=== PATIENT | female | born 1975 | race Caucasian/White ===

== ENCOUNTER 2024-01-31 13:29 | Observation (INO) ==
--- NOTE | 2024-01-31 13:46 | Emergency Department Note ---
History of Present Illness General Chief complaint: Dizziness Stated complaint: DIZZINESS WITH NAUSEA Time Seen by Provider: 01/31/24 13:40 History of Present Illness NAME: SAMMY ORANTES AGE: 48 SEX: F : 1975 ARRIVES VIA: Walk-In INFORMANT: Patient ED PROVIDER(S): TOÑO Sotelo, Lora Peralta DO The patient is a well-appearing 48-year-old female who arrives to the emergency department for evaluation of dizziness that began yesterday morning when she awoke. She reports she felt fine while laying in bed, however when she stood up to use the restroom she almost fell over. She reports she had to close her eyes for 30 seconds for the dizziness to go away. She reports she took an herbal supplement for the dizziness, which did not help. She denies a history of vertigo, however she reports she did have recent episode of sinus congestion with popping in her ears. She denies any difficulty with speech, unilateral weakness, headache, at this time. Home Medications Medication Instructions Recorded Confirmed Type atorvastatin 10 mg tablet 10 mg PO HS 01/31/24 01/31/24 History Allergies Allergy/AdvReac Type Severity Reaction Status Date / Time No Known Allergies Allergy Unverified 01/31/24 15:20 Past Med/Surg History Medical History HLD (hyperlipidemia) Iron deficiency anemia Surgical History (Updated 01/31/24 @ 18:47 by Heike Carlson PA-C) Hx of tonsillectomy Hx of esophagogastroduodenoscopy Hx of colonoscopy Family History (Updated 01/31/24 @ 18:48 by Heike Carlson PA-C) Father Coronary heart disease Other Heart disease Social History (Updated 01/31/24 @ 19:00 by Heike Carlson PA-C) Smoking Status: Former smoker Smoking End Date: quit 10 years ago; Hx Alcohol Use: No Hx Substance Use: No Preferred Language: Tamaz[place] marital status: Feels Safe at Home: Yes Physical Exam Vital Signs Vital Signs - 24 hr 01/31/24 13:30 01/31/24 13:32 01/31/24 13:49 Temperature 36.3 C L Temperature Source Temporal Artery Scan Pulse Rate 72 Pulse Rate [Left Finger] 60 Pulse Rate from SpO2 Sensor Pulse Rhythm Regular Pulse Strength Normal Respiratory Rate 18 20 Respiratory Effort / Characteristics Non-Labored Spontaneous Non-Labored Spontaneous Respiratory Depth Normal Normal Respiratory Pattern Regular Regular Blood Pressure 137/89 Blood Pressure [Right Arm] 121/75 Blood Pressure Mean 105 Blood Pressure Mean [Right Arm] 90 Blood Pressure Position Sitting Blood Pressure Position [Right Arm] Semi-fowlers Pulse Oximetry 98 99 Oxygen Delivery Method Room Air Room Air Room Air Sepsis Recent Fever Within 48 Hours No Sepsis New/Unexplained Change in Mental Status No Sepsis Action Taken by Nursing No Action Required 01/31/24 14:19 01/31/24 14:20 01/31/24 14:30 Temperature Temperature Source Pulse Rate 56 L 55 L 58 L Pulse Rate [Left Finger] Pulse Rate from SpO2 Sensor 57 L 57 L Pulse Rhythm Pulse Strength Respiratory Rate 19 17 14 Respiratory Effort / Characteristics Respiratory Depth Respiratory Pattern Blood Pressure 119/69 Blood Pressure [Right Arm] Blood Pressure Mean 85 Blood Pressure Mean [Right Arm] Blood Pressure Position Blood Pressure Position [Right Arm] Pulse Oximetry 98 98 98 Oxygen Delivery Method Room Air Sepsis Recent Fever Within 48 Hours Sepsis New/Unexplained Change in Mental Status Sepsis Action Taken by Nursing 01/31/24 14:31 01/31/24 15:00 01/31/24 15:30 Temperature Temperature Source Pulse Rate 56 L 61 56 L Pulse Rate [Left Finger] Pulse Rate from SpO2 Sensor Pulse Rhythm Pulse Strength Respiratory Rate 15 11 L Respiratory Effort / Characteristics Respiratory Depth Respiratory Pattern Blood Pressure 130/77 119/73 Blood Pressure [Right Arm] Blood Pressure Mean 94 88 Blood Pressure Mean [Right Arm] Blood Pressure Position Blood Pressure Position [Right Arm] Pulse Oximetry 98 100 Oxygen Delivery Method Room Air Sepsis Recent Fever Within 48 Hours Sepsis New/Unexplained Change in Mental Status Sepsis Action Taken by Nursing 01/31/24 16:00 01/31/24 16:00 01/31/24 16:30 Temperature Temperature Source Pulse Rate 67 65 66 Pulse Rate [Left Finger] Pulse Rate from SpO2 Sensor Pulse Rhythm Pulse Strength Respiratory Rate 19 14 22 Respiratory Effort / Characteristics Respiratory Depth Respiratory Pattern Blood Pressure 126/73 126/73 134/76 Blood Pressure [Right Arm] Blood Pressure Mean 90 84 95 Blood Pressure Mean [Right Arm] Blood Pressure Position Blood Pressure Position [Right Arm] Pulse Oximetry 96 100 99 Oxygen Delivery Method Room Air Room Air Room Air Sepsis Recent Fever Within 48 Hours Sepsis New/Unexplained Change in Mental Status Sepsis Action Taken by Nursing 01/31/24 16:40 01/31/24 16:50 01/31/24 17:00 Temperature Temperature Source Pulse Rate 62 61 78 Pulse Rate [Left Finger] Pulse Rate from SpO2 Sensor 62 Pulse Rhythm Pulse Strength Respiratory Rate 17 15 20 Respiratory Effort / Characteristics Respiratory Depth Respiratory Pattern Blood Pressure Blood Pressure [Right Arm] Blood Pressure Mean Blood Pressure Mean [Right Arm] Blood Pressure Position Blood Pressure Position [Right Arm] Pulse Oximetry 100 100 99 Oxygen Delivery Method Room Air Sepsis Recent Fever Within 48 Hours Sepsis New/Unexplained Change in Mental Status Sepsis Action Taken by Nursing 01/31/24 17:00 01/31/24 17:30 01/31/24 18:00 Temperature Temperature Source Pulse Rate 72 Pulse Rate [Left Finger] Pulse Rate from SpO2 Sensor Pulse Rhythm Pulse Strength Respiratory Rate 15 Respiratory Effort / Characteristics Respiratory Depth Respiratory Pattern Blood Pressure 139/73 122/84 124/84 Blood Pressure [Right Arm] Blood Pressure Mean 95 96 90 Blood Pressure Mean [Right Arm] Blood Pressure Position Blood Pressure Position [Right Arm] Pulse Oximetry 100 Oxygen Delivery Method Room Air Sepsis Recent Fever Within 48 Hours Sepsis New/Unexplained Change in Mental Status Sepsis Action Taken by Nursing 01/31/24 18:00 01/31/24 18:00 01/31/24 18:30 Temperature Temperature Source Pulse Rate 76 66 Pulse Rate [Left Finger] Pulse Rate from SpO2 Sensor Pulse Rhythm Pulse Strength Respiratory Rate 16 16 Respiratory Effort / Characteristics Respiratory Depth Respiratory Pattern Blood Pressure 124/84 117/61 Blood Pressure [Right Arm] Blood Pressure Mean 97 92 Blood Pressure Mean [Right Arm] Blood Pressure Position Blood Pressure Position [Right Arm] Pulse Oximetry 100 100 Oxygen Delivery Method Room Air Room Air Sepsis Recent Fever Within 48 Hours Sepsis New/Unexplained Change in Mental Status Sepsis Action Taken by Nursing 01/31/24 18:30 Temperature Temperature Source Pulse Rate 69 Pulse Rate [Left Finger] Pulse Rate from SpO2 Sensor Pulse Rhythm Pulse Strength Respiratory Rate 18 Respiratory Effort / Characteristics Respiratory Depth Respiratory Pattern Blood Pressure Blood Pressure [Right Arm] Blood Pressure Mean Blood Pressure Mean [Right Arm] Blood Pressure Position Blood Pressure Position [Right Arm] Pulse Oximetry 99 Oxygen Delivery Method Room Air Sepsis Recent Fever Within 48 Hours Sepsis New/Unexplained Change in Mental Status Sepsis Action Taken by Nursing VITALS: Vitals are noted on the nurse's note and reviewed by myself. Vital signs stable. GENERAL: 48-year-old female, in no acute distress, nondiaphoretic, well- developed well-nourished. SKIN: The skin was without rashes, erythema, edema, or bruising. HEAD: Normocephalic atraumatic. EARS: External auditory canals clear, tympanic membranes pearly aldridge without erythema, right TM effusion. EYES: Nystagmus present with lateral left movement. NECK: Supple without nuchal rigidity. No lymphadenopathy. No thyromegaly. Cervical spine is nontender. No JVD. HEART: Regular rate and rhythm without murmurs gallops or rubs. LUNGS: Clear to auscultation bilaterally without wheezes, rales or rhonchi. No retractions or accessory muscle use. MUSCULOSKELETAL: No muscle atrophy, erythema, or edema noted. Full range of motion without joint tenderness in all extremities. No tenderness to palpation. Strength 5/5 throughout. NEURO: Patient was alert and oriented to person place and time. No focal neurological deficits. Course Administered Medications Atorvastatin Calcium (Atorvastatin 10 Mg Tab) 10 mg PO HS ALTON Stop: 03/01/24 21:24 Last Admin: 01/31/24 22:16 Dose: 10 mg Documented By: DMM Discontinued Medications Diazepam (Diazepam 5 Mg/Ml 10ml Vial) 2.5 mg IV NOW STA Stop: 01/31/24 15:40 Last Admin: 01/31/24 15:53 Dose: 2.5 mg Documented By: LMAri Sodium Chloride (Nss) 1,000 mls @ 999 mls/hr IV .Q1H1M ONE Stop: 01/31/24 16:39 Last Infusion: 01/31/24 16:55 Dose: Infused Documented By: Admin: 01/31/24 15:51 Dose: 999 mls/hr Documented By: LMM Ioversol (Optiray 320 125ml) 115 ml IV ONCE ONE Stop: 01/31/24 17:16 Last Admin: 01/31/24 17:15 Dose: 115 ml Documented By: ANAT Meclizine HCl (Meclizine Hcl 25 Mg Tab) 25 mg PO NOW STA Stop: 01/31/24 13:47 Last Admin: 01/31/24 13:56 Dose: 25 mg Documented By: LMM Methylprednisolone (Methylprednisolone 125 Mg/2 Ml Vial) 125 mg IV NOW STA Stop: 01/31/24 18:59 Last Admin: 01/31/24 19:50 Dose: Not Given Documented By: AMOL Ondansetron HCl (Ondansetron Inj 2 Mg/Ml 2 Ml Vial) 4 mg IV NOW STA Stop: 01/31/24 16:54 Last Admin: 01/31/24 17:02 Dose: 4 mg Documented By: IVONNE Prednisone (Prednisone 20 Mg Tab) 40 mg PO NOW ONE Stop: 01/31/24 19:04 Last Admin: 01/31/24 19:52 Dose: 40 mg Documented By: AMOL Medical Decision Making Differential Diagnosis Benign positional vertigo, dehydration, hypovolemia, anemia, tumor, infection, hypoglycemia, electrolyte abnormalities, cardiac sources, intracerebral event, toxicologic, neurologic, as well as other pathologies. Medical Records Attestation: I reviewed the patient's medical records. Home Medications Current Medication List: was personally reviewed by me Laboratory Data Attestation: I reviewed the patient's lab results. No leukocytosis, stable hemoglobin and hematocrit, history of iron deficiency anemia, no electrolyte abnormalities. 01/31/24 15:40 01/31/24 15:40 Lab Results 01/31/24 Range/Units 15:40 WBC 5.86 (4.8-10.8) K/ul RBC 4.28 (4.20-5.40) M/uL Hgb 10.2 L (12.0-16.0) g/dl Hct 33.8 L (37.0-47.0) % MCV 79.0 L (80.0-100.0) fL MCH 23.8 L (25.0-34.0) pg MCHC 30.2 L (32.0-36.0) g/dL RDW Std Deviation 53.6 H (36.4-46.3) fL RDW Coeff of Gregorio 19.4 H (11.5-14.5) % Plt Count 287 (130-400) K/uL MPV 10.0 (9.4-12.4) fL Immature Gran % (Auto) 0.2 % Neut % (Auto) 62.2 % Lymph % (Auto) 27.3 % Quay % (Auto) 6.0 % Eos % (Auto) 3.6 % Baso % (Auto) 0.7 % Neut # (Auto) 3.65 (1.40-6.50) K/uL Lymph # (Auto) 1.60 (1.20-3.40) K/uL Quay # (Auto) 0.35 (0.11-0.59) K/uL Eos # (Auto) 0.21 (0.00-0.50) K/uL Baso # (Auto) 0.04 (0.00-0.20) K/uL Immature Gran # (Auto) 0.01 (0.01-0.20) K/uL Sodium 139 (136-145) mmol/L Potassium 3.8 (3.5-5.1) mmol/L Chloride 108 H (98-107) mmol/L Carbon Dioxide 24 (21-32) mmol/L Anion Gap 7 (3-11) BUN 12 (6-23) mg/dl Creatinine 0.66 (0.6-1.2) mg/dl Est Cr Clr Drug Dosing 103.4 ml/min Est GFR ( Amer) 122.8 ml/min Est GFR (Non-Af Amer) 105.9 ml/min BUN/Creatinine Ratio 18.2 (10-20) Glucose 89 (70-99(Fasting)) mg/dl Calcium 9.3 (8.6-10.3) mg/dl Total Bilirubin 0.4 (0.2-1.0) mg/dl AST 19 (13-39) U/L ALT 18 (7-52) U/L Alkaline Phosphatase 69 (34-104) U/L Total Protein 7.7 (6.0-8.3) gm/dl Albumin 4.6 (3.4-5.0) gm/dl Globulin 3.1 (2.5-4.0) gm/dl Albumin/Globulin Ratio 1.5 (0.9-2) Imaging Data Radiologist's Impression: Head CT 01/31/24 13:53 CT head/brain wo con CLINICAL HISTORY: dizziness Technique: Contiguous axial CT images of the head were acquired from the base of the skull to the vertex without intravenous contrast administration. Images were viewed in brain, subdural and bone windows. Automated dose lowering techniques and/or adjustment according to patient size were utilized for this exam. Comparison: None available at the time of this dictation. Findings: The ventricles, basal cisterns, and cerebral sulci are normal. There is no acute intracranial hemorrhage or evidence of acute territorial infarction. Neither mass effect, shift of the midline structures, nor abnormal extra-axial fluid collections are shown. Imaged portions of the paranasal sinuses and mastoid air cells are clear. The orbits appear normal. There are no acute fractures of the calvaria or scalp swelling. Impression: No acute intracranial hemorrhage, no evidence of acute territorial infarction or other acute intracranial disease process. ACT 112: Negative or not required by law. Electronically signed by: Beny Sutton M.D. 01/31/2024 2:11 PM Head CTA 01/31/24 16:53 CT angio head w con, CT angio neck with con CLINICAL HISTORY: dizzy TECHNIQUE: CT angiography of the head and neck was performed following intravenous administration of iodinated contrast. Coronal and sagittal MIPS were obtained from the axial data set and were submitted for review. Automated dose lowering techniques and/or adjustment according to patient size were utilized for this examination. All measurements were calculated based on NASCET criteria. Comparison: Comparison is made to CT head 01/31/2024 FINDINGS: Small thyroid nodules are seen which do not require follow-up by ACR criteria. CTA Neck: A 3 vessel aortic arch is shown. There is no significant atherosclerotic plaque in the aortic arch or the origins of the innominate, left common carotid, and left subclavian arteries. The common carotid, external carotid, cervical segments of the internal carotid arteries, and the cervical segments of the vertebral arteries are patent without hemodynamically significant stenosis. The left vertebral artery is dominant. CTA Head: The anterior and posterior cerebral circulations are patent. No hemodynamically significant stenosis, aneurysm, dissection, or arteriovenous malformation is shown. IMPRESSION: 1. No occlusion, hemodynamically significant stenosis, or dissection in the major cervical arteries. 2. No occlusion, hemodynamically significant stenosis, aneurysm, dissection, or arteriovenous malformation in the major intracranial arteries. Assessment of stenosis of the internal carotid arteries is based on NASCET criteria. ACT 112: Negative or not required by law. Electronically signed by: Beny Sutton M.D. 01/31/2024 5:58 PM Neck CTA 01/31/24 16:53 CT angio head w con, CT angio neck with con CLINICAL HISTORY: dizzy TECHNIQUE: CT angiography of the head and neck was performed following intravenous administration of iodinated contrast. Coronal and sagittal MIPS were obtained from the axial data set and were submitted for review. Automated dose lowering techniques and/or adjustment according to patient size were utilized for this examination. All measurements were calculated based on NASCET criteria. Comparison: Comparison is made to CT head 01/31/2024 FINDINGS: Small thyroid nodules are seen which do not require follow-up by ACR criteria. CTA Neck: A 3 vessel aortic arch is shown. There is no significant atherosclerotic plaque in the aortic arch or the origins of the innominate, left common carotid, and left subclavian arteries. The common carotid, external carotid, cervical segments of the internal carotid arteries, and the cervical segments of the vertebral arteries are patent without hemodynamically significant stenosis. The left vertebral artery is dominant. CTA Head: The anterior and posterior cerebral circulations are patent. No hemodynamically significant stenosis, aneurysm, dissection, or arteriovenous malformation is shown. IMPRESSION: 1. No occlusion, hemodynamically significant stenosis, or dissection in the major cervical arteries. 2. No occlusion, hemodynamically significant stenosis, aneurysm, dissection, or arteriovenous malformation in the major intracranial arteries. Assessment of stenosis of the internal carotid arteries is based on NASCET criteria. ACT 112: Negative or not required by law. Electronically signed by: Beny Sutton M.D. 01/31/2024 5:58 PM ECG Data Attestation: I personally reviewed and interpreted this ECG as follows: Indication: + other (dizziness) Rate (beats per minute): 65 Rhythm: + normal sinus ECG [place]: + Normal ECG ST segments: + Normal ST segments Comparison ECG Date: no prior available MDM Narrative The patient is a well-appearing 48-year-old female who arrives to the emergency department for the above-stated complaint. Upon examination the patient does have positive nystagmus to the left, dizziness and a sensation of the room spinning with position changes. Oral meclizine was provided to the patient, as well as an order for a dry head CT. The CT scan of the head was reassuring. Upon reexamination the patient did not exhibit symptomatic improvement of the dizziness from the meclizine. A saline lock was placed, and the patient was provided an IV dose of Valium. CBC, CMP were obtained at that time as well. CBC showed no leukocytosis, chronic iron deficiency anemia, CMP showed no electrolyte abnormalities. EKG was obtained which showed normal sinus rhythm at a rate of 65. I evaluated the patient approximately 1 hour after administration of the Valium. She reports a slight improvement, however with sitting up the patient did exhibit significant episode of dizziness. CTA imaging of the head and neck were obtained, which were reassuring at that time. I did speak with the admitting team regarding the patient. They agreed to keep her based on the acute onset of dizziness, no history of previous episodes of vertigo. Dr. Julia Garcia will take over care of the patient at this time. Impression & Plan Vertigo Discharge Plan Visit Data Chief Complaint: Dizziness Stated Complaint: DIZZINESS WITH NAUSEA ED Provider: Lora Peralta ED Midlevel Provider: Alycia Obregon Discharge Problem: Vertigo Patient Disposition: Admitted As Inpatient Discharge Instructions Interventions: ED Discharge Assessment Last Done: 01/31/24 20:55
[2024-01-31] MEDS: MECLIZINE HCL 25 MG TAB PO STA (13:56)
--- NOTE | 2024-01-31 14:13 | CT Scan Report ---
CT head/brain wo con CLINICAL HISTORY: dizziness Technique: Contiguous axial CT images of the head were acquired from the base of the skull to the elena dieudonne without intravenous contrast administration. Images were viewed in brain, subdural and bone [facility]. Automated dose lowering techniques and/or adjustment according to patient size were utilized for this exam. Comparison: None available at the time of this dictation. Findings: The ventricles, basal cisterns, and cerebral sulci are normal. There is no acute intracranial hemorrh age or evidence of acute territorial infarction. Neither mass effect, shift of the midline structures , nor abnormal extra-axial fluid collections are shown. Imaged portions of the paranasal sinuses and mastoid air cells are clear. The orbits appear normal. There are no acute fractures of the calvaria or scalp swelling. Impression: No acute intracranial hemorrhage, no evidence of acute territorial infarction or other acute intracra nial disease process. ACT 112: Negative or not required by law. Electronically signed by: Beny Sutton M.D. 01/31/2024 2:11 PM
[2024-01-31] MEDS: SODIUM CHLORIDE 0.9% 1,000 ML IV ONE (15:51)
[2024-01-31] MEDS: diazePAM 5 MG/ML 10ML VIAL IV STA (15:53)
[2024-01-31 16:30] LABS: Basophils # (auto) 0.04 K/uL (0.00-0.20); Basophils % (auto) 0.7 %; Eosinophils # (auto) 0.21 K/uL (0.00-0.50); Eosinophils % (auto) 3.6 %; Hematocrit (blood only) 33.8 % (37.0-47.0); Hemoglobin 10.2 g/dl (12.0-16.0); Immature Granulocytes # (auto) 0.01 K/uL (0.01-0.20); Immature Granulocytes % (auto) 0.2 %; Lymphocytes % (auto) 27.3 %; Mean Corpuscular Hemoglobin 23.8 pg (25.0-34.0); Mean Corpuscular Hgb Conc 30.2 g/dL (32.0-36.0); Monocytes # (auto) 0.35 K/uL (0.11-0.59); Neutrophils # (auto) 3.65 K/uL (1.40-6.50); Neutrophils % (auto) 62.2 %; Platelet Count 287 K/uL (130-400); RDW Coefficient of Variation 19.4 % (11.5-14.5); RDW Standard Deviation 53.6 fL (36.4-46.3); Red Blood Count 4.28 M/uL (4.20-5.40); White Blood Count 5.86 K/ul (4.8-10.8)
[2024-01-31 16:50] LABS: Albumin Globulin Ratio 1.5 (0.9-2); Albumin Level 4.6 gm/dl (3.4-5.0); BUN Creatinine Ratio 18.2 (10-20); Bilirubin,Total 0.4 mg/dl (0.2-1.0); Calcium 9.3 mg/dl (8.6-10.3); Creatinine Clr Calc Pharmacy 103.4 ml/min; Est GFR (African American) 122.8 ml/min; Est GFR (Non-African American) 105.9 ml/min; Globulin 3.1 gm/dl (2.5-4.0); Potassium 3.8 mmol/L (3.5-5.1); Total Protein 7.7 gm/dl (6.0-8.3)
[2024-01-31] MEDS: ONDANSETRON INJ 2 MG/ML 2 ML VIAL IV STA (17:02)
[2024-01-31] MEDS: OPTIRAY 320 125ml IV ONE (17:15)
--- NOTE | 2024-01-31 17:59 | CT Scan Report ---
CT angio head w con, CT angio neck with con CLINICAL HISTORY: dizzy TECHNIQUE: CT angiography of the head and neck was performed following intravenous administration of iodinated contrast. Coronal and sagittal MIPS were obtained from the axial data set and were submitt ed for review. Automated dose lowering techniques and/or adjustment according to patient size were u tilized for this examination. All measurements were calculated based on NASCET criteria. Comparison: Comparison is made to CT head 01/31/2024 FINDINGS: Small thyroid nodules are seen which do not require follow-up by ACR criteria. CTA Neck: A 3 vessel aortic arch is shown. There is no significant atherosclerotic plaque in the aor tic arch or the origins of the innominate, left common carotid, and left subclavian arteries. The co mmon carotid, external carotid, cervical segments of the internal carotid arteries, and the cervical segments of the vertebral arteries are patent without hemodynamically significant stenosis. The left vertebral artery is dominant. CTA Head: The anterior and posterior cerebral circulations are patent. No hemodynamically significan t stenosis, aneurysm, dissection, or arteriovenous malformation is shown. IMPRESSION: 1. No occlusion, hemodynamically significant stenosis, or dissection in the major cervical arteries. 2. No occlusion, hemodynamically significant stenosis, aneurysm, dissection, or arteriovenous malfor mation in the major intracranial arteries. Assessment of stenosis of the internal carotid arteries is based on NASCET criteria. ACT 112: Negative or not required by law. Electronically signed by: Beny Sutton M.D. 01/31/2024 5:58 PM
--- NOTE | 2024-01-31 18:49 | History & Physical Report ---
Date of Service January 31, 2024 Assessment & Plan (1) Vertigo: (2) HLD (hyperlipidemia): (3) Iron deficiency anemia: Plan This is a 48 y old F who has a significant PMH of HLD, iron deficiency anemia, hx of h pylori s/p treatment, hx of bleeding hemorrhoids who presents to ED 2/2 dizziness. Vertigo admit to med tele under observation possible labrythinitis vs neuritis vs BPPV pt with recent viral illness a few weeks ago, likely influenza refractory to meclizine and diazepam will trial prednisone 40mg x 1 now Initiate medrol dose pack starting tomorrow obtain MRI brain w and w/o contrast to r/o CVA given hx of HLD Prn Meclizine consult PT for amanda maneuver cbc, cmp, mag, a1c, lipid panel in a.m. Iron def anemia in setting of bleeding hemorrhoid follows heme has been receiving IV venofer, will receive dose 4/4 this week she is to get surgical revision of hemorrhoid in near future HLD chronic, stable on statin lipid panel in a.m. DVT ppx: SCDS FULL CODE PCP: Lorelei Tam Dispo : admit to med/surg tele for refractory vertigo Pt was seen and examined in collaboration with DR. Garcia, please see addendum A total of 45 minutes was spent coordinating, documenting, and providing care for this patient excluding time spent in the performance of separately billed services. This included personally viewing all current laboratories and imaging studies, medication reconciliation, outpatient chart review, and discussion with specialists. History of Present Illness Chief Complaint: Dizziness Primary Care Provider: Dr. Lorelei Tam This is a 48 y old F who has a significant PMH of HLD, iron deficiency anemia, hx of h pylori s/p treatment, hx of bleeding hemorrhoids who presents to ED 2/2 dizziness. She describes the dizziness as, "spinning." I feel like I'm on a roller coaster." She denies hx of vertigo or dizziness in the past. She had a viral illness, likely influenza, a few weeks ago. She had sinus congestion, nasal drip and ear popping. She denies f/c/s, chest pain, sob, n/v/d, change in bowel or urinary habits, lower extremity swelling, unilateral weakness. She walks slowly and has not fallen. She denies prior hx of migraine. She denies visual changes or double vision. She has an IUD in place and no possibility of . She is on immunotherapy for environmental allergies. Allergies Allergy/AdvReac Type Severity Reaction Status Date / Time No Known Allergies Allergy Unverified 01/31/24 15:20 Home Medications Medication Instructions Recorded Confirmed Type atorvastatin 10 mg tablet 10 mg PO HS 01/31/24 01/31/24 History Past Med/Surg History Medical History HLD (hyperlipidemia) Iron deficiency anemia Surgical History (Updated 01/31/24 @ 18:47 by Heike Carlson PA-C) Hx of tonsillectomy Hx of esophagogastroduodenoscopy Hx of colonoscopy Family History (Updated 01/31/24 @ 18:48 by Heike Carlson PA-C) Father Coronary heart disease Other Heart disease Social History (Updated 01/31/24 @ 19:00 by Heike Carlson PA-C) Smoking Status: Former smoker Smoking End Date: quit 10 years ago; Hx Alcohol Use: No Hx Substance Use: No Preferred Language: Bruneian marital status: Feels Safe at Home: Yes Review of Systems Review of Systems: All systems reviewed & are unremarkable except as noted in HPI & below Physical Exam Physical Exam: please refer to Dr. Garcia addendum for physical exam findings Results & Data Results & Data Vital Signs (Past 12 Hours) Vital Signs Temp Pulse Pulse Resp BP BP Pulse Ox 01/31/24 18:30 69 18 99 01/31/24 18:30 117/61 01/31/24 18:00 66 16 124/84 100 01/31/24 18:00 76 16 100 01/31/24 18:00 124/84 01/31/24 17:30 72 15 122/84 100 01/31/24 17:00 139/73 01/31/24 17:00 78 20 99 01/31/24 16:50 61 15 100 01/31/24 16:40 62 17 100 01/31/24 16:30 66 22 134/76 99 01/31/24 16:00 65 14 126/73 100 01/31/24 16:00 67 19 126/73 96 01/31/24 15:30 56 L 11 L 119/73 100 01/31/24 15:00 61 15 130/77 98 01/31/24 14:31 56 L 01/31/24 14:30 58 L 14 119/69 98 01/31/24 14:20 55 L 17 98 01/31/24 14:19 56 L 19 98 01/31/24 13:49 01/31/24 13:32 36.3 C L 72 20 137/89 99 01/31/24 13:30 60 18 121/75 98 O2 Del Method 01/31/24 18:30 Room Air 01/31/24 18:30 01/31/24 18:00 Room Air 01/31/24 18:00 Room Air 01/31/24 18:00 01/31/24 17:30 Room Air 01/31/24 17:00 01/31/24 17:00 Room Air 01/31/24 16:50 01/31/24 16:40 01/31/24 16:30 Room Air 01/31/24 16:00 Room Air 01/31/24 16:00 Room Air 01/31/24 15:30 Room Air 01/31/24 15:00 01/31/24 14:31 01/31/24 14:30 Room Air 01/31/24 14:20 01/31/24 14:19 01/31/24 13:49 Room Air 01/31/24 13:32 Room Air 01/31/24 13:30 Room Air Laboratory Results I have independently reviewed and interpreted patient's admitting labs including CBC, CMP Diagnostic Findings Head CT 01/31/24 13:53 CT head/brain wo con CLINICAL HISTORY: dizziness Technique: Contiguous axial CT images of the head were acquired from the base of the skull to the vertex without intravenous contrast administration. Images were viewed in brain, subdural and bone windows. Automated dose lowering techniques and/or adjustment according to patient size were utilized for this exam. Comparison: None available at the time of this dictation. Findings: The ventricles, basal cisterns, and cerebral sulci are normal. There is no acute intracranial hemorrhage or evidence of acute territorial infarction. Neither mass effect, shift of the midline structures, nor abnormal extra-axial fluid collections are shown. Imaged portions of the paranasal sinuses and mastoid air cells are clear. The orbits appear normal. There are no acute fractures of the calvaria or scalp swelling. Impression: No acute intracranial hemorrhage, no evidence of acute territorial infarction or other acute intracranial disease process. ACT 112: Negative or not required by law. Electronically signed by: Beny Sutton M.D. 01/31/2024 2:11 PM Head CTA 01/31/24 16:53 CT angio head w con, CT angio neck with con CLINICAL HISTORY: dizzy TECHNIQUE: CT angiography of the head and neck was performed following intravenous administration of iodinated contrast. Coronal and sagittal MIPS were obtained from the axial data set and were submitted for review. Automated dose lowering techniques and/or adjustment according to patient size were utilized for this examination. All measurements were calculated based on NASCET criteria. Comparison: Comparison is made to CT head 01/31/2024 FINDINGS: Small thyroid nodules are seen which do not require follow-up by ACR criteria. CTA Neck: A 3 vessel aortic arch is shown. There is no significant atherosclerotic plaque in the aortic arch or the origins of the innominate, left common carotid, and left subclavian arteries. The common carotid, external carotid, cervical segments of the internal carotid arteries, and the cervical segments of the vertebral arteries are patent without hemodynamically significant stenosis. The left vertebral artery is dominant. CTA Head: The anterior and posterior cerebral circulations are patent. No hemodynamically significant stenosis, aneurysm, dissection, or arteriovenous malformation is shown. IMPRESSION: 1. No occlusion, hemodynamically significant stenosis, or dissection in the major cervical arteries. 2. No occlusion, hemodynamically significant stenosis, aneurysm, dissection, or arteriovenous malformation in the major intracranial arteries. Assessment of stenosis of the internal carotid arteries is based on NASCET criteria. ACT 112: Negative or not required by law. Electronically signed by: Beny Sutton M.D. 01/31/2024 5:58 PM Neck CTA 01/31/24 16:53 CT angio head w con, CT angio neck with con CLINICAL HISTORY: dizzy TECHNIQUE: CT angiography of the head and neck was performed following intravenous administration of iodinated contrast. Coronal and sagittal MIPS were obtained from the axial data set and were submitted for review. Automated dose lowering techniques and/or adjustment according to patient size were utilized for this examination. All measurements were calculated based on NASCET criteria. Comparison: Comparison is made to CT head 01/31/2024 FINDINGS: Small thyroid nodules are seen which do not require follow-up by ACR criteria. CTA Neck: A 3 vessel aortic arch is shown. There is no significant atherosclerotic plaque in the aortic arch or the origins of the innominate, left common carotid, and left subclavian arteries. The common carotid, external carotid, cervical segments of the internal carotid arteries, and the cervical segments of the vertebral arteries are patent without hemodynamically significant stenosis. The left vertebral artery is dominant. CTA Head: The anterior and posterior cerebral circulations are patent. No hemodynamically significant stenosis, aneurysm, dissection, or arteriovenous malformation is shown. IMPRESSION: 1. No occlusion, hemodynamically significant stenosis, or dissection in the major cervical arteries. 2. No occlusion, hemodynamically significant stenosis, aneurysm, dissection, or arteriovenous malformation in the major intracranial arteries. Assessment of stenosis of the internal carotid arteries is based on NASCET criteria. ACT 112: Negative or not required by law. Electronically signed by: Beny Sutton M.D. 01/31/2024 5:58 PM Medications Administered Medication List Discontinued Medications Diazepam (Diazepam 5 Mg/Ml 10ml Vial) 2.5 mg IV NOW STA Stop: 01/31/24 15:40 Last Admin: 01/31/24 15:53 Dose: 2.5 mg Documented By: LMAri Sodium Chloride (Nss) 1,000 mls @ 999 mls/hr IV .Q1H1M ONE Stop: 01/31/24 16:39 Last Infusion: 01/31/24 16:55 Dose: Infused Documented By: LMAri Admin: 01/31/24 15:51 Dose: 999 mls/hr Documented By: LMM Ioversol (Optiray 320 125ml) 115 ml IV ONCE ONE Stop: 01/31/24 17:16 Last Admin: 01/31/24 17:15 Dose: 115 ml Documented By: LANNYK Meclizine HCl (Meclizine Hcl 25 Mg Tab) 25 mg PO NOW STA Stop: 01/31/24 13:47 Last Admin: 01/31/24 13:56 Dose: 25 mg Documented By: LMM Ondansetron HCl (Ondansetron Inj 2 Mg/Ml 2 Ml Vial) 4 mg IV NOW STA Stop: 01/31/24 16:54 Last Admin: 01/31/24 17:02 Dose: 4 mg Documented By: LMM ECG Additional Comments: I have independently reviewed and interpreted patient's admitting EKG which revealed: 65, nsr, no st or t wave change COVID-19 Results Results COVID-19 Adm Lab Results: RBC 4.28 M/uL (4.20-5.40) 01/31/24 WBC 5.86 K/ul (4.8-10.8) 01/31/24 Hgb 10.2 g/dl (12.0-16.0) L 01/31/24 Hct 33.8 % (37.0-47.0) L 01/31/24 Plt Count 287 K/uL (130-400) 01/31/24 Neutrophils (%) (Auto) 62.2 % 01/31/24 Lymphocytes (%) (Auto) 27.3 % 01/31/24 Monocytes # (Auto) 0.35 K/uL (0.11-0.59) 01/31/24 Eosinophils # (Auto) 0.21 K/uL (0.00-0.50) 01/31/24 Immature Granulocyte % (Auto) 0.2 % 01/31/24 Neutrophils # (Auto) 3.65 K/uL (1.40-6.50) 01/31/24 Lymphocytes # (Auto) 1.60 K/uL (1.20-3.40) 01/31/24 Monocytes # (Auto) 0.35 K/uL (0.11-0.59) 01/31/24 Eosinophils # (Auto) 0.21 K/uL (0.00-0.50) 01/31/24 Basophils # (Auto) 0.04 K/uL (0.00-0.20) 01/31/24 Immature Granulocyte # (Auto) 0.01 K/uL (0.01-0.20) 4 Na 139 mmol/L (136-145) 01/31/24 K 3.8 mmol/L (3.5-5.1) 01/31/24 Cl 108 mmol/L (98-107) H 01/31/24 CO2 24 mmol/L (21-32) 01/31/24 Anion Gap 7 (3-11) 01/31/24 BUN 12 mg/dl (6-23) 01/31/24 Creatinine 0.66 mg/dl (0.6-1.2) 01/31/24 BUN/Creatinine Ratio 18.2 (10-20) 01/31/24 Glucose Level 89 mg/dl (70-99(Fasting)) 01/31/24 Ca 9.3 mg/dl (8.6-10.3) 01/31/24 Total Bilirubin 0.4 mg/dl (0.2-1.0) 01/31/24 AST/SGOT 19 U/L (13-39) 01/31/24 ALT/SGPT 18 U/L (7-52) 01/31/24 Alkaline Phosphatase 69 U/L (34-104) 01/31/24 Total Protein 7.7 gm/dl (6.0-8.3) 01/31/24 Albumin 4.6 gm/dl (3.4-5.0) 01/31/24 Globulin 3.1 gm/dl (2.5-4.0) 01/31/24 Albumin/Globulin Ratio 1.5 (0.9-2) 01/31/24 Code Status & VTE Plan Code Status FULL CODE Supervising Physician Co-Signing Physician Notes I have seen and discussed the case with the collaborating advanced practitioner. I agree with the above H&P. I have reviewed and confirmed the patients medical history, the findings on physical examination, and the patients diagnosis and treatment plan with Aldo HONEYCUTT and agree with the information documented. In short, Ms. Dickerson is a 48 year old woman with history of HLD, prior tobacco use, iron deficiency anemia on venofer infusions, hemorrhoids who is admitted for evaluation and management of dizziness. Patient reports sudden onset dizziness last evening, that is mostly positional. She reports rooms as "spinning" and last about 45 seconds until it "settles." She denies double vision or any neurologic symptoms such as headache, vision disturbance, speech/dysphagia. Trial of fluids and meclizine unsuccessful. Imaging unremarkable. Patient with recent URI illness about 2 weeks earlier, marked by ear fullness and congestion. Denies current flu like symptoms or congestion. Prior dizziness history with TAMI, but notes this is different as anemia more orthostatic with standing rather than all position changes. GENERAL APPEARANCE: AxOx4, generally well-appearing F, no acute distress. declined phil hallpike given symptoms + laying flat and did not wish to reproduce HEENT: NC, AT. MMM. EOMI, clear conjunctiva, oropharynx clear. No nystagmus noted. no skew deviation NECK: Supple without lymphadenopathy. No stiffness or restricted ROM. HEART: Normal rate and regular rhythm, normal S1/S1, no m/r/g LUNGS: CTAB, moving air well. No crackles or wheezes are heard. ABDOMEN: Soft, nontender, nondistended with good bowel sounds heard. BACK: No CVAT, no obvious deformity. EXTREMITIES: Without cyanosis, clubbing or edema. NEUROLOGICAL: Grossly nonfocal. Alert and oriented, moving all 4 extremities. CN II-XII intact. Strength intact Skin: Warm and dry without any rash. #Persistent dizziness, predominately positional -like BPPV, however with recent illness viral neuritis possible, stroke less likely but given ongoing symptoms will r/o posterior stroke as > 40 years of age hx HLD and tobacco use TSH WNL -MRI ordered -Medrol dose pack -Amanda maneuver per PT ordered -Lipid panel & A1C ordered Rest of plan as above I spent a total of 15 minutes coordinating, documenting, and providing care for this patient excluding time spent in the performance of separately billed services. All of the aforementioned completed outside of collaborating with the assigned advanced practitioner for a full treatment plan. I have reviewed the advanced practitioner's documentation, and I agree with, and take responsibility for the plan of care
[2024-01-31] MEDS: methylPREDNISolone 125 MG/2 ML VIAL IV STA (19:50)
[2024-01-31] MEDS: predniSONE 20 MG TAB PO ONE (19:52)
[2024-01-31] MEDS ORDERED: methylPREDNISolone 4 MG TAB, 6 DAY TAPER PO SCH (21:25)
[2024-01-31] MEDS ORDERED: ALUMINUM/MAGNESIUM SUSP 30 ML UDC PO PRN (21:25)
[2024-01-31] MEDS ORDERED: ACETAMINOPHEN 325 MG TAB PO PRN (21:25)
[2024-01-31] MEDS: ATORVASTATIN 10 MG TAB PO SCH (22:16)
[2024-01-31] MEDS: GADOBUTROL 7.5ML VIAL IV ONE (23:22)
--- NOTE | 2024-02-01 00:57 | Magnetic Resonance Report ---
Exam(s): MRI HEAD W/WO Contrast IV Amt: 7.5cc gadavist EXAM: MR Head Without and With Intravenous Contrast CLINICAL HISTORY: Reason for exam: dizziness, vertigo, r/o cva. TECHNIQUE: Magnetic resonance images of the head/brain without and with intravenous contrast in multiple planes. CONTRAST: Patient received 7.5cc gadavist of IV contrast COMPARISON: Comparison made to prior head CT from January 31, 2024. FINDINGS: Brain: Minimal nonspecific white matter changes. No mass. No hemorrhage. No acute infarct. Small left choroidal fissure cyst. The flow voids at the base of the brain are intact. Normal parenchymal enhancement. The dural venous sinuses are patent. Ventricles: Unremarkable. No ventriculomegaly. Bones/joints: Unremarkable. No acute fracture. Sinuses: Unremarkable as visualized. No acute sinusitis. Mastoid air cells: Unremarkable as visualized. No mastoid effusion. Orbits: Unremarkable as visualized. IMPRESSION: No evidence of acute intracranial pathology. Minimal nonspecific white matter changes. Electronically signed by: Lisa Crespo MD 02/01/24 00:56 AM
[2024-02-01] MEDS: methylPREDNISolone 4 MG TAB PO SCH ×3 (08:10→12:57)
[2024-02-01] MEDS: MECLIZINE HCL 25 MG TAB PO PRN (08:11)
[2024-02-01 08:58] LABS: Albumin Globulin Ratio 1.6 (0.9-2); Albumin Level 4.4 gm/dl (3.4-5.0); Basophils # (auto) 0.03 K/uL (0.00-0.20); Basophils % (auto) 0.3 %; Bilirubin,Total 0.3 mg/dl (0.2-1.0); Calcium 8.9 mg/dl (8.6-10.3); Chol HDL Ratio 2.8 (0-5); Creatinine Clr Calc Pharmacy 114.7 ml/min; Est GFR (African American) 126.7 ml/min; Est GFR (Non-African American) 109.3 ml/min; Globulin 2.8 gm/dl (2.5-4.0); Hematocrit (blood only) 35.3 % (37.0-47.0); Hemoglobin 10.6 g/dl (12.0-16.0); Immature Granulocytes # (auto) 0.03 K/uL (0.01-0.20); Immature Granulocytes % (auto) 0.3 %; Lymphocytes # (auto) 0.94 K/uL (1.20-3.40); Lymphocytes % (auto) 8.9 %; Magnesium 1.8 mg/dl (1.7-2.4); Mean Corpuscular Hemoglobin 23.9 pg (25.0-34.0); Mean Corpuscular Volume 79.7 fL (80.0-100.0); Mean Platelet Volume 9.9 fL (9.4-12.4); Monocytes # (auto) 0.26 K/uL (0.11-0.59); Monocytes % (auto) 2.5 %; Neutrophils # (auto) 9.32 K/uL (1.40-6.50); Platelet Count 301 K/uL (130-400); RDW Coefficient of Variation 19.9 % (11.5-14.5); RDW Standard Deviation 55.5 fL (36.4-46.3); Red Blood Count 4.43 M/uL (4.20-5.40); Total Protein 7.2 gm/dl (6.0-8.3); White Blood Count 10.58 K/ul (4.8-10.8)
[2024-02-01 10:41] LABS: Estimated Average Glucose 94 mg/dl; Hemoglobin A1C 4.9 % (4.5-5.6)
[2024-02-01] MEDS: ONDANSETRON INJ 2 MG/ML 2 ML VIAL IV PRN (14:59)
--- NOTE | 2024-02-01 16:43 | Discharge Summary ---
Date of Service February 01, 2024 Admission HPI Per Admitting Provider This is a 48 y old F who has a significant PMH of HLD, iron deficiency anemia, hx of h pylori s/p treatment, hx of bleeding hemorrhoids who presents to ED 2/2 dizziness. She describes the dizziness as, "spinning." I feel like I'm on a roller coaster." She denies hx of vertigo or dizziness in the past. She had a viral illness, likely influenza, a few weeks ago. She had sinus congestion, nasal drip and ear popping. She denies f/c/s, chest pain, sob, n/v/d, change in bowel or urinary habits, lower extremity swelling, unilateral weakness. She walks slowly and has not fallen. She denies prior hx of migraine. She denies visual changes or double vision. She has an IUD in place and no possibility of . She is on immunotherapy for environmental allergies. Admission Exam Per Admitting Provider GENERAL APPEARANCE: AxOx4, generally well-appearing F, no acute distress. declined phil hallpike given symptoms + laying flat and did not wish to reproduce HEENT: NC, AT. MMM. EOMI, clear conjunctiva, oropharynx clear. No nystagmus noted. no skew deviation NECK: Supple without lymphadenopathy. No stiffness or restricted ROM. HEART: Normal rate and regular rhythm, normal S1/S1, no m/r/g LUNGS: CTAB, moving air well. No crackles or wheezes are heard. ABDOMEN: Soft, nontender, nondistended with good bowel sounds heard. BACK: No CVAT, no obvious deformity. EXTREMITIES: Without cyanosis, clubbing or edema. NEUROLOGICAL: Grossly nonfocal. Alert and oriented, moving all 4 extremities. CN II-XII intact. Strength intact Skin: Warm and dry without any rash. Principal Diagnosis BPPV Discharge Exam GENERAL: Alert and oriented x3. NAD, on RA. HEENT: No pallor, no icterus. Pupils equal, round and reactive to light. Oral mucosa moist. NECK: No JVD, no neck masses. HEART: S1 and S2 heard. Regular rate and rhythm. No murmur, no gallop. RESPIRATORY SYSTEM: Normal AP diameter. No accessory muscle use. No wheezing, no crackles. ABDOMEN: Soft, bowel sounds present, nontender, no distention. CENTRAL NERVOUS SYSTEM: No facial droop. Speech is clear. Obeys simple commands. Moves extremities. EXTREMITIES: No edema, no erythema seen. Discharge Data Allergies Allergy/AdvReac Type Severity Reaction Status Date / Time No Known Allergies Allergy Unverified 01/31/24 15:20 Consultations 01/31/24 18:45 ED Decision to Admit Stat Ordered Studies 01/31/24 13:53 CT head/brain wo con Stat 01/31/24 16:53 CT angio head w con Stat CT angio neck with con Stat 01/31/24 18:59 MR brain wo/w con Routine Hospital Course (1) Vertigo: (2) HLD (hyperlipidemia): (3) Iron deficiency anemia: Plan 48 y old F who has a significant PMH of HLD, iron deficiency anemia, hx of h pylori s/p treatment, hx of bleeding hemorrhoids who presents to ED 2/2 dizziness. Given recent viral infection, there was concern of labyrinthitis versus neuritis besides another dd of bppv. But given clinical picture where she had vertigo every time she rotates her head/changed position, strong likelihood of BPPV. No dizziness between changing positions from lying to sitting and sitting to standing if head were kept straight per patient. PT tri ed Amalia maneuver, aborted due to vomiting. PT retried it again later in the evening per RN, successful this time, patient moving around in the hallway with no symptoms. Patient is otherwise hemodynamically stable and had wished to go home today at bedside exam. Will discontinue dexamethasone. Patient is being discharged home with following instruction at the point of discharge: Follow-up with your primary care physician within a week time and likely you will need labs CBC/CMP/magnesium/phosphorus. Follow-up with ENT physician if recurrence of symptoms, coordinate with your PCP office to set up the referral. Take your medications as prescribed. Please make sure that you are able to get your medications today by calling your pharmacy before you leave the hospital so that your treatment continuity is not broken. Home Health Attestation I certify that this patient is under my care and that I, or a physicians circulation assistant working with me, had a face to-face encounter that meets the home health [id number] encounter requirements with this patient. The encounter with the patient was in whole, or in part, for the following medical condition, which is the primary reason for home health care (list medical condition): I certify that, based on my findings, the following services are medically necessary home health services: My clinical findings support the need for the above services because: Further, I certify that my clinical findings support that this patient is homebound (i.e. absences from home require considerable and taxing effort and are for medical reasons or [facility] or infrequently or of short duration when for other reasons) because: Certification for Home Health Services: Based on the above findings, I certify that this patient is confined to the home and needs intermittent fci care, physical therapy and/or speech therapy or continues to need occupational therapy. The patient is under my care, and I have initiated the establishment of the plan of care. This patient will be followed by a physician who will periodically review the plan of care. Total Time Total Time Spent Total Time Spent (In Minutes): 45 Discharge Plan Discharge Items Patient Disposition: Home - Self-Care Reason For Visit: VERTIGO Discharge Diagnosis: BPPV Activity: Resume your previous activity Non-emergency contact: Primary Care Provider Call non-emergency contact if: you have any medication questions Follow-up/Referrals: Lorelei Tam MD [Primary Care Provider] - Diet: Heart Healthy Addtl Attending Provider Instructions: Follow-up with your primary care physician within a week time and likely you will need labs CBC/CMP/magnesium/phosphorus. Follow-up with ENT physician if recurrence of symptoms, coordinate with your PCP office to set up the referral. Take your medications as prescribed. Please make sure that you are able to get your medications today by calling your pharmacy before you leave the hospital so that your treatment continuity is not broken. Pending Studies at Discharge: No Stand-Alone Forms: My [facility], Smoking Cessation Medications and DC Order Prescriptions: New meclizine 25 mg Tablet 25 mg PO TID PRN (Reason: dizziness) Qty: 30 0RF Continued atorvastatin 10 mg tablet 10 mg PO HS Discharge Orders: Discharge Order (Routine); Ordered 02/01/24 Ordered By: Felisha Whelan Admission Data Admit Date/Time: 01/31/24 18:57 Attending Provider: Felisha Whelan Admit Provider: Julia Garcia Primary Care Provider: Lorelei Tam Other Providers: Julia Garcia
[2024-02-01] MEDS ORDERED: methylPREDNISolone 4 MG TAB PO SCH (21:00)
--- NOTE | 2024-02-02 05:33 | Electrocardiogram Report ---
Test Reason : Blood Pressure : / mmHG Vent. Rate : 065 BPM Atrial Rate : 065 BPM P-R Int : 172 ms QRS Dur : 078 ms QT Int : 438 ms P-R-T Axes : 038 049 041 degrees QTc Int : 455 ms Normal sinus rhythm Normal ECG No previous ECGs available Confirmed by Kevin Torres ([id number]) on 02/02/2024 5:33:09 AM Referred By: REFERRED SELF Confirmed By:Kevin Torres
--- OUTSIDE RECORDS SUMMARY | 2024-02-02 06:23 | External Medical Summary | Summary of Care ---
Author Name Unknown Organization [facility] Address [address] [place] [address] Phone [phone] Care Team Providers Care Cistern Room Operator Name Role Phone Lorelei Tam MD Primary Care Provider [phone] Reason for Visit * Reason Comments IV Therapy Venofer Encounter Details Date Type Department Care Team (Latest Contact Info) Description 01/20/2024 8:30 AM EST Hem/Onc Treatment Hematology/Oncology Treatment, [address] [phone] Corin, Chair 11 Hem Onc [address] [address] Iron deficiency anemia due to chronic blood loss*; Iron deficiency anemia, unspecified iron deficiency anemia type Allergies Active Allergy Reactions Criticality Noted Date Comments Pollen 04/28/2022 documented as of this encounter (statuses as of 01/20/2024) Medications Medication Sig Dispensed Refills Start Date End Date Status valACYclovir HCl 500 MG Oral Tablet (Valtrex)Indication s:Herpes simplex virus infection Take 1 Tablet by mouth 2 times a day as needed. 0 02/19/2022 Active Levonorgestrel 20 MCG/24HR Intrauterine Intrauterine Device (Mirena)Indications :Contraception, device intrauterine Insert 1 Each into uterus once. 0 Active Mometasone Furoate 0.1 % External CreamIndications:Ec zema, unspecified type APPLY TO THE AFFECTED AREA ON LEGS AND BACK EVERY DAY NEEDED FOR 2 WEEKS 45 g 1 04/28/2022 Active Clobetasol Propionate 0.05 % External Cream (Temovate) Apply to rash once a day for 1-2 weeks as needed. 45 g 1 08/29/2022 Active Tretinoin 0.025 % External Cream Apply to face nightly. 45 g 1 08/29/2022 Active Clindamycin Phosphate 1 % External Gel Apply to acne prone areas in the morning 60 g 2 11/28/2022 Active Benefiber Oral PowderIndications:O ther constipation Take 1 Tbsf in a glass of water daily 0 12/29/2022 Active Atorvastatin Calcium 10 MG Oral Tablet (Lipitor)Indication s:Hyperlipidemia with target LDL less than 100 TAKE ONE TABLET BY MOUTH EVERY MORNING 90 Tablet 3 05/18/2023 05/17/2024 Active Additional Information Patient taking differently: Daily(Non-Specified), TAKE 1 TABLET BY MOUTH EVERY DAY IN THE MORNING, Reported on 05/22/2023 Hospital, Clinic, or Other Facility Administered Medication Ordered Dose Route Frequency Start Date End Date Status Iron Sucrose (Venofer) 200 mg in NSS 100 mL ivpbIndications:Iron deficiency anemia, unspecified iron deficiency anemia type 200 mg IVPB QWEEK 01/02/2024 01/30/2024 Active Iron Sucrose (Venofer) 200 mg in NSS 100 mL ivpbIndications:Iron deficiency anemia, unspecified iron deficiency anemia type 200 mg IVPB QMONTH 01/31/2024 05/29/2024 Active documented as of this encounter (statuses as of 01/20/2024) Active Problems Problem Noted Date Diagnosed Date Anemia 01/04/2024 Iron deficiency anemia 07/02/2023 Hyperlipidemia with target LDL less than 100 04/2022 Herpes simplex virus infection 04/28/2022 BMI 31.0-31.9,adult 04/28/2022 PTSD (post-traumatic stress disorder) 04/28/2022 Eczema 04/28/2022 Adenomatous polyp of colon 04/28/2022 documented as of this encounter (statuses as of 01/20/2024) Immunizations Name Administration Dates Next Due COVID-19 mRNA, LNP-s, No Pre serve, 2-Dose Series (Moderna) 10/20/2021,03/07/2021,02/07/2021 COVID-19, MRNA-LNP, 23-24, P F, 30 MCG/0.3 mL, 12 YRS AND ABOVE, IM (PFIZER-Comirnaty) 08/21/2023 Covid-19, Mrna, Lnp-s, Pf, B ivalent, 30 Mcg, IM, 12 yrs and above (Pfizer) 11/19/2022 Hepatitis B, 20+ yrs 07/06/2023,02/04/2023,01/05 Seasonal Influenza, PF, 6 M & above, IM , (FluLaval or Fluzone) 08/21/2023,08/09/2022 documented as of this encounter Social History Tobacco Use Types Packs/Day Years Used Date Smoking Tobacco: Never Smokeless Tobacco: Never Alcohol Use Standard Drinks/Week Comments Never 0 (1 standard drink = 0.6 oz pur e alcohol) PHQ-2 Answer Date Recorded PHQ Adult Total Score 0 01/01/2024 Hunger Vital Sign Answer Date Recorded Within the past 12 months, y ou worried that your food would run out before you got the money to buy more. Never true 12/26/19 Within the past 12 months, t he food you bought just didn't last and you didn't have money to get more. Never true 12/26/2022 Sex and Gender Information Value Date Recorded Sex Assigned at Female 08/21/2022 1:37 PM EDT Gender Identity Female 08/21/2022 1:37 PM EDT Sexual Orientation Straight 08/21/2022 1: 37 PM EDT Job Start Date Occupation Industry Not on file Not on file Not on file documented as of this encounter Last Filed Vital Signs Vital Sign Reading Time Taken Comments Blood Pressure 128/80 01/20/2024 8:40 AM EST Pulse 72 01/20/2024 8:40 AM EST Temperature 36.6 C (97.9 F) 01/20/2024 8:40 AM ES T Respiratory Rate 16 01/20/2024 8:40 AM EST Oxygen Saturation 98% 01/20/2024 8:40 AM EST Inhaled Oxygen Concentration - - Weight - - Height - - Body Mass Index - - documented in this encounter Nursing Notes * Korina Larsen, RN - 01/20/2024 10:11 AM EST Goals: Patient will remain free from injury. Possible barriers to meeting goals: ambulating with IV pole Stability of the patient: Moderately stable - low risk of patient condition declining or worsening Summary regarding today's goals: Met: pt remained free of harm today Patient tolerated treatment well without any acute issues or problems. Patient left facility in stable condition and denied any further needs. * Korina Larsen RN - 01/20/2024 9:05 AM EST Chair 7. IV inserted. Patient here for 200mg Venofer infusion, tolerating well so faer, no issues or complaints. Safety and Risk for Injury Patient will remain free from injury. Ensure appropriate safety devices are available. Provide and maintain safe environment. documented in this encounter Plan of Treatment Upcoming Encounters Date Type Department Care Team (Latest Contact Info) Description 01/27/2024 8:30 AM EST Hem/Onc Treatment Hematology/Oncology Treatment, [address] [place] [phone] Corin, Chair 9 Hem Onc [facility] [address] [place] [address] [place] [address] 02/03/2024 8:30 AM EDT Hem/Onc Treatment [address]ematology/[address] [phone] Corin, Chair 11 Hem Onc [facility] [address] [place] [address] [place] [address] 03/02/2024 8:30 AM EDT Hem/Onc Treatment Hematology/Oncology Treatment, [address], [place] [address] Corin, Chair 11 Hem Onc [facility] [address] [place] [address] [place] [address] 03/25/2024 9:45 AM EDT Office Visit Dermatology [address] [place] [address] Tito Escobedo MD [address] [place] [address] 05/19/2024 7:30 AM EDT Hospital Encounter OR [facility], Operating Room, [facility] 1st Floor [address] [place] [address] Ashlyn Santo MD [address] [place] [address] 05/19/2024 7:30 AM EDT - 05/19/2024 8:45 AM EDT Surgery OR [facility], Operating Room, [facility] 1st Floor [address] [place] [address] Ashlyn Santo MD [address], [place] [phone] ANORECTAL EXAM UNDER ANESTHESIA 05/24/2024 9:00 AM EDT [facility] [address], [place] [phone] Dolly Marcos PA-C [address], [place] [phone] 07/04/2024 10:40 AM EDT Office Visit Family Practice [facility] 200 [facility] [place] [address] Karla Mckeon MD [address] [place] [address] Scheduled Procedures Name Priority Associated Diagnoses Date/Ti me ANORECTAL EXAM UNDER ANESTHESIA Hemorrhoids 05/19/2024 7:30 AM EDT HEMORRHOIDECTOMY EXTERNAL AN D INTERNAL COMPLEX Hemorrhoids 05/19/2024 7:30 AM EDT COLONOSCOPY FLEXIBLE PROXIMA L DIAGNOSTIC Recall History of colon polyps Health Maintenance Due Date Last Done Comments DTaP,Tdap,and Td Vaccines (1 - Tdap) 1996 Pap Smear 1998 Cervical Cancer Screening 2007 HPV/Co-Test 2007 Depression Screening 01/01/2025 01/01/2024 Mammogram 01/12/2025 01/12/2024, 12/24, 01/07/2023, Additional history exists Diabetes Screening 01/01/2027 01/01/2024, 0 06/29/2023, 12/27/2022 COLONOSCOPY-EVERY 5 YRS AGES 18-100 05/28/2028 05/28/2023, 05/28/2023 Lipid Panel 01/01/2029 01/01/2024, 08/0 05/2023, 12/27/2022 Colonoscopy Discontinued 05/28/2023, 05/28/2023 Colorectal Cancer Screening Discontinued Hepatitis B Completed 07/06/2023, 01/21, 01/05/2023 COVID-19 Vaccine Completed 08/21/2023, , 10/20/2021, Additional history exists Influenza Vaccine (FLU shot) Completed 08/21/2023, 08/09/2022 Cologuard Discontinued Fecal Occult Blood Test Discontinued GARDASIL-HPV IMMUNIZATION SERIES Aged Out No longer eligible based on patient's age to complete this topic MENINGOCOCCAL (MENACTRA/MENVEO) Aged Out No longer eligible based on patient's age to complete this topic Pneumococcal Vaccine: Pediatrics (0 to 5 Years) and At-Risk Patients (6 to 64 Years) Aged Out No longer eligible based on patient's age to complete this topic Sigmoidoscopy Discontinued documented as of this encounter Medical Devices Not on filedocumented as of this encounter Visit Diagnoses Diagnosis Iron deficiency anemia due to chronic blood loss- Primary Iron deficiency anemia secondary to blood loss (chronic) Iron deficiency anemia, unspecified iron deficiency anemia type Hemorrhoids Unspecified hemorrhoids without mention of complication documented in this encounter Administered Medications Active Administered Medications - up to 3 most recent administrations Medication Order MAR Action Action Date Dose Rate Site diphenhydrAMINE (Benadryl) inj 50 mg 50 mg, IV Push, ONCE PRN Other, Hypersensitivity Reaction, Starting on Thu01/20/24 at 0851, Until Teresa 01/21/24 at 0850, For 24 hours EPINEPHrine 1 MG/ML inj 0.3 mg 0.3 mg, Intramuscular, ONCE PRN Other, Hypersensitivity Reaction or Anaphylaxis, Starting on Thu01/20/24 at 0851, Until Teresa 01/21/24 at 0850, For 24 hours hEParin 100 UNIT/ML Lock Flush inj 500 Units 500 Units (5 mL), IV Lock, PRN Other, IV Flush, Starting on Thu01/20/24 at 0851, Until Teresa 01/21/24 at 0850, For 24 hours, Do not flush if lock, PICC, or central line not in place; IV infusing or unable to flush. Hydrocortisone Sod Suc (PF) (Solu-Cortef) inj 100 mg 100 mg, IV Push, ONCE PRN Other, Hypersensitivity Reaction, Starting on Thu01/20/24 at 0851, Until Teresa 01/21/24 at 0850, For 24 hours NSS infusion 500 mL, Intravenous, at 50 mL/hr, CONTINUOUS, Starting on Thu01/20/24 at 1000, Until Thu01/20/24 at 1959 Start Infusion 01/20/2024 8:51 AM EST 500 mL 50 mL/hr oxygen GAS Inhalation, OXYGEN, First dose on Thu01/20/24 at 0930, Until Discontinued, Device/Managed by: Low Flow Device, Goal SPO2 (%): 91-95, Starting Device: Nasal Cannula, Initial Flow Rate (LPM): 2, Lowest Support: Nasal Cannula: Flow 0-6 LPM. Titrate up/down by 1 LPM., Higher Support: Non-Rebreather (NRB) Mask: Minimum of 10 LPM. Titrate to maintain bag inflation., Titration Interval: Q2 minutes and as needed., Notify Provider: For sudden DECREASE in resting SPO2 to less than 85% and when escalating delivery device., Wean patient off Oxygen when the oxygen saturation is greater than or equal to 93% sodium chloride 0.9 % flush central line 10 mL 10 mL, IV Push, PRN Other, IV Flush, Starting on Thu01/20/24 at 0851, Until Teresa 01/21/24 at 0850, For 24 hours, Do not flush if lock, PICC, or central line not in place; IV infusing or unable to flush. Inactive Administered Medications - up to 3 most recent administrations Medication Order MAR Action Action Date Dose Rate Site Iron Sucrose (Venofer) 200 mg in NSS 100 mL ivpb 200 mg, IV Piggyback, ONCE, 1 dose, On Thu01/20/24 at 1030, Administer over 60 Minutes Start Infusion 01/20/2024 8:51 AM EST 200 mg 100 mL/hr documented in this encounter Care Teams Cistern Room Operator Relationship Specialty Start Date End Date Lorelei Tam MD [address] [place] [address] PCP - General Internal Medicine 12/27/22 documented as of this encounter
--- OUTSIDE RECORDS SUMMARY | 2024-02-02 06:23 | External Medical Summary | Summary of Care ---
Author Name Unknown Organization [facility] Address [address] [place] [address] Phone [phone] Care Team Providers Care Narcotics And/Or Vice Detective Name Role Phone Lorelei Tam MD Primary Care Provider [phone] Reason for Visit * Reason Comments Infusion Venofer Encounter Details Date Type Department Care Team (Latest Contact Info) Description 01/13/2024 9:15 AM EST Hem/Onc Treatment Hematology/Oncology Treatment, [address] [phone] Corin, Chair 8 Hem Onc [address] [address] Iron deficiency anemia due to chronic blood loss*; Iron deficiency anemia, unspecified iron deficiency anemia type Allergies Active Allergy Reactions Criticality Noted Date Comments Pollen 04/28/2022 documented as of this encounter (statuses as of 01/13/2024) Medications Medication Sig Dispensed Refills Start Date [...] as of this encounter (statuses as of 01/13/2024) Active Problems Problem Noted Date Diagnosed Date Anemia 01/04/2024 Iron deficiency anemia 07/02/2023 Hyperlipidemia with target LDL less than 100 04/2022 Herpes simplex virus infection 04/28/2022 BMI 31.0-31.9,adult 04/28/2022 PTSD (post-traumatic stress disorder) 04/28/2022 Eczema 04/28/2022 Adenomatous polyp of colon 04/28/2022 documented as of this encounter (statuses as of 01/13/2024) Immunizations Name Administration Dates Next Due COVID-19 mRNA, LNP-s, No Pre serve, 2-Dose Series (Moderna) 10/20/2021,03/07/2021,02/07/2021 COVID-19, MRNA-LNP, 23-24, P F, 30 MCG/0.3 mL, 12 YRS AND ABOVE, IM ([employer]-Comirnaty) 08/21/2023 Covid-19, Mrna, Lnp-s, Pf, B ivalent, [...] money to buy more. Never true 12/26/19 23 Within the past 12 months, t he [...] Sign Reading Time Taken Comments Blood Pressure 130/78 01/13/2024 9:36 AM EST Pulse 83 01/13/2024 9:36 AM EST Temperature 36.5 C (97.7 F) 01/13/2024 9:36 AM ES T Respiratory Rate 18 01/13/2024 9:36 AM EST Oxygen Saturation 100% 01/13/2024 9:36 AM EST Inhaled Oxygen Concentration - - Weight - - Height - - Body Mass Index - - documented in this encounter Nursing Notes * Rehana Wilson LPN - 01/13/2024 9:37 AM EST 0930: Chair 6. Pt arrived for Venofer infusion. PIV in LFA. Pt tolerated well. VSS. No complaints at this time. 1040: Pt tolerated Venofer infusion well. PIV removed intact. Pt to return in one week. Discharged in stable condition. documented in this encounter Plan of Treatment Upcoming Encounters Date Type Department Care Team (Latest Contact Info) Description 01/20/2024 8:30 AM EST Hem/Onc Treatment [address]ematology[address] [phone] Corin, Chair 11 Hem Onc [facility] [address] [facility] [place] [address] 01/27/2024 8:30 AM EST Hem/Onc Treatment Hematology/[address]cology [address], [address] [phone] Corin, Chair 9 [facility] [address] [place] [address] [place] [address] 02/03/2024 8:30 AM EDT Hem/Onc Treatment Hematology/Oncology Treatment, [address], [place] [phone] Corin, Chair 11 Hem [facility] [address] [place] [address] [place] [address] 03/02/2024 8:30 AM EDT Hem/Onc Treatment Hematology/Oncology [address], [address] [phone] Corin, Chair 11 Hem [facility] [address] [place] [address] [place] [address] 03/25/2024 9:45 AM EDT Office Visit Dermatology [facility] [address] [place] [address] Tito Escobedo MD [address] [place] [address] 05/19/2024 7:30 AM EDT Hospital Encounter OR [facility], Operating Room, [facility] 1st Floor [address] [place] [address] Ashlyn Santo MD [address] [place] [address] 05/19/2024 7:30 AM EDT - 05/19/2024 8:45 AM EDT Surgery OR [facility], Operating Room, [facility] 1st Floor [address] [place] [address] Ashlyn Santo MD [address] [place] [address] ANORECTAL EXAM UNDER ANESTHESIA 05/24/2024 9:00 AM EDT Office Visit General Surgery, [facility] [address] [place], [place] [phone] Dolly Marcos PA-C [address], [place] [phone] 07/04/2024 10:40 AM EDT Office Visit Family Practice [facility] 200 [facility] [place] [address] Karla Mckeon MD [address] [place] [address] Scheduled Procedures Name Priority Associated Diagnoses Date/Ti [...] ONCE PRN Other, Hypersensitivity Reaction, Starting on Thu01/13/24 at 0918, Until Teresa 01/14/24 at 0917, For 24 hours EPINEPHrine 1 MG/ML inj 0.3 mg 0.3 mg, Intramuscular, ONCE PRN Other, Hypersensitivity Reaction or Anaphylaxis, Starting on Thu01/13/24 at 0918, Until Teresa 01/14/24 at 0917, For 24 hours hEParin 100 UNIT/ML Lock Flush inj 500 Units 500 Units (5 mL), IV Lock, PRN Other, IV Flush, Starting on Thu01/13/24 at 0918, Until Teresa 01/14/24 at 0917, For 24 hours, Do not flush if lock, PICC, or central line not in place; IV infusing or unable to flush. Hydrocortisone Sod Suc (PF) (Solu-Cortef) inj 100 mg 100 mg, IV Push, ONCE PRN Other, Hypersensitivity Reaction, Starting on Thu01/13/24 at 0918, Until Thu01/14/24 at 0917, For 24 hours NSS infusion 500 mL, Intravenous, at 50 mL/hr, CONTINUOUS, Starting on Thu01/13/24 at 1030, Until Thu01/13/24 at 2028 Start Infusion 01/13/2024 9:30 AM EST 500 mL 50 mL/hr oxygen GAS Inhalation, OXYGEN, First dose on Thu01/13/24 at 1000, Until Discontinued, Device/Managed by: Low Flow Device, [...] Push, PRN Other, IV Flush, Starting on Thu01/13/24 at 0918, Until Teresa 01/14/24 at 0917, For 24 hours, Do not flush if lock, PICC, or central line not in place; IV infusing or unable to flush. Inactive Administered Medications - up to 3 most recent administrations Medication Order MAR Action Action Date Dose Rate Site Iron Sucrose (Venofer) 200 mg in NSS 100 mL ivpb 200 mg, IV Piggyback, ONCE, 1 dose, On Thu01/13/24 at 1100, Administer over 60 Minutes Start Infusion 01/13/2024 9:30 AM EST 200 mg 100 mL/hr documented in this encounter Care Teams Narcotics And/Or Vice Detective Relationship Specialty Start Date End Date Lorelei Tam MD 200 [facility] [place] [address] PCP - General Internal Medicine 12/27/22 documented as of this encounter
--- OUTSIDE RECORDS SUMMARY | 2024-02-02 06:23 | External Medical Summary | Summary of Care ---
Author Name Unknown Organization [facility] Address [address] [place] [address] Phone [phone] Care Team Providers Care Field Support Rep Name Role Phone Lorelei Tam MD Primary Care Provider [phone] Reason for Visit * Reason Onset Date Comments Appointment 01/04/2024 Venofer Encounter Details Date Type Department Care Team (Late st Contact Info) Description 01/04/2024 Telephone Hematology/Oncology [facility] [address] [facility] [place] [address] Lorelei Tam MD [address] [place] [address] Appointment (Nikia) Allergies Active Allergy Reactions Criticality Noted Date Comments Pollen 04/28/2022 documented as of this encounter (statuses as of 01/11/2024) Medications Medication Sig Dispensed Refills Start Date [...] as of this encounter (statuses as of 01/11/2024) Active Problems Problem Noted Date Diagnosed Date Anemia 01/04/2024 Iron deficiency anemia 07/02/2023 Hyperlipidemia with target LDL less than 100 04/2022 Herpes simplex virus infection 04/28/2022 BMI 31.0-31.9,adult 04/28/2022 PTSD (post-traumatic stress disorder) 04/28/2022 Eczema 04/28/2022 Adenomatous polyp of colon 04/28/2022 documented as of this encounter (statuses as of 01/11/2024) Immunizations Name Administration Dates Next Due COVID-19 mRNA, LNP-s, No Pre serve, 2-Dose Series (Moderna) 10/20/2021,03/07/2021,02/07/2021 COVID-19, MRNA-LNP, 23-24, P F, 30 MCG/0.3 mL, 12 YRS AND ABOVE, IM (PFIZER-[facility]) 08/21/2023 Covid-19, Mrna, Lnp-s, Pf, B ivalent, [...] on file documented as of this encounter Miscellaneous Notes * Telephone Encounter - Siomara Ferreira OSA - 01/11/2024 9:37 AM EST Called [employer] Lmom for patient. * Telephone Encounter - Sissy Diaz OSA - 01/08/2024 2:53 PM EST Left message for pt to call and schedule * Telephone Encounter - Harmeet Larsen RN - 01/08/2024 2:47 PM EST Scheduling- Please call patient to schedule 2 hour apt "Nikia" (Lorelei Tam MD). * Telephone Encounter - Lorelei Tam MD - 01/08/2024 1:34 PM EST Done this morning , let me know if not done correctly * Telephone Encounter - Harmeet Larsen RN - 01/08/2024 8:25 AM EST Internal Med- Please have Dr. Tam sign Miller orders for patients Venofer treatments. We are unable to schedule the patient until these are signed. Thanks. * Telephone Encounter - Stephanie Coon RN - 01/08/2024 8:09 AM EST Miller plan still not signed, TT sent to provider. * Telephone Encounter - Stephanie Coon RN - 01/06/2024 8:12 AM EST Esecure email sent to provider with beacon directions. * Telephone Encounter - Harmeet Larsen RN - 01/04/2024 3:34 PM EST Received Venofer order. Miller plan built and routed for signature. No auth required, awaiting review. Once signed and reviewed can schedule. documented in this encounter Plan of Treatment Upcoming Encounters Date Type Department Care Team (Latest Contact Info) Description 01/12/2024 10:15 AM EST Imaging Radiology [address], [address] [place] [address] 03/25/2024 9:45 AM EDT Office Visit Dermatology [facility] [address] [facility] [place] [address] Tito Escobedo MD [address] [place] [address] 05/19/2024 7:30 AM EDT Hospital Encounter OR [facility], Operating Room, [facility] 1st Floor [address] [place] [address] Ashlyn Santo MD [address] [place] [address] 05/19/2024 7:30 AM EDT - 05/19/2024 8:45 AM EDT Surgery OR [facility], Operating Room, [facility] 1st Floor [address] [place] [address] Ashlyn Santo MD [address] [place] [address] ANORECTAL EXAM UNDER ANESTHESIA 05/24/2024 9:00 AM EDT [facility] [address] [place], [place] [phone] Dolly Marcos PA-C [address] [place], [place] [phone] 07/04/2024 10:40 AM EDT Office Visit Family Practice [facility] [address] [facility] [place] [address] Karla Mckeon MD [address] [facility] [place] [address] Scheduled Procedures Name Priority Associated Diagnoses Date/Ti me ANORECTAL EXAM UNDER ANESTHESIA Hemorrhoids 05/19/2024 7:30 AM EDT HEMORRHOIDECTOMY EXTERNAL AN D INTERNAL COMPLEX Hemorrhoids 05/19/2024 7:30 AM EDT COLONOSCOPY FLEXIBLE PROXIMA L DIAGNOSTIC Recall History of colon polyps Health Maintenance Due Date Last Done Comments DTaP,Tdap,and Td Vaccines (1 - Tdap) 1996 Pap Smear 1998 Cervical Cancer Screening 2007 HPV/Co-Test 2007 Mammogram 01/07/2024 01/07/2023, 12/24, 01/02/2023 Depression Screening 01/01/2025 01/01/2024 Diabetes Screening 01/01/2027 01/01/2024, 0 06/29/2023, 12/27/2022 COLONOSCOPY-EVERY 5 YRS AGES 18-100 05/28/2028 05/28/2023, 05/28/2023 Lipid Panel 01/01/2029 01/01/2024, 08/05/2023, 12/27/2022 Colonoscopy Discontinued 05/28/2023, 05/28/2023 Colorectal Cancer [...] Not on filedocumented as of this encounter Care Teams Field Support Rep Relationship Specialty Start Date End Date Lorelei Tam MD 200 [facility] [place] [address] PCP - General Internal Medicine 12/27/22 documented as of this encounter
--- OUTSIDE RECORDS SUMMARY | 2024-02-02 06:23 | External Medical Summary | Summary of Care ---
Author Name Unknown Organization [facility] Address [address] [place] [address] Phone [phone] Care Team Providers Care Newspaper Columnist Name Role Phone Lorelei Tam MD Primary Care Provider [phone] Reason for Visit * Reason Comments Infusion Venofer 3/ Encounter Details Date Type Department Care Team (Latest Contact Info) Description 01/27/2024 8:30 AM EST Hem/Onc Treatment Hematology/Oncology Treatment, [address] [phone] Corin, Chair 9 Hem On[address] [address] Iron deficiency anemia due to chronic blood loss*; Iron deficiency anemia, unspecified iron deficiency anemia type Allergies Active Allergy Reactions Criticality Noted Date Comments Pollen 04/28/2022 documented as of this encounter (statuses as of 01/27/2024) Medications Medication Sig Dispensed Refills Start Date [...] as of this encounter (statuses as of 01/27/2024) Active Problems Problem Noted Date Diagnosed Date Anemia 01/04/2024 Iron deficiency anemia 07/02/2023 Hyperlipidemia with target LDL less than 100 04/2022 Herpes simplex virus infection 04/28/2022 BMI 31.0-31.9,adult 04/28/2022 PTSD (post-traumatic stress disorder) 04/28/2022 Eczema 04/28/2022 Adenomatous polyp of colon 04/28/2022 documented as of this encounter (statuses as of 01/27/2024) Immunizations Name Administration Dates Next Due COVID-19 mRNA, LNP-s, No Pre serve, 2-Dose Series (Moderna) 10/20/2021,03/07/2021,02/07/2021 COVID-19, MRNA-LNP, 23-24, P F, 30 MCG/0.3 mL, 12 YRS AND ABOVE, IM ([facility] 08/21/2023 Covid-19, Mrna, Lnp-s, Pf, B ivalent, [...] Sign Reading Time Taken Comments Blood Pressure 127/86 01/27/2024 11:09 AM EST Pulse 77 01/27/2024 11:09 AM EST Temperature 36.5 C (97.7 F) 01/27/2024 11:[address] Respiratory Rate 18 01/27/2024 11:09 AM EST Oxygen Saturation 97% 01/27/2024 11:09 AM EST Inhaled Oxygen Concentration - - Weight - - Height - - Body Mass Index - - documented in this encounter Nursing Notes * Rehana Wilson LPN - 01/27/2024 11:09 AM EST 0850: Pt arrived for Venofer 3/4 infusion. PIV in L metacarpal. Pt tolerated well. VSS. No complaints at this time. 1000: Pt tolerated Venofer infusion well. PIV removed intact. Pt to return in one week. Discharged in stable condition. documented in this encounter Plan of Treatment Upcoming Encounters Date Type Department Care Team (Latest Contact Info) Description 02/03/2024 8:30 AM EDT Hem/Onc Treatment Hematology/Oncology Treatment[address] [phone] Corin, Chair 11 Hem Onc [address] [place] [address] 03/02/2024 8:30 AM EDT Hem/Onc Treatment Hematology/Oncology Treatment[address] [phone] Corin, Chair 11 Hem Onc [address] [place] [address] 03/25/2024 9:45 AM EDT Office Visit Dermatology [address] [address] Tito Escobedo MD [address] [place] [id number] 05/19/2024 7:30 AM EDT Hospital Encounter OR [facility], Operating Room, [facility] 1st [address] [place] [address] Ashlyn Santo MD [address] [place] [address] 05/19/2024 7:30 AM EDT - 05/19/2024 8:45 AM EDT Surgery OR [facility], Operating Room, [facility] 1st [address] [place] [address] Ashlyn Santo MD [address] [place] [address] ANORECTAL EXAM UNDER ANESTHESIA 05/24/2024 9:00 AM EDT Office Visit General Surgery, [place] [address] [place] [address] Dolly Marcos PA-C [address] [place] [address] 07/04/2024 10:40 AM EDT Office Visit Family Practice [facility] 200 [facility] [place] [address] Karla Mckeon MD 200 [facility] [place] [address] Scheduled Procedures Name Priority Associated Diagnoses Date/Ti [...] ONCE PRN Other, Hypersensitivity Reaction, Starting on Thu01/27/24 at 0835, Until Teresa 01/28/24 at 0834, For 24 hours EPINEPHrine 1 MG/ML inj 0.3 mg 0.3 mg, Intramuscular, ONCE PRN Other, Hypersensitivity Reaction or Anaphylaxis, Starting on Thu01/27/24 at 0835, Until Teresa 01/28/24 at 0834, For 24 hours hEParin 100 UNIT/ML Lock Flush inj 500 Units 500 Units (5 mL), IV Lock, PRN Other, IV Flush, Starting on Thu01/27/24 at 0835, Until Teresa 01/28/24 at 0834, For 24 hours, Do not flush if lock, PICC, or central line not in place; IV infusing or unable to flush. Hydrocortisone Sod Suc (PF) (Solu-Cortef) inj 100 mg 100 mg, IV Push, ONCE PRN Other, Hypersensitivity Reaction, Starting on Thu01/27/24 at 0835, Until Teresa 01/28/24 at 0834, For 24 hours NSS infusion 500 mL, Intravenous, at 50 mL/hr, CONTINUOUS, Starting on Thu01/27/24 at 0945, Until Thu01/27/24 at 1944 Start Infusion 01/27/2024 8:54 AM EST 500 mL 50 mL/hr oxygen GAS Inhalation, OXYGEN, First dose on Thu01/27/24 at 0915, Until Discontinued, Device/Managed by: Low Flow Device, [...] Push, PRN Other, IV Flush, Starting on Thu01/27/24 at 0835, Until Teresa 01/28/24 at 0834, For 24 hours, Do not flush if lock, PICC, or central line not in place; IV infusing or unable to flush. Inactive Administered Medications - up to 3 most recent administrations Medication Order MAR Action Action Date Dose Rate Site Iron Sucrose (Venofer) 200 mg in NSS 100 mL ivpb 200 mg, IV Piggyback, ONCE, 1 dose, On Thu01/27/24 at 1015, Administer over 60 Minutes Start Infusion 01/27/2024 8:54 AM EST 200 mg 100 mL/hr documented in this encounter Care Teams Newspaper Columnist Relationship Specialty Start Date End Date Lorelei Tam MD 200 [facility] [place] [address] PCP - General Internal Medicine 12/27/22 documented as of this encounter
--- OUTSIDE RECORDS SUMMARY | 2024-02-02 06:23 | External Medical Summary | Summary of Care ---
Author Name Unknown Organization [facility] Address [address] [place] [address] Phone [phone] Care Team Providers Care Event Specialist Name Role Phone Lorelei Tam MD Primary Care Provider [phone] Reason for Visit * Reason Onset Date Comments Allergy Injection 01/15/2024 Encounter Details Date Type Department Care Team (Late st Contact Info) Description 01/15/2024 11:45 AM EST Immunization/I njection Allergy/Immunology [facility] [address] [place] [address] Corin, Nurse Allergy [facility] 200 [place] [address] Allergic rhinitis, unspecified seasonality, unspecified trigger* Allergies Active Allergy Reactions Criticality Noted Date Comments Pollen 04/28/2022 documented as of this encounter (statuses as of 01/15/2024) Medications Medication Sig Dispensed Refills Start Date [...] as of this encounter (statuses as of 01/15/2024) Active Problems Problem Noted Date Diagnosed Date Anemia 01/04/2024 Iron deficiency anemia 07/02/2023 Hyperlipidemia with target LDL less than 100 04/2022 Herpes simplex virus infection 04/28/2022 BMI 31.0-31.9,adult 04/28/2022 PTSD (post-traumatic stress disorder) 04/28/2022 Eczema 04/28/2022 Adenomatous polyp of colon 04/28/2022 documented as of this encounter (statuses as of 01/15/2024) Immunizations Name Administration Dates Next Due COVID-19 mRNA, LNP-s, No Pre serve, 2-Dose Series (Moderna) 10/20/2021,03/07/2021,02/07/2021 COVID-19, MRNA-LNP, 23-24, P F, 30 MCG/0.3 mL, 12 YRS AND ABOVE, IM [facility] 08/21/2023 Covid-19, Mrna, Lnp-s, Pf, B ivalent, [...] on file documented as of this encounter Progress Notes * Heiek Serrano, SPECIAL AGENT [employer] - 01/15/2024 11:46 AM EST Pre-injection Questionnaire Patient identified by stating name and birthdate: Yes 1. Antihistamines taken prior to injection? yes (If no, may offer the patient Benadryl at 0.5mg/kg rounded to nearest 12.5mg) 2. Have you had increased asthma symptoms (chest tightness, wheezing, coughing, shortness of breath) in the past week? No 3. Have you had allergy symptoms,a cold, respiratory tract infection,fever or flu-like symptoms in the past week? No 4. Did you have any increased allergy or asthma symptoms, hives, generalized itching within 12 hours of receiving your last injection or swelling that persisted in the next day? No 5. Are you on any new medications or eye drops? No 6. Are you or have been diagnosed with a new medical condition? No Today's peak flow - There were no vitals taken for this visit. *Allergy Injection documentation located in Allergy Injections CPSL Flowsheet* documented in this encounter Plan of Treatment Upcoming Encounters Date Type Department Care Team (Latest Contact Info) Description 01/20/2024 8:30 AM EST Hem/Onc Treatment Hematology/Oncology Treatment, [address], [place] [phone] Corin, Chair 11 Hem Onc [facility] [address] [place] [address] [place] [address] 01/27/2024 8:30 AM EST Hem/Onc Treatment Hematology/Oncology Treatment, [address], [place] [address] Corin, Chair 9 Hem Onc [facility] [address] [place] [address] [place] [address] 02/03/2024 8:30 AM EDT Hem/Onc Treatment Hematology/Oncology Treatment, [address], [place] [address] Corin, Chair 11 Hem Onc [facility] [address] [place] [address] [place], [place] [address] 03/02/2024 8:30 AM EDT Hem/Onc Treatment Hematology/Oncology Treatment, [address], [place] [address] Corin, Chair 11 Hem Onc [facility] 200 [facility] [place], [place] [address] 03/25/2024 9:45 AM EDT Office Visit Dermatology [facility] [address] [place] [address] Tito Escobedo MD [address] [place] [address] 05/19/2024 7:30 AM EDT Hospital Encounter OR [facility], Operating Room, [facility] 1st Floor [address] [place] [address] Ashlyn Santo MD [address] [place] [address] 05/19/2024 7:30 AM EDT - 05/19/2024 8:45 AM EDT Surgery OR [facility], Operating Room, [facility] 1st Floor [address] [place] [address] Ashlyn Santo MD [address] [place], [place] [phone] ANORECTAL EXAM UNDER ANESTHESIA 05/24/2024 9:00 AM EDT [facility] [address] [place] [address] Dolly Marcos, TANGELA [address] [place], [place] [phone] 07/04/2024 10:40 AM EDT Office Visit [facility] 200 [facility] [place] [address] Karla Mckeon MD 200 [place] [address] Scheduled Procedures Name Priority Associated Diagnoses Date/Ti [...] as of this encounter Visit Diagnoses Diagnosis Allergic rhinitis, unspecified seasonality, unspecified trigger- Primary Hemorrhoids Unspecified hemorrhoids without mention of complication documented in this encounter Care Teams Event Specialist Relationship Specialty Start Date End Date Lorelei Tam MD 200 [place] [address] PCP - General Internal Medicine 12/27/22 documented as of this encounter
--- OUTSIDE RECORDS SUMMARY | 2024-02-02 06:23 | External Medical Summary | Summary of Care ---
Author Name Unknown Organization [facility] Address [address] [place] [address] Phone [phone] Care Team Providers Care Grinder And Honer Operator Automatic Name Role Phone Lorelei Tam MD Primary Care Provider [phone] Reason for Visit * Reason Onset Date Comments Appointment 01/04/2024 Venofer Encounter Details Date Type Department Care Team (Late st Contact Info) Description 01/04/2024 Telephone Hematology/Oncology [facility] [address] [place] [address] Lorelei Tam MD [address] [place] [address] Appointment (Nikia) Allergies Active Allergy Reactions Criticality [...] MCG/0.3 mL, 12 YRS AND ABOVE, IM ([facility]) 08/21/2023 Covid-19, Mrna, Lnp-s, Pf, B ivalent, [...] Encounter - Siomara Ferreira OSA - 01/11/2024 1:53 PM EST Patient called into the office and scheduled venofer for 01/13/24. * Telephone Encounter - Siomara Ferreira OSA - 01/11/2024 9:37 AM EST Called X2. Lmom for patient. * Telephone Encounter - Sissy Diaz OSA - 01/08/2024 2:53 PM EST Left message for pt to call and schedule * Telephone Encounter - Harmeet Larsen RN - 01/08/2024 2:47 PM EST Scheduling- Please call patient to schedule 2 hour apt "Venofer" (Lorelei Tam MD). * Telephone Encounter - Lorelei Tam MD - 01/08/2024 1:34 PM EST Done this morning , let me know if not done correctly * Telephone Encounter - Harmeet Larsen RN - 01/08/2024 8:25 AM EST Internal Med- Please have Dr. Tam sign [place] orders for patients Venofer treatments. We are unable to schedule the patient until these are signed. Thanks. * Telephone Encounter - Stephanie Coon RN - 01/08/2024 8:09 AM EST [place] plan still not signed, TT sent to provider. * Telephone Encounter - Stephanie Coon RN - 01/06/2024 8:12 AM EST Esecure email sent to provider with beacon directions. * Telephone Encounter - Harmeet Larsen RN - 01/04/2024 3:34 PM EST Received Venofer order. [place] plan built and routed for signature. No auth required, awaiting review. Once signed and reviewed can schedule. documented in this encounter Plan of Treatment Upcoming Encounters Date Type Department Care Team (Latest Contact Info) Description 01/12/2024 10:15 AM EST Imaging Radiology [facility]st [facility] [address] [place] [address] 01/13/2024 9:15 AM EST Hem/Onc Treatment Hematology/Oncology Treatment, [place] [address] [place] [phone] Corin, Chair 8 Hem Onc [facility] 200 [facility] [place] [address] 03/25/2024 9:45 AM EDT Office Visit Dermatology [address] [place] [address] Tito Escobedo MD [address] [place] [phone] 05/19/2024 7:30 AM EDT Hospital Encounter OR [facility], Operating Room, [address] [place] [address] Ashlyn Santo MD [address], [place] [phone] 05/19/2024 7:30 AM EDT - 05/19/2024 8:45 AM EDT Surgery OR [facility], Operating Room, [address] [place] [address] Ashlyn Santo MD [address], [place] [phone] ANORECTAL EXAM UNDER ANESTHESIA 05/24/2024 9:00 AM EDT [facility] [address] [facility] [place] [phone] Dolly Marcos PA-C [address] [place], [place] [phone] 07/04/2024 10:40 AM EDT Office Visit Family Practice [facility] [address] [place] [address] Karla Mckeon MD [address] [place] [address] Scheduled Procedures Name Priority Associated Diagnoses Date/Ti [...] filedocumented as of this encounter Care Teams Grinder And Honer Operator Automatic Relationship Specialty Start Date End Date Lorelei Tam MD [address] [place] [address] PCP - General Internal Medicine 12/27/22 documented as of this encounter
--- OUTSIDE RECORDS SUMMARY | 2024-02-02 06:24 | External Medical Summary | Summary of Care ---
Author Name Unknown Organization [facility] Address [address] [place] [address] Phone [phone] Care Team Providers Care Labview Programmer Name Role Phone Lorelei Tam MD Primary Care Provider [phone] Reason for Visit * Reason Onset Date Comments Appointment 01/04/2024 Venofer Encounter Details Date Type Department Care Team (Late st Contact Info) Description 01/04/2024 Telephone Hematology/Oncology [facility] 200 [facility] [place] [address] Lorelei Tam MD [address] [place] [address] Appointment (Nikia) Allergies Active Allergy Reactions Criticality Noted Date Comments Pollen 04/28/2022 documented as of this encounter (statuses as of 01/08/2024) Medications Medication Sig Dispensed Refills Start Date [...] as of this encounter (statuses as of 01/08/2024) Active Problems Problem Noted Date Diagnosed Date Anemia 01/04/2024 Iron deficiency anemia 07/02/2023 Hyperlipidemia with target LDL less than 100 04/2022 Herpes simplex virus infection 04/28/2022 BMI 31.0-31.9,adult 04/28/2022 PTSD (post-traumatic stress disorder) 04/28/2022 Eczema 04/28/2022 Adenomatous polyp of colon 04/28/2022 documented as of this encounter (statuses as of 01/08/2024) Immunizations Name Administration Dates Next Due COVID-19 mRNA, LNP-s, No Pre serve, 2-Dose Series (Moderna) 10/20/2021,03/07/2021,02/07/2021 COVID-19, MRNA-LNP, 23-24, P F, 30 MCG/0.3 mL, 12 YRS AND ABOVE, IM ([facility]) 08/21/2023 Covid-19, Mrna, Lnp-s, Pf, B ivalent, [...] encounter Miscellaneous Notes * Telephone Encounter - Harmeet Larsen RN - 01/08/2024 8:25 AM EST Internal Med- Please have Dr. Tam sign [place] orders for patients Venofer treatments. We are unable to schedule the patient until these are signed. Thanks. * Telephone Encounter - Stephanie Coon RN - 01/08/2024 8:09 AM EST [place] plan still not signed, TT sent to provider. * Telephone Encounter - Stephanie Coon RN - 01/06/2024 8:12 AM EST Esecure email sent to provider with beacon directions. * Telephone Encounter - Harmeet Larsen RN - 01/04/2024 3:34 PM EST Received Venofer order. [place] plan built and routed for signature. No auth required, awaiting review. Once signed and reviewed can schedule. documented in this encounter Plan of Treatment Upcoming Encounters Date Type Department Care Team (Latest Contact Info) Description 01/12/2024 10:15 AM EST Imaging Radiology [address] [place] [address] 03/25/2024 9:45 AM EDT Office Visit Dermatology [facility] 200 [place] [address] Tito Escobedo MD [address] [place] [phone] 05/19/2024 7:30 AM EDT Hospital Encounter OR [facility], Operating Room, [address] [place] [address] Ashlyn Santo MD [address] [place], [place] [phone] 05/19/2024 7:30 AM EDT - 05/19/2024 8:45 AM EDT Surgery OR [facility], Operating Room, [address] [place] [address] Ashlyn Santo MD [address] [place], [place] [phone] ANORECTAL EXAM UNDER ANESTHESIA 05/24/2024 9:00 AM EDT [facility] [address] [place], [place] [phone] SauerDolly dejesus PA-C [address] [place] [address] 07/04/2024 10:40 AM EDT Office Visit Family Practice [facility] Corin [place] 200 [facility] [place] [address] Karla Mckeon MD 200 [facility] [place] [address] Scheduled Procedures Name Priority Associated Diagnoses Date/Ti [...] filedocumented as of this encounter Care Teams Labview Programmer Relationship Specialty Start Date End Date Lorelei Tam MD 200 [facility] [place] [address] PCP - General Internal Medicine 12/27/22 documented as of this encounter
--- OUTSIDE RECORDS SUMMARY | 2024-02-02 06:24 | External Medical Summary | Summary of Care ---
Author Name Unknown Organization [facility] Address [address] [place] [address] Phone [phone] Care Team Providers Care Mathematics Technician Name Role Phone Lorelei Tam MD Primary Care Provider [phone] Reason for Visit * Reason Onset Date Comments Appointment 01/04/2024 Venofer Encounter Details Date Type Department Care Team (Late st Contact Info) Description 01/04/2024 Telephone Hematology/Oncology [facility] 200 [facility] [place] [address] Lorelei Tam MD [address] [place] [address] Appointment (Nikia) Allergies Active Allergy Reactions Criticality [...] MCG/0.3 mL, 12 YRS AND ABOVE, IM ([facility]) 08/21/2023 Covid-19, Mrna, Lnp-s, Pf, B ivalent, [...] Internal Med- Please have Dr. Tam sign [place] orders for patients Venofer treatments. We are unable to schedule the patient until these are signed. Thanks. * Telephone Encounter - Stephanie Coon RN - 01/08/2024 8:09 AM EST [place] plan still not signed, TT sent to provider. * Telephone Encounter - Stephanie Coon RN - 01/06/2024 8:12 AM EST Esecure email sent to provider with beacon directions. * Telephone Encounter - Harmeet Larsen RN - 01/04/2024 3:34 PM EST Received Venofer order. [place] plan built and routed for signature. No auth required, awaiting review. Once signed and reviewed can schedule. documented in this encounter Plan of Treatment Upcoming Encounters Date Type Department Care Team (Latest Contact Info) Description 01/12/2024 10:15 AM EST Imaging Radiology [address] [place] [address] 03/25/2024 9:45 AM EDT Office Visit Dermatology [facility] 200 [place] [address] Tito Escobedo MD [address] [place] [phone] 05/19/2024 7:30 AM EDT Hospital Encounter OR [facility], Operating Room, [address] [place] [address] Ashlyn Santo MD [address] [place], [place] [phone] 05/19/2024 7:30 AM EDT - 05/19/2024 8:45 AM EDT Surgery OR [facility], Operating Room, [address] [place] [address] Ashlyn Santo MD [address] [place], [place] [phone] ANORECTAL EXAM UNDER ANESTHESIA 05/24/2024 9:00 AM EDT [facility] [address] [place], [place] [phone] SauerDolly dejesus PA-C [address] [place] [address] 07/04/2024 10:40 AM EDT Office Visit Family Practice [facility] Corin [place] 200 [facility] [place] [address] Karla Mckeon MD 200 [facility] [place] [address] Scheduled Procedures Name Priority Associated Diagnoses Date/Ti [...] filedocumented as of this encounter Care Teams Mathematics Technician Relationship Specialty Start Date End Date Lorelei Tam MD 200 [facility] [place] [address] PCP - General Internal Medicine 12/27/22 documented as of this encounter
--- OUTSIDE RECORDS SUMMARY | 2024-02-02 06:24 | External Medical Summary | Summary of Care ---
Author Name Unknown Organization [facility] Address [address] [place] [address] Phone [phone] Care Team Providers Care Construction Skills Teacher Name Role Phone Lorelei Tam MD Primary Care Provider [phone] Reason for Visit * Reason Onset Date Comments Appointment 01/04/2024 Venofer Encounter Details Date Type Department Care Team (Late st Contact Info) Description 01/04/2024 Telephone Hematology/Oncology [facility] 200 [place] [address] Lorelei Tam MD [address] [place] [address] Appointment (Nikia) Allergies Active Allergy Reactions Criticality [...] MCG/0.3 mL, 12 YRS AND ABOVE, IM (PFIZER-[facility]) 08/21/2023 Covid-19, Mrna, Lnp-s, Pf, B [...] encounter Miscellaneous Notes * Telephone Encounter - Stephanie Coon RN - 01/08/2024 8:09 AM EST [place] plan still not signed, TT sent to provider. * Telephone Encounter - Stephanie Coon RN - 01/06/2024 8:12 AM EST Esecure email sent to provider with beacon directions. * Telephone Encounter - Harmeet Larsen RN - 01/04/2024 3:34 PM EST Received Venofer order. [place] plan built and routed for signature. No auth required, awaiting review. Once signed and reviewed can schedule. documented in this encounter Plan of Treatment Upcoming Encounters Date Type Department Care Team (Latest Contact Info) Description 01/12/2024 10:15 AM EST Imaging Radiology [address] 132 [facility] [place] [address] 03/25/2024 9:45 AM EDT Office Visit Dermatology [facility] 200 [facility] [place] [address] Tito Escobedo MD [address] [place] [address] [id number] 05/19/2024 7:30 AM EDT Hospital Encounter OR [facility], Operating Room, [address] [address] Ashlyn Santo MD [address] [place], [place] [phone] 05/19/2024 7:30 AM EDT - 05/19/2024 8:45 AM EDT Surgery OR [facility], Operating Room, [address] [place] [address] Ashlyn Santo MD [address] [place], [place] [phone] ANORECTAL EXAM UNDER ANESTHESIA 05/24/2024 9:00 AM EDT [facility] [address] [place], [place] [phone] Dolly Marcos PA-C [address] [place], [place] [address] 07/04/2024 10:40 AM EDT Office Visit Family Practice [facility] [address] [facility] [place] [address] Karla Mckeon MD [address] [facility] [place] [address] Scheduled Procedures Name Priority Associated Diagnoses Date/Ti [...] filedocumented as of this encounter Care Teams Construction Skills Teacher Relationship Specialty Start Date End Date Lorelei Tam MD 200 [place] [address] PCP - General Internal Medicine 12/27/22 documented as of this encounter
--- OUTSIDE RECORDS SUMMARY | 2024-02-02 06:24 | External Medical Summary | Summary of Care ---
Author Name Unknown Organization [facility] Address [address] [place] [address] Phone [phone] Care Team Providers Care Calibration Tester Name Role Phone Lorelei Tam MD Primary Care Provider [phone] Reason for Visit * Reason Onset Date Comments Appointment 01/04/2024 Venofer Encounter Details Date Type Department Care Team (Late st Contact Info) Description 01/04/2024 Telephone Hematology/Oncology [facility] 200 [facility] [place] [address] Lorelei Tam MD [address] [place] [address] Appointment (Nikia) Allergies Active Allergy Reactions Criticality Noted Date Comments Pollen 04/28/2022 documented as of this encounter (statuses as of 01/07/2024) Medications Medication Sig Dispensed Refills Start Date [...] as of this encounter (statuses as of 01/07/2024) Active Problems Problem Noted Date Diagnosed Date Anemia 01/04/2024 Iron deficiency anemia 07/02/2023 Hyperlipidemia with target LDL less than 100 04/2022 Herpes simplex virus infection 04/28/2022 BMI 31.0-31.9,adult 04/28/2022 PTSD (post-traumatic stress disorder) 04/28/2022 Eczema 04/28/2022 Adenomatous polyp of colon 04/28/2022 documented as of this encounter (statuses as of 01/07/2024) Immunizations Name Administration Dates Next Due COVID-19 mRNA, LNP-s, No Pre serve, 2-Dose Series (Moderna) 10/20/2021,03/07/2021,02/07/2021 COVID-19, MRNA-LNP, 23-24, P F, 30 MCG/0.3 mL, 12 YRS AND ABOVE, IM ([facility]ER-[facility]) 08/21/2023 Covid-19, Mrna, Lnp-s, Pf, B [...] 01/04/2024 3:34 PM EST Received Venofer order. [place] plan built and routed for signature. No auth required, awaiting review. Once signed and reviewed can schedule. documented in this encounter Plan of Treatment Upcoming Encounters Date Type Department Care Team (Latest Contact Info) Description 01/12/2024 10:15 AM EST Imaging Radiology [address] [facility] [place] [address] 01/21/2024 1:00 PM EST Office Visit General Internal Medicine [facility] [address] [place] [address] Lorelei Tam MD [address] [place] [address] 03/25/2024 9:45 AM EDT Office Visit Dermatology [facility] [address] [place] [address] Tito Escobedo MD [address] [place] [address] [id number] 05/19/2024 7:30 AM EDT Hospital Encounter OR [facility], Operating Room, [address] 1020 [place] [address] Ashlyn Santo MD [address] [place], [place] [phone] 05/19/2024 7:30 AM EDT - 05/19/2024 8:45 AM EDT Surgery OR [facility], Operating Room, [address] 10[address] [place] [address] Ashlyn Santo MD [address] [place], [place] [phone] ANORECTAL EXAM UNDER ANESTHESIA 05/24/2024 9:00 AM EDT Office Visit General [facility] [address] [place], [place] [phone] Dolly Marcos PA-C [address] [place] [address] 07/04/2024 10:40 AM EDT Office Visit Family Practice [facility] [address] [place] [address] Karla Mckeon MD [address] [place] [address] Scheduled Procedures Name Priority Associated Diagnoses Date/Ti [...] filedocumented as of this encounter Care Teams Calibration Tester Relationship Specialty Start Date End Date Lorelei Tam MD 200 [facility] [place] [address] PCP - General Internal Medicine 12/27/22 documented as of this encounter
--- OUTSIDE RECORDS SUMMARY | 2024-02-02 06:24 | External Medical Summary | Summary of Care ---
Author Name Unknown Organization [facility] Address [address] [place] [address] Phone [phone] Care Team Providers Care Regional Tanker Truck Driver Name Role Phone Lorelei Tam MD Primary Care Provider [phone] Reason for Visit * Reason Onset Date Comments Appointment 01/04/2024 Venofer Encounter Details Date Type Department Care Team (Late st Contact Info) Description 01/04/2024 Telephone Hematology/Oncology [facility] 200 [facility] [place] [address] Lorelei Tam MD [address] [place] [address] Appointment (Nikia) Allergies Active Allergy Reactions Criticality [...] MCG/0.3 mL, 12 YRS AND ABOVE, IM ([facility]ZER-[facility]) 08/21/2023 Covid-19, Mrna, Lnp-s, Pf, B [...] Internal Med- Please have Dr. Tam sign [place] orders for patients Venofer treatments. We are unable to schedule the patient until these are signed. Thanks. * Telephone Encounter - Stephanie Coon RN - 01/08/2024 8:09 AM EST [place] plan still not signed, TT sent to provider. * Telephone Encounter - Stephanie Coon RN - 01/06/2024 8:12 AM EST Esecure email sent to provider with beacon directions. * Telephone Encounter - Harmeet Larsen RN - 01/04/2024 3:34 PM EST Received Venofer order. [place] plan built and routed for signature. No auth required, awaiting review. Once signed and reviewed can schedule. documented in this encounter Plan of Treatment Upcoming Encounters Date Type Department Care Team (Latest Contact Info) Description 01/12/2024 10:15 AM EST Imaging Radiology [address] 132 [place] [address] 03/25/2024 9:45 AM EDT Office Visit Dermatology [facility] 200 [place] [address] Tito Escobedo MD [address] [place] [address] [id number] 05/19/2024 7:30 AM EDT Hospital Encounter OR [facility], Operating Room, [address] 1020 [place] [address] Ashlyn Santo MD [address] [place], [place] [phone] 05/19/2024 7:30 AM EDT - 05/19/2024 8:45 AM EDT Surgery OR [facility], Operating Room, [address] 1020 [place] [address] Ashlyn Santo MD [address] [place], [place] [phone] ANORECTAL EXAM UNDER ANESTHESIA 05/24/2024 9:00 AM EDT [facility] [address] [place], [place] [phone] SauerDolly dejesus PA-C [address] [place] [address] 07/04/2024 10:40 AM EDT Office Visit Family Practice [facility] [place] 200 [facility] [place] [address] Karla Mckeon MD 200 [facility] [place] [address] Scheduled Procedures Name Priority Associated Diagnoses Date/Ti [...] filedocumented as of this encounter Care Teams Regional Tanker Truck Driver Relationship Specialty Start Date End Date Lorelei Tam MD 200 [facility] [place] [address] PCP - General Internal Medicine 12/27/22 documented as of this encounter
--- OUTSIDE RECORDS SUMMARY | 2024-02-02 06:24 | External Medical Summary | Summary of Care ---
Author Name Unknown Organization [facility] Address [address] [place] [address] Phone [phone] Care Team Providers Care Primer Charger Name Role Phone Lorelei Tam MD Primary Care Provider [phone] Encounter Details Date Type Department Care Team (Late st Contact Info) Description 01/05/2024 Orders Only Hematology/Oncology [facility] 200 [facility] [address] Lorelei Tam MD 200 [place] [address] Allergies Active Allergy Reactions Criticality Noted Date Comments Pollen 04/28/2022 documented as of this encounter (statuses as of 01/05/2024) Medications Medication Sig Dispensed Refills Start Date [...] as of this encounter (statuses as of 01/05/2024) Active Problems Problem Noted Date Diagnosed Date Anemia 01/04/2024 Iron deficiency anemia 07/02/2023 Hyperlipidemia with target LDL less than 100 04/2022 Herpes simplex virus infection 04/28/2022 BMI 31.0-31.9,adult 04/28/2022 PTSD (post-traumatic stress disorder) 04/28/2022 Eczema 04/28/2022 Adenomatous polyp of colon 04/28/2022 documented as of this encounter (statuses as of 01/05/2024) Immunizations Name Administration Dates Next Due COVID-19 mRNA, LNP-s, No Pre serve, 2-Dose Series (Moderna) 10/20/2021,03/07/2021,02/07/2021 COVID-19, MRNA-LNP, 23-24, P F, 30 MCG/0.3 mL, 12 YRS AND ABOVE, IM ([facility]) 08/21/2023 Covid-19, Mrna, Lnp-s, Pf, B [...] on file documented as of this encounter Plan of Treatment Upcoming Encounters Date Type Department Care Team (Latest Contact Info) Description 01/12/2024 10:15 AM EST Imaging Radiology [address] [address] 01/21/2024 1:00 PM EST Office Visit General Internal Medicine [facility] [address] [place] [address] Lorelei Tam MD [address] [place] [address] 03/25/2024 9:45 AM EDT Office Visit Dermatology [facility] [address] [place] [address] Tito Escobedo MD [address] [place] [address] 05/19/2024 7:30 AM EDT Hospital Encounter [facility], Operating Room, [facility] 1st Floor 1020 [place] [address] Ashlyn Santo MD [address] [place], [place] [phone] 05/19/2024 7:30 AM EDT - 05/19/2024 8:45 AM EDT Surgery [facility], Operating Room, [facility] 1st Floor 1020 [place] [address] Ashlyn Santo MD [address] [place], [place] [phone] ANORECTAL EXAM UNDER ANESTHESIA 05/24/2024 9:00 AM EDT Office Visit General Surgery, [place] [address] [place] [address] Dolly Marcos PA-C [address] [place], [place] [phone] 07/04/2024 10:40 AM EDT Office Visit Family Practice [facility] 200 [facility] [address] Karla Mckeon MD 200 [place] [address] Scheduled Procedures Name Priority Associated Diagnoses Date/Ti [...] filedocumented as of this encounter Care Teams Primer Charger Relationship Specialty Start Date End Date Lorelei Tam MD 200 [place] [address] PCP - General Internal Medicine 12/27/22 documented as of this encounter
--- OUTSIDE RECORDS SUMMARY | 2024-02-02 06:24 | External Medical Summary | Summary of Care ---
Author Name Unknown Organization [facility] Address [address] [place] [address] Phone [phone] Care Team Providers Care Hand Sprayer Name Role Phone Lorelei Tam MD Primary Care Provider [phone] Encounter Details Date Type Department Care Team (Late st Contact Info) Description 01/08/2024 Orders Only General Internal Medicine [facility] 200 [place] [address] Lorelei Tam MD 200 [place] [address] Allergies Active Allergy Reactions Criticality Noted Date [...] MCG/0.3 mL, 12 YRS AND ABOVE, IM ([facility]) 08/21/2023 Covid-19, Mrna, Lnp-s, Pf, B [...] Description 01/12/2024 10:15 AM EST Imaging Radiology [address] 132 [place] [address] 03/25/2024 9:45 AM EDT Office Visit Dermatology [facility] 200 [place] [address] Tito Escobedo MD [address] [place] [address] 05/19/2024 7:30 AM EDT Hospital Encounter OR [facility], Operating Room, [facility] 1st [facility] 1020 [place] [address] Ashlyn Santo MD [address] [place] [address] 05/19/2024 7:30 AM EDT - 05/19/2024 8:45 AM EDT Surgery OR [facility], Operating Room, [facility] 1st Floor 1020 [place] [address] Ashlyn Santo MD [address] [place] [address] ANORECTAL EXAM UNDER ANESTHESIA 05/24/2024 9:00 AM EDT Office Visit General Surgery, [place] [address] [place] [address] Dolly Marcos PA-C [address] [place] [address] 07/04/2024 10:40 AM EDT Office Visit Family Practice [facility] 200 [facility] [place] [address] Karla Mckeon MD 200 [facility] [place] [address] Scheduled Procedures Name Priority Associated Diagnoses Date/Ti [...] filedocumented as of this encounter Care Teams Hand Sprayer Relationship Specialty Start Date End Date Lorelei Tam MD [address] [place] [address], [place] [address] PCP - General Internal Medicine 12/27/22 documented as of this encounter
--- OUTSIDE RECORDS SUMMARY | 2024-02-02 06:24 | External Medical Summary | Summary of Care ---
Author Name Unknown Organization [facility] Address [address] [place] [address] Phone [phone] Care Team Providers Care Psychology Associate Name Role Phone Lorelei Tam MD Primary Care Provider [phone] Reason for Visit * Reason Onset Date Comments Appointment 01/04/2024 Venofer Encounter Details Date Type Department Care Team (Late st Contact Info) Description 01/04/2024 Telephone Hematology/Oncology [facility] 200 [facility] [place] [address] Lorelei Tam MD [address] [place] [address] Appointment (Nikia) Allergies Active Allergy Reactions Criticality [...] MCG/0.3 mL, 12 YRS AND ABOVE, IM (PFIZER-[facility]) 08/21/2023 Covid-19, Mrna, Lnp-s, Pf, B [...] 01/04/2024 3:34 PM EST Received Venofer order. [place] plan built and routed for signature. No auth required, awaiting review. Once signed and reviewed can schedule. documented in this encounter Plan of Treatment Upcoming Encounters Date Type Department Care Team (Latest Contact Info) Description 01/12/2024 10:15 AM EST Imaging Radiology [facility] 1st [facility] 132 [facility] [place] [address] 01/21/2024 1:00 PM EST Office Visit General Internal Medicine [facility] [address] [place] [address] Lorelei Tam MD 200 [facility] [place] [address] 03/25/2024 9:45 AM EDT Office Visit Dermatology [facility] [place] 200 [facility] [place] [address] Tito Escobedo MD [address] [place] [address] 7826722 05/19/2024 7:30 AM EDT Hospital Encounter OR [facility], Operating Room, [facility] 1st Floor 1020 [place] [address] Ashlyn Santo MD [address] [place], [place] [phone] 05/19/2024 7:30 AM EDT - 05/19/2024 8:45 AM EDT Surgery OR [facility], Operating Room, [facility] 1st Floor 1020 [place] [address] Ashlyn Santo MD [address] [place], [place] [phone] ANORECTAL EXAM UNDER ANESTHESIA 05/24/2024 9:00 AM EDT [facility] [address] [place], [place] [phone] Dolly Marcos PA-C [address] [place], [place] [phone] 07/04/2024 10:40 AM EDT Office Visit Family Practice [facility] 200 [facility] [place], [place] [address] Karla Mckeon MD 200 [facility] [place] [address] Scheduled Procedures Name Priority Associated Diagnoses Date/Ti [...] 05/28/2028 05/28/2023, 05/28/2023 Lipid Panel 01/01/2029 01/01/2024, 0805/2023, 12/27/2022 Colonoscopy Discontinued 05/28/2023, 05/28/2023 Colorectal Cancer [...] filedocumented as of this encounter Care Teams Psychology Associate Relationship Specialty Start Date End Date Lorelei Tam MD 200 [place] [address] PCP - General Internal Medicine 12/27/22 documented as of this encounter
--- OUTSIDE RECORDS SUMMARY | 2024-02-02 06:24 | External Medical Summary | Summary of Care ---
Author Name Unknown Organization [facility] Address [address] [place] [address] Phone [phone] Care Team Providers Care Match Maker Name Role Phone Lorelei Tam MD Primary Care Provider [phone] Reason for Visit * Reason Onset Date Comments Appointment 01/04/2024 Venofer Encounter Details Date Type Department Care Team (Late st Contact Info) Description 01/04/2024 Telephone Hematology/Oncology [facility] 200 [place] [address] Lorelei Tam MD [address] [place] [address] Appointment (Nikia) Allergies Active Allergy Reactions Criticality [...] MCG/0.3 mL, 12 YRS AND ABOVE, IM ([facility]ZER-[facility]) 08/21/2023 Covid-19, Mrna, Lnp-s, Pf, B [...] Internal Med- Please have Dr. Tam sign [place] orders for patients Venofer treatments. We are unable to schedule the patient until these are signed. Thanks. * Telephone Encounter - Stephanie Coon RN - 01/08/2024 8:09 AM EST Normal plan still not signed, TT sent to provider. * Telephone Encounter - Stephanie Coon RN - 01/06/2024 8:12 AM EST Esecure email sent to provider with beacon directions. * Telephone Encounter - Harmeet Larsen RN - 01/04/2024 3:34 PM EST Received Venofer order. [place] plan built and routed for signature. No auth required, awaiting review. Once signed and reviewed can schedule. documented in this encounter Plan of Treatment Upcoming Encounters Date Type Department Care Team (Latest Contact Info) Description 01/12/2024 10:15 AM EST Imaging Radiology [address] 132 [place] [address] 03/25/2024 9:45 AM EDT Office Visit Dermatology [facility] 200 [place] [address] Tito Escobedo MD [address] [place] [address] 05/19/2024 7:30 AM EDT Hospital Encounter OR [facility], Operating Room, [address] 1020 [place] [address] Ashlyn Santo MD [address] [place], [place] [phone] 05/19/2024 7:30 AM EDT - 05/19/2024 8:45 AM EDT Surgery OR [facility], Operating Room, [facility] 1st Floor 1020 [place] [address] Ashlyn Santo MD [address] [place] [address] ANORECTAL EXAM UNDER ANESTHESIA 05/24/2024 9:00 AM EDT Office Visit General Surgery, [place] [address] [place] [address] Dolly Marcos PA-C [address] [place], [place] [address] 07/04/2024 10:40 AM EDT Office Visit Family Practice [facility] 200 [place] [address] Karla Mckeon MD 200 [place] [address] Scheduled Procedures Name Priority Associated Diagnoses Date/Ti [...] filedocumented as of this encounter Care Teams Match Maker Relationship Specialty Start Date End Date Lorelei Tam MD 200 [place] [address] PCP - General Internal Medicine 12/27/22 documented as of this encounter
--- OUTSIDE RECORDS SUMMARY | 2024-02-02 06:24 | External Medical Summary | Summary of Care ---
Author Name Unknown Organization [facility] Address [address] [place] [address] Phone [phone] Care Team Providers Care Press Operator Name Role Phone Lorelei Tam MD Primary Care Provider [phone] Reason for Visit * Reason Onset Date Comments Appointment 01/04/2024 Venofer Encounter Details Date Type Department Care Team (Late st Contact Info) Description 01/04/2024 Telephone Hematology/Oncology [facility] 200 [place] [address] Lorelei Tam MD [address] [place] [address] Appointment (Nikia) Allergies Active Allergy Reactions Criticality [...] MCG/0.3 mL, 12 YRS AND ABOVE, IM (PFIZER-[facility]) 08/21/2023 Covid-19, Mrna, Lnp-s, Pf, B ivalent, [...] encounter Miscellaneous Notes * Telephone Encounter - Lorelei Tam MD - 01/08/2024 1:34 PM EST Done this morning , let me know if not done correctly * Telephone Encounter - Harmeet Larsen RN - 01/08/2024 8:25 AM EST Internal Med- Please have Dr. Tam sign [place] orders for patients Venofer treatments. We are unable to schedule the patient until these are signed. Thanks. * Telephone Encounter - Stephanie Coon RN - 01/08/2024 8:09 AM EST [place] plan still not signed, TT sent to provider. * Telephone Encounter - Stephanie Coon RN - 01/06/2024 8:12 AM EST Esecure email sent to provider with beacon directions. * Telephone Encounter - Harmeet Larsen RN - 01/04/2024 3:34 PM EST Received Venofer order. [place] plan built and routed for signature. No auth required, awaiting review. Once signed and reviewed can schedule. documented in this encounter Plan of Treatment Upcoming Encounters Date Type Department Care Team (Latest Contact Info) Description 01/12/2024 10:15 AM EST Imaging Radiology [address] 132 [place] [address] 03/25/2024 9:45 AM EDT Office Visit Dermatology [facility] 200 [place] [address] Tito Escobedo MD [address] [place] [address] [id number] 05/19/2024 7:30 AM EDT Hospital Encounter OR [facility], Operating Room, [facility] 1st [facility] 1020 [place] [address] Ashlyn Santo MD [address] [place] [address] 05/19/2024 7:30 AM EDT - 05/19/2024 8:45 AM EDT Surgery OR [facility], Operating Room, [address] [place] [address] Ashlyn Santo MD [address] [place] [address] ANORECTAL EXAM UNDER ANESTHESIA 05/24/2024 9:00 AM EDT Office Visit General Surgery, [place] [address] [place] [address] Dolly Marcos PA-C [address] [place] [address] 07/04/2024 10:40 AM EDT Office Visit Family Practice [facility] [place] 200 [place] [address] Karla Mckeon MD 200 [facility] [place] [address] Scheduled Procedures Name Priority Associated Diagnoses Date/Ti [...] filedocumented as of this encounter Care Teams Press Operator Relationship Specialty Start Date End Date Lorelei Tam MD 200 [place] [address] PCP - General Internal Medicine 12/27/22 documented as of this encounter
--- OUTSIDE RECORDS SUMMARY | 2024-02-02 06:24 | External Medical Summary | Summary of Care ---
Author Name Unknown Organization [facility] Address [address] [place] [address] Phone [phone] Care Team Providers Care Fabric Machine Operator Name Role Phone Lorelei Tam MD Primary Care Provider [phone] Reason for Visit * Reason Onset Date Comments Appointment 01/04/2024 Venofer Encounter Details Date Type Department Care Team (Late st Contact Info) Description 01/04/2024 Telephone Hematology/Oncology [facility] 200 [facility] [place] [address] Lorelei Tam MD [address] [place] [address] Appointment ([place]) Allergies Active Allergy Reactions Criticality [...] MCG/0.3 mL, 12 YRS AND ABOVE, IM ([facility]) 08/21/2023 Covid-19, Mrna, Lnp-s, Pf, B [...] Internal Med- Please have Dr. Tam sign [place] orders for patients Venofer treatments. We are unable to schedule the patient until these are signed. Thanks. * Telephone Encounter - Stephanie Coon RN - 01/08/2024 8:09 AM EST [place] plan still not signed, TT sent to provider. * Telephone Encounter - Stephanie Coon RN - 01/06/2024 8:12 AM EST Esecure email sent to provider with beacon directions. * Telephone Encounter - Harmeet Larsen RN - 01/04/2024 3:34 PM EST Received Venofer order. [place] plan built and routed for signature. No auth required, awaiting review. Once signed and reviewed can schedule. documented in this encounter Plan of Treatment Upcoming Encounters Date Type Department Care Team (Latest Contact Info) Description 01/12/2024 10:15 AM EST Imaging Radiology [address], [address] [place] [address] 03/25/2024 9:45 AM EDT Office Visit Dermatology [facility] 200 [facility] [place] [address] Tito Escobedo MD [address] [place] [address] 05/19/2024 7:30 AM EDT Hospital Encounter OR [facility], Operating Room, [facility] 1st Floor [address] [place] [address] Ashlyn Santo MD [address] [place] [address] 05/19/2024 7:30 AM EDT - 05/19/2024 8:45 AM EDT Surgery OR [facility], Operating Room, [facility] 1st Floor [address] [place] [address] Ashlyn Santo MD [address] [place] [address] ANORECTAL EXAM UNDER ANESTHESIA 05/24/2024 9:00 AM EDT [facility] [address], [place] [id number] Dolly Marcos PA-C [address] [place], [place] [address] 07/04/2024 10:40 AM EDT Office Visit Family Practice [facility] 200 [facility] [place] [address] Karla Mckeon MD 200 [facility] [place] [address] Scheduled Procedures Name Priority Associated Diagnoses Date/Ti [...] filedocumented as of this encounter Care Teams Fabric Machine Operator Relationship Specialty Start Date End Date Lorelei Tam MD 200 [place] [address] PCP - General Internal Medicine 12/27/22 documented as of this encounter
--- OUTSIDE RECORDS SUMMARY | 2024-02-02 06:24 | External Medical Summary | Summary of Care ---
Author Name Unknown Organization [facility] Address [address] [place] [address] Phone [phone] Care Team Providers Care Injection Specialist Name Role Phone Lorelei Tam MD Primary Care Provider Reason for Visit * Reason Onset Date Comments Appointment 01/04/2024 Venofer Encounter Details Date Type Department Care Team (Late st Contact Info) Description 01/04/2024 Telephone Hematology/Oncology [facility] 200 [facility] [place] [address] Lorelei Tam MD [address] [place] [address] Appointment ([place]ia) Allergies Active Allergy Reactions Criticality Noted Date Comments Pollen 04/28/2022 documented as of this encounter (statuses as of 01/06/2024) Medications Medication Sig Dispensed Refills Start Date [...] as of this encounter (statuses as of 01/06/2024) Active Problems Problem Noted Date Diagnosed Date Anemia 01/04/2024 Iron deficiency anemia 07/02/2023 Hyperlipidemia with target LDL less than 100 04/2022 Herpes simplex virus infection 04/28/2022 BMI 31.0-31.9,adult 04/28/2022 PTSD (post-traumatic stress disorder) 04/28/2022 Eczema 04/28/2022 Adenomatous polyp of colon 04/28/2022 documented as of this encounter (statuses as of 01/06/2024) Immunizations Name Administration Dates Next Due COVID-19 mRNA, LNP-s, No Pre serve, 2-Dose Series (Moderna) 10/20/2021,03/07/2021,02/07/2021 COVID-19, MRNA-LNP, 23-24, P F, 30 MCG/0.3 mL, 12 YRS AND ABOVE, IM (PFIZER-[facility]) 08/21/2023 Covid-19, Mrna, Lnp-s, Pf, B ivalent, [...] 01/04/2024 3:34 PM EST Received Venofer order. [place] plan built and routed for signature. No auth required, awaiting review. Once signed and reviewed can schedule. documented in this encounter Plan of Treatment Upcoming Encounters Date Type Department Care Team (Latest Contact Info) Description 01/12/2024 10:15 AM EST Imaging Radiology [address] [facility] [place] [address] 01/21/2024 1:00 PM EST Office Visit General Internal Medicine [facility] [address] [place] [address] Lorelei Tam MD [address] [place] [address] 03/25/2024 9:45 AM EDT Office Visit Dermatology [facility] [address] [place] [address] Tito Escobedo MD [address] [place] [address] 05/19/2024 7:30 AM EDT Hospital Encounter OR [facility], Operating Room, [address] [place] [address] Ashlyn Santo MD [address] [place], [place] [id number] 05/19/2024 7:30 AM EDT - 05/19/2024 8:45 AM EDT Surgery OR [facility], Operating Room, [address] [place] [address] Ashlyn Santo MD [address] [place], [place] [phone] ANORECTAL EXAM UNDER ANESTHESIA 05/24/2024 9:00 AM EDT Office Visit General [facility] [address] [place], [place] [phone] Dolly Marcos PA-C [address] [place] [address] 07/04/2024 10:40 AM EDT Office Visit Family Practice [facility] [address] [place] [address] Karla Mckeon MD [address] [place] [address] Scheduled Procedures Name Priority Associated Diagnoses Date/Ti [...] filedocumented as of this encounter Care Teams Injection Specialist Relationship Specialty Start Date End Date Lorelei Tam MD 200 [facility] [place] [address] PCP - General Internal Medicine 12/27/22 documented as of this encounter
--- OUTSIDE RECORDS SUMMARY | 2024-02-02 06:24 | External Medical Summary | Summary of Care ---
Author Name Unknown Organization [facility] Address [address] [place] [address] Phone [phone] Care Team Providers Care Risk Intern Name Role Phone Lorelei Tam MD Primary Care Provider [phone] Reason for Visit * Reason Onset Date Comments Appointment 01/04/2024 Venofer Encounter Details Date Type Department Care Team (Late st Contact Info) Description 01/04/2024 Telephone Hematology/Oncology [facility] 200 [place] [address] Lorelei Tam MD [address] [place] [address] Appointment (Nikia) Allergies Active Allergy Reactions Criticality [...] MCG/0.3 mL, 12 YRS AND ABOVE, IM ([facility]ZER-[facility]) 08/21/2023 Covid-19, Mrna, Lnp-s, Pf, B [...] encounter Miscellaneous Notes * Telephone Encounter - Sissy Diaz OSA [...] Internal Med- Please have Dr. Tam sign [place] orders for patients Venofer treatments. We are unable to schedule the patient until these are signed. Thanks. * Telephone Encounter - Stephanie Coon RN - 01/08/2024 8:09 AM EST [place] plan still not signed, TT sent to provider. * Telephone Encounter - Stephanie Coon RN - 01/06/2024 8:12 AM EST Esecure email sent to provider with beacon directions. * Telephone Encounter - Harmeet Larsen RN - 01/04/2024 3:34 PM EST Received Venofer order. [place] plan built and routed for signature. No auth required, awaiting review. Once signed and reviewed can schedule. documented in this encounter Plan of Treatment Upcoming Encounters Date Type Department Care Team (Latest Contact Info) Description 01/12/2024 10:15 AM EST Imaging Radiology [facility] 1st [facility] 132 [facility] [place] [address] 03/25/2024 9:45 AM EDT Office Visit Dermatology [facility] 200 [facility] [place] [address] Tito Escobedo MD [address] [place], [place] [address] [address] 05/19/2024 7:30 AM EDT Hospital Encounter OR [facility], Operating Room, [facility] 1st Floor [address] [place] [address] Ashlyn Santo MD [address] [place] [address] 05/19/2024 7:30 AM EDT - 05/19/2024 8:45 AM EDT Surgery OR [facility], Operating Room, [facility] 1st Floor [address] [place] [address] Ashlyn Santo MD [address] [place], [place] [phone] ANORECTAL EXAM UNDER ANESTHESIA 05/24/2024 9:00 AM EDT [facility] [address] [place] [address] Dolly Marcos PA-C [address] [place], [place] [address] 07/04/2024 10:40 AM EDT Office Visit [facility] Practice [facility] 200 [place] [address] Karla Mckeon MD 200 [place] [address] Scheduled Procedures Name Priority Associated Diagnoses Date/Ti [...] filedocumented as of this encounter Care Teams Risk Intern Relationship Specialty Start Date End Date Lorelei Tam MD 200 [facility] [place] [address] PCP - General Internal Medicine 12/27/22 documented as of this encounter
--- OUTSIDE RECORDS SUMMARY | 2024-02-02 06:25 | External Medical Summary ---
Author Name Unknown Address Unknown Organization K01:[facility] - [address] [place] [address] Laboratory Report Ordering Provider Test Date Status PREETHI PAUL 01/01/2024 10:52:21 Final Observation Date Value Abnormality Reference (Units ) Status Iron 01/01/2024 10:52:21 21 Below low normal 33-151 (ug/dL) Final Iron-binding capacity 01/01/2024 10:52:21 433 Above high normal 250-425 (ug/dL) Final Transferrin Sat % 01/01/2024 10:52:21 5 Below low normal 15-55 (%) Final Performing Location [facility] - [address] [place] [address]
--- OUTSIDE RECORDS SUMMARY | 2024-02-02 06:25 | External Medical Summary | Summary of Care ---
Author Name Unknown Organization [facility] Address [address] [place] [address] Phone [phone] Care Team Providers Care Rn Private Duty Name Role Phone Lorelei Tam MD Primary Care Provider [phone] Reason for Visit * Reason Onset Date Comments Test Results 01/02/202401/02 Encounter Details Date Type Department Care Team (Late st Contact Info) Description 01/02/2024 Telephone General Internal Medicine [facility] 200 [place] [address] Lorelei Tam MD 200 [place] [address] Test Results (01/02) Allergies Active Allergy Reactions Criticality Noted Date Comments Pollen 04/28/2022 documented as of this encounter (statuses as of 01/02/2024) Medications Medication Sig Dispensed Refills Start Date [...] as of this encounter (statuses as of 01/02/2024) Active Problems Problem Noted Date Diagnosed Date Iron deficiency anemia 07/02/2023 Hyperlipidemia with target LDL less than 100 04/2022 Herpes simplex virus infection 04/28/2022 BMI 31.0-31.9,adult 04/28/2022 PTSD (post-traumatic stress disorder) 04/28/2022 Eczema 04/28/2022 Adenomatous polyp of colon 04/28/2022 documented as of this encounter (statuses as of 01/02/2024) Immunizations Name Administration Dates Next Due COVID-19 mRNA, LNP-s, No Pre serve, 2-Dose Series (Moderna) 10/20/2021,03/07/2021,02/07/2021 COVID-19, MRNA-LNP, 23-24, P F, 30 MCG/0.3 mL, 12 YRS AND ABOVE, [facility] 08/21/2023 Covid-19, Mrna, Lnp-s, Pf, B [...] encounter Miscellaneous Notes * Telephone Encounter - Ciera Lawrence LPN - 01/02/2024 3:14 PM EST [facility] will reach out to schedule patient. Thank you * Telephone Encounter - Lorelei Tam MD - 01/02/2024 2:53 PM EST Signed and sent to scheduling Orion Vang * Telephone Encounter - Ciera Lawrence LPN - 01/02/2024 12:25 PM EST Patient is aware and will comply. DR Tam, please sign order that is pended. [facility] will then reach out to patient for scheduling. Thank you * Telephone Encounter - Ciera Lawrence LPN - 01/02/2024 12:20 PM EST ----- Message from Lorelei Tam MD sent at 01/02/2024 10:59 AM EST ----- Significant drop in Hb due to hemorrhoidal bleeding . Intolerant of oral iron supplement . Needs Venofer 200 mg weekly # 4 then every month until hemorrhoidal surgery - order placed. Labs in 3 monthsfor follow up placed Please notify her and help with infusion place at heme/onc . Nurse coordinator from [facility] might be able to do but not sure Rest albs stable documented in this encounter Plan of Treatment Upcoming Encounters Date Type Department Care Team (Latest Contact Info) Description 01/12/2024 10:15 AM EST Imaging Radiology [facility] 1st [facility] [address] [place] [address] 01/21/2024 1:00 PM EST Office Visit General Internal Medicine [facility] [address] [facility] [place] [address] Lorelei Tam MD [address] [facility] [place] [address] 03/25/2024 9:45 AM EDT Office Visit Dermatology [facility] [address] [facility] [place] [address] Tito Escobedo MD [address] [place] [address] 05/19/2024 7:30 AM EDT Hospital Encounter OR [facility], Operating Room, [facility] 1st Floor [address] [place] [address] Ashlyn Santo MD 100 [place] [address] 05/19/2024 7:30 AM EDT - 05/19/2024 8:45 AM EDT Surgery OR [facility], Operating Room, [facility] 1st Floor [address] [place] [address] Ashlyn Santo MD [address] [place] [address] ANORECTAL EXAM UNDER ANESTHESIA 05/24/2024 9:00 AM EDT Office Visit General Surgery, [place] [address] [place] [address] Dolly Marcos PA-C [address] [place], [place] [address] 07/04/2024 10:40 AM EDT Office Visit Family Practice [facility] [address] [facility] [place] [address] Karla Mckeon MD [address] [facility] [place] [address] Scheduled Procedures Name Priority Associated Diagnoses Date/Ti [...] as of this encounter Visit Diagnoses Diagnosis Anemia- Primary Anemia, unspecified Iron deficiency anemia, unspecified iron deficiency anemia type Hemorrhoids Unspecified hemorrhoids without mention of complication documented in this encounter Care Teams Rn Private Duty Relationship Specialty Start Date End Date Lorelei Tam MD [address] [facility] [place] [address] PCP - General Internal Medicine 12/27/22 documented as of this encounter
--- OUTSIDE RECORDS SUMMARY | 2024-02-02 06:25 | External Medical Summary | Summary of Care ---
Author Name Unknown Organization [facility] Address [address] [place] [address] Phone [phone] Care Team Providers Care Farm Machine Operator Name Role Phone Lorelei Tam MD Primary Care Provider [phone] Reason for Visit * Reason Onset Date Comments Allergy Injection 12/10/2023 Encounter Details Date Type Department Care Team (Late st Contact Info) Description 12/10/2023 9:30 AM EST Immunization/I njection Allergy/Immunology [facility] [address] [place] [address] [place], Nurse Allergy [facility] 200 [place] [address] Allergic rhinitis, unspecified seasonality, unspecified trigger* Allergies Active Allergy Reactions Criticality Noted Date Comments Pollen 04/28/2022 documented as of this encounter (statuses as of 12/10/2023) Medications Medication Sig Dispensed Refills Start Date [...] DAY IN THE MORNING, Reported on 05/22/2023 documented as of this encounter (statuses as of 12/10/2023) Active Problems Problem Noted Date Diagnosed Date Iron deficiency anemia 07/02/2023 Hyperlipidemia with target LDL less than 100 04/2022 Herpes simplex virus infection 04/28/2022 BMI 31.0-31.9,adult 04/28/2022 PTSD (post-traumatic stress disorder) 04/28/2022 Eczema 04/28/2022 Adenomatous polyp of colon 04/28/2022 documented as of this encounter (statuses as of 12/10/2023) Immunizations Name Administration Dates Next Due COVID-19 mRNA, LNP-s, No Pre serve, 2-Dose Series (Moderna) 10/20/2021,03/07/2021,02/07/2021 Covid-19, Mrna, Lnp-s, Pf, B ivalent, 30 Mcg, IM, 12 yrs and above (Pfizer) 11/19/2022 Hepatitis B, 20+ yrs 07/06/2023,02/04/2023,01/05 Seasonal Influenza, PF, 6 M & above, IM , (FluLaval or Fluzone) 08/09/2022 documented as of this encounter Social History Tobacco Use Types Packs/Day Years Used Date Smoking Tobacco: Never Smokeless Tobacco: Never Alcohol Use Standard Drinks/Week Comments Never 0 (1 standard drink = 0.6 oz pur e alcohol) PHQ-2 Answer Date Recorded PHQ Adult Total Score 0 12/29/2022 Hunger Vital Sign Answer Date Recorded Within [...] 1:37 PM EDT Sexual Orientation Straight 08/21/2022 1 :37 PM EDT Job Start Date Occupation Industry Not on file Not on file Not on file documented as of this encounter Progress Notes * Heike Serrano LPN - 12/10/2023 9:32 AM EST Pre-injection Questionnaire Patient identified by [...] Department Care Team (Latest Contact Info) Description 12/17/2023 9:30 AM EST Immunization/Injec tion Allergy/Immunology [place] [facility] [place] [address] [place] [address] [place] Nurse Allergy [facility] [address] [place] [address] 01/01/2024 10:20 AM EST Office Visit General Internal Medicine [facility] [address] [place] [address] Lorelei Tam MD [address] [place] [address] 01/12/2024 10:15 AM EST Imaging Radiology [address] [facility] [address] 01/21/2024 1:00 PM EST Office Visit General Internal Medicine [facility] [address] [place] [address] Lorelei Tam MD [address] [place] [address] 03/25/2024 9:45 AM EDT Office Visit Dermatology [facility] [address] [place] [address] Tito Escobedo MD [address] [place] [address] 05/19/2024 7:30 AM EDT Hospital Encounter [facility], Operating Room, [place] [address] [place] [address] sAhlyn Santo MD [address] [place], [place] [phone] 05/19/2024 7:30 AM EDT - 05/19/2024 8:45 AM EDT Surgery OR [facility], Operating Room, [address] [place] [address] Ashlyn Santo MD [address] [place], [place] [phone] ANORECTAL EXAM UNDER ANESTHESIA 05/24/2024 9:00 AM EDT Office Visit General [facility] [address] [place], [place] [phone] Dolly Marcos PA-C [address] [place] [address] Scheduled Procedures Name Priority Associated Diagnoses Date/Ti me ANORECTAL EXAM UNDER ANESTHESIA Hemorrhoids 05/19/2024 7:30 AM EDT HEMORRHOIDECTOMY EXTERNAL AN D INTERNAL COMPLEX Hemorrhoids 05/19/2024 7:30 AM EDT COLONOSCOPY FLEXIBLE PROXIMA L DIAGNOSTIC Recall History of colon polyps Health Maintenance Due Date Last Done Comments DTaP,Tdap,and Td Vaccines (1 - Tdap) 1996 Pap Smear 1998 Cervical Cancer Screening 2007 HPV/Co-Test 2007 COVID-19 Vaccine (2022-24 season) 2023 11/19/2022, 10/20/2021, 03/07/2021, Additional history exists Influenza Vaccine (FLU shot) (#1) 2023 08/09/2022 Depression Screening 12/29/2023 12/29/2022 Mammogram 01/07/2024 01/07/2023, 01/02/2023 Diabetes Screening 06/29/2026 06/29/2023, 12/27/2022 COLONOSCOPY-EVERY 5 YRS AGES 18-100 05/28/2028 05/28/2023, 05/28/2023 Lipid Panel 06/29/2028 06/29/2023, 12/27/2022 Colonoscopy Discontinued 05/28/2023, 05/28/2023 Colorectal Cancer Screening Discontinued Hepatitis B Completed 07/06/2023, 01/21, 01/05/2023 Cologuard Discontinued Fecal Occult Blood Test Discontinued [...] complication documented in this encounter Care Teams Farm Machine Operator Relationship Specialty Start Date End Date Lorelei Tam MD [address] [place] [address] PCP - General Internal Medicine 12/27/22 documented as of this encounter
--- OUTSIDE RECORDS SUMMARY | 2024-02-02 06:25 | External Medical Summary ---
Author Name Unknown Address Unknown Organization K09:[facility] - [address] [place] [address] Laboratory Report Ordering Provider Test Date Status PREETHI PAUL 01/01/2024 10:52:21 Final Observation Date Value Abnormality Reference (Units ) Status BUN 01/01/2024 10:52:21 16 6-20 (mg/dL) Final Creatinine 01/01/2024 10:52:21 0.8 0.5-1.0 (mg/dL) Final Glomerular filtration rate/1.73 sq M.predicted [Volume Rate/Area] in Serum, Plasma or Blood by Creatinine-based formula (CKD-EPI) 01/01/2024 10:52:21 >90 >=60 (mL/min) Final eGFR is calculated based on the CKD-EPI 2020 equation SODIUM 01/01/2024 10:52:21 139 135-146 (m mol/L) Final Potassium 01/01/2024 10:52:21 4.2 3.5-5.1 (m mol/L) Final Cl 01/01/2024 10:52:21 104 98-107 (mm ol/L) Final CO2 01/01/2024 10:52:21 24 22-32 (mmo l/L) Final Anion gap 01/01/2024 10:52:21 11 7-15 (mmol /L) Final Glucose 01/01/2024 10:52:21 91 70-120 (mg /dL) Final Albumin 01/01/2024 10:52:21 4.5 3.8-5.0 (g /dL) Final AST (Aspartate aminotransferase) 01/01/2024 10:52:21 20 10-35 (U/L) Final Alk Phos 01/01/2024 10:52:21 69 35-130 (U/ L) Final Bilirubin, Total 01/01/2024 10:52:21 0.2 <=1 .2 (mg/dL) Final Calcium 01/01/2024 10:52:21 9.3 8.4-10.2 ( mg/dL) Final Protein 01/01/2024 10:52:21 7.2 6.0-8.3 (g /dL) Final ALT (Alanine aminotransferase) 01/01/2024 10:52:21 24 10-35 (U/L) Final Performing Location [facility] - [address] [place] [address]
--- OUTSIDE RECORDS SUMMARY | 2024-02-02 06:25 | External Medical Summary | Summary of Care ---
Author Name Unknown Organization [facility] Address [address] [place] [address] Phone [phone] Care Team Providers Care Machine Chain Maker Name Role Phone Lorelei Tam MD Primary Care Provider [phone] Reason for Visit * Reason Comments Physical-Exam Encounter Details Date Type Department Care Team (Late st Contact Info) Description 01/01/2024 10:20 AM EST Office Visit General Internal Medicine [facility] [address] [place] [address] Lorelei Tam MD [address] [place] [address] Routine medical exam*; Hemorrhoids with complication; Adenomatous polyp of colon, unspecified part of colon; Eczema, unspecified type; BMI 31.0-31.9,adult; Herpes simplex virus infection; Hyperlipidemia with target LDL less than 100; Iron deficiency anemia, unspecified iron deficiency anemia type; PTSD (post-traumatic stress disorder) Allergies Active Allergy Reactions Criticality Noted Date [...] Sign Reading Time Taken Comments Blood Pressure 110/72 01/01/2024 10:14 AM EST Pulse 83 01/01/2024 10:14 AM EST Temperature 36.6 C (97.8 F) 01/01/2024 10:[address] Respiratory Rate - - Oxygen Saturation 98% 01/01/2024 10:14 AM EST Inhaled Oxygen Concentration - - Weight 82.7 kg (182 lb 6.4 oz) 01/01/2024 10:14 AM EST Height 154.9 cm (5' 1") 01/01/2024 10:14 AM EST Body Mass Index 34.46 01/01/2024 10:14 AM EST documented in this encounter Progress Notes * Lorelei Tam MD - 01/01/2024 10:20 AM EST SUBJECTIVE: Lima Dickerson is a 48 year old female. Chief Complaint Patient presents with Physical-Exam HPI: 48 year old female with PMH significant for Hyperlipidemia, ZACH/PTSD,hemorrhoids and recurrent HSV presents here for complete physical. Since last seen she has been feeling overall okay Acute issue or concern: -continues to have hemorrhoidal bleed whenever she jumps or sit for a long time or any lifting . Was seen by colo surgery and has surgery scheduled in April other medical issue : seen by GI , had IV iron and was treated for H.Pylorie Fam h/o CAD, DM,PVD,stroke: High cholesterol in the family and dad had heart attack the age of 40 Significant fam h/o cancer: Lung cancer in mother and maternal grandfather Watching diet : Yes doing better but hard due to cooking differently for kids Doing regular exercise: Consistent with walking 5 days a week- not so much due to bleeding Routine labs: Labs reviewed with patient. Overall stable Routine HM: Reviewed, discussed and recommended, patient agreeable to catch up. Had new COVID booster and will send card picture in my G Being followed by Derm: Yes Being followed by any other specialist: Ditching Machine Engineer, GI and surgery Other chronic medical problem: Reviewed and stable Patient Active Problem List Diagnosis Code Hyperlipidemia with target LDL less than 100 E78.5 Herpes simplex virus infection B00.9 BMI 31.0-31.9,adult Z68.31 PTSD (post-traumatic stress disorder) F43.10 Eczema L30.9 Adenomatous polyp of colon D12.6 Iron deficiency anemia D50.9 Current Outpatient Medications Medication Sig Dispense Refill valACYclovir HCl 500 MG Oral Tablet (Valtrex) Take 1 Tablet by mouth 2 times a day as needed. Mometasone Furoate 0.1 % External Cream APPLY TO THE AFFECTED AREA ON LEGS AND BACK EVERY DAY NEEDED FOR 2 WEEKS 45 g 1 Clobetasol Propionate 0.05 % External Cream (Temovate) Apply to rash once a day for 1-2 weeks as needed. 45 g 1 Tretinoin 0.025 % External Cream Apply to face nightly. 45 g 1 Clindamycin Phosphate 1 % External Gel Apply to acne prone areas in the morning 60 g 2 Benefiber Oral Powder Take 1 Tbsf in a glass of water daily Atorvastatin Calcium 10 MG Oral Tablet (Lipitor) TAKE ONE TABLET BY MOUTH EVERY MORNING (Patient taking differently: daily. TAKE 1 TABLET BY MOUTH EVERY DAY IN THE MORNING) 90 Tablet 3 Levonorgestrel 20 MCG/24HR Intrauterine Intrauterine Device (Mirena) Insert 1 Each into uterus once. No current facility-administered medications for this visit. The patient's medication list was reviewed and updated as needed. Past Medical History: Diagnosis Date Adenomatous polyp of colon 04/28/2022 Anemia Eczema 04/28/2022 Hemorrhoids Herpes simplex virus infection 04/28/2022 Hyperlipidemia with target LDL less than 100 04/28/2022 PTSD (post-traumatic stress disorder) 04/28/2022 Social History Socioeconomic History Marital status: Tobacco Use Smoking status: Never Smokeless tobacco: Never Vaping Use Vaping Use: Never used Substance and Sexual Activity Alcohol use: Never Drug use: Never Comment: Uses CBD/THC gummies at times Sexual activity: Yes Partners: Male control/protection: I.U.D. Comment: Mirena IUD 2017 Social History Narrative . Originally from [place] Social Determinants of Health Food Insecurity: No Food Insecurity (12/26/2022) Hunger Vital Sign Worried About Running Out of Food in the Last Year: Never true Ran Out of Food in the Last Year: Never true Review of patient's allergies indicates: Allergen Reactions Environmental [Pollen] Family History Problem Relation Age of Onset Lung cancer Mother 74 2nd hand smoking Hyperlipidemia Mother Skin cancer Mother Heart disease Father 44 s/p CABG Hyperlipidemia Father Alcohol and Other Disorders Associated Father Alcoholic Lung cancer Grandfather (Maternal) Heart attack Grandmother (Paternal) Heart attack Grandfather (Paternal) Family Status Relation Status Mo Alive Fa MGFA (Not Specified) PGMA (Not Specified) PGFA (Not Specified) REVIEW OF SYSTEMS: All 10 systems reviewed and negative except mentioned in HPI OBJECTIVE: BP 110/72 | Pulse 83 | Temp 36.6 C (97.8 F) (Tympanic) | Ht 1.549 m (5' 1") | Wt 82.7 kg (182 lb 6.4 oz) | SpO2 98% | BMI 34.46 kg/m | BSA 1.89 m PHYSICAL EXAM: General: alert, healthy and no distress Head: Normocephalic, No masses, lesions, tenderness or abnormalities Eye Exam: PERRLA, extraocular movements intact, conjunctiva are pink and non- injected, sclera clear Ears: External ears normal, Canals clear, TM's Normal Nose: no mucosal erythema, no mucosal edema, no purulent discharge Oropharynx: no exudate, no erythema, lips, buccal mucosa, and tongue normal and mucous membranes are moist Neck: supple, no adenopathy, no bruits, thyroid normal size, non-tender, without nodularity Lymph: no palpable lymphadenopathy Heart: regular rate & rhythm, no murmur and no gallops Lungs: chest symmetric with normal AP diameter, no chest deformities noted, no chest wall tenderness, lungs clear to auscultation Pulses: carotid=2/4 w/o bruits Abdomen: abdomen soft, non-tender, normal bowel sounds and no masses or organomegaly Back: back symmetric, no curvature, no costovertebral angle tenderness, range of motion is normal Extremities: less than 2 second capillary refill, no joint deformities, effusion, or inflammation Neuro Exam: alert & oriented x 3 with fluent speech, no focal motor/sensory deficits, gait normal ASSESSMENT AND PLAN Routine medical exam (Primary) Routine preventive care discussed like - 1.Taking 2-3 serving of dairy product/day, if can't tolerate should take OTC calcium/vit D ( 600 mg/400 IU) twice a day 2.Healthy diet with low carb,low fat and high in fruits and vegetables discussed 3.Regular exercise at least 3/week of 30 min each 4.Wearing suncreen regularly to prevent skin cancer 5.Self breast exam monthly 6.Routine screening tests and vaccines discussed and recommended Hemorrhoids with complication - CBC; Future; Expected date: 04/01/2024 - FERRITIN; Future; Expected date: 04/01/2024 Adenomatous polyp of colon, unspecified part of colon Eczema, unspecified type Stable BMI 31.0-31.9,adult Herpes simplex virus infection Hyperlipidemia with target LDL less than 100 - COMPREHENSIVE METABOLIC PANEL; Future; Expected date: 01/01/2024 - LIPID PANEL WITH DIRECT LDL IF TG IS HIGH; Future; Expected date: 01/01/2024 Iron deficiency anemia, unspecified iron deficiency anemia type - CBC; Future; Expected date: 01/01/2024 - IRON SCREEN, INCLUDING TIBC; Future; Expected date: 01/01/2024 - FERRITIN; Future; Expected date: 01/01/2024 - Iron Sucrose (Venofer) 200 mg in NSS 100 mL ivpb - Iron Sucrose (Venofer) 200 mg in NSS 100 mL ivpb - CBC; Future; Expected date: 04/01/2024 - FERRITIN; Future; Expected date: 04/01/2024 PTSD (post-traumatic stress disorder) Stable Follow Up: Return in about 6 months (around 07/01/2024) for recheck. | For: recheck | Check-out note:CATHY for pap smear and vaccination Treatment and plan discussed with patient and was given opportunity to ask questions which were answered . Patient verbalized understanding. This note was prepared with the help of fluency and if there is any mis-spelled words , sentences or something which doesn't represent the content of the subject that could be technical error and please refer to the author for clarification. Lorelei Tam MD 01/01/2024 10:20 AM documented in this encounter Nursing Notes * Bibiana Santo LPN - 01/01/2024 10:11 AM EST Chief Complaint Patient presents with Physical-Exam documented in this encounter Plan of Treatment Upcoming Encounters Date Type Department Care Team (Latest Contact Info) Description 01/12/2024 10:15 AM EST Imaging Radiology [facility] 1st [facility], [address] [place] [address] 01/21/2024 1:00 PM EST Office Visit General Internal Medicine [facility] [address] [facility] [place] [address] Lorelei Tam MD [address] [facility] [place] [address] 03/25/2024 9:45 AM EDT Office Visit Dermatology [facility] [address] [facility] [place] [address] Tito Escobedo MD [address] [place] [address] [place] [address] 05/19/2024 7:30 AM EDT Hospital Encounter OR [facility], Operating Room, [facility] 1st Floor [address] [place] [address] Ashlyn Santo MD [address] [place] [address] 05/19/2024 7:30 AM EDT - 05/19/2024 8:45 AM EDT Surgery OR [facility], Operating Room, [facility] 1st Floor [address] [place] [address] Ashlyn Santo MD [address] [place] [address] ANORECTAL EXAM UNDER ANESTHESIA 05/24/2024 9:00 AM EDT [facility] [address] [place] [address] Dolly Marcos PA-C [address] [place] [address] 07/04/2024 10:40 AM EDT Office Visit Family Practice [facility] [address] [place] [address] Karla Mckeon MD [address] [place] [address] Scheduled Orders Name Type Priority Associated Diagnoses Orde r Schedule CBC Lab Routine Iron deficiency anemia, unspecified iron deficiency anemia type Hemorrhoids with complication Expected: 04/01/2024, Expires: 01/01/2025 FERRITIN Lab Routine Iron deficiency anemia, unspecified iron deficiency anemia type Hemorrhoids with complication Expected: 04/01/2024, Expires: 01/01/2025 Scheduled Procedures Name Priority Associated Diagnoses Date/Ti [...] Not on filedocumented as of this encounter Results * LIPID PANEL WITH DIRECT LDL IF TG IS HIGH (01/01/2024 10:52 AM EST) Triglycerides 78 <=174 mg/dL 01/01/2024 11:18 PM EST [facility] Comment: Triglyceride Reference Ranges (mg/dL): <150 Acceptable 150-174 Borderline high 175-499 High >=500 Very high Cholesterol 168 <200 mg/dL 01/01/2024 11:18 PM EST [facility] Comment: Total Cholesterol Reference Ranges (mg/dL): <200 Desirable 200-239 Borderline high >=240 High HDL Cholesterol 62 >49 mg/dL 11:18 PM EST [facility] Comment: HDL Cholesterol Reference Ranges (mg/dL): >=60 High (Desirable) <50 Low (Undesirable) For Females <40 Low (Undesirable) For Males Non-HDL Cholesterol 106 <=159 mg/dL 01/01/2024 11:18 PM EST [facility] Comment: Non-HDL Cholesterol Reference Range (mg/dL): <100 Target level for high risk ASCVD patient <130 Optimal for general population 130-159 Near optimal for general population 160-189 Borderline High 190-219 High >=220 Very High LDL Cholesterol 90 <=129 mg/dL 01/01/2024 11:18 PM EST [facility] Comment: LDL Cholesterol Reference Ranges (mg/dL): <70 Target level for high risk ASCVD patient <100 Optimal for general population 100-129 Near optimal for general population 130-159 Borderline high 160-189 High >=190 Very high Blood Venous blood specimen / Unknown Venipuncture / Unknown 01/01/2024 10:52 AM EST 01/01/2024 10:52 AM EST Lorelei Tam MD LAB BLOOD ORDERABLES Performing Organization Address City/State/[facility] Co de Phone Number [facility]ORY [facility] [address] [place] [address] * COMPREHENSIVE METABOLIC PANEL (01/01/2024 10:52 AM EST) BUN 16 6 - 20 mg/dL 01/01/2024 1:02 PM [facility] 56- Creatinine 0.8 0.5 - 1.0 mg/dL 01/01/2024 1:02 PM [facility] 56- Estimated Glomerular Filtration Rate >90 >=60 mL/min 01/01/2024 1:02 PM [facility] 56- Comment:eGFR is calculated b ased on the CKD-EPI 2020 equation Sodium 139 135 - 146 mmol/L 01/01/2024 1:02 PM [facility] 56- Potassium 4.2 3.5 - 5.1 mmol/L 01/01/2024 1:02 PM [facility] 56- Chloride 104 98 - 107 mmol/L 01/01/2024 1:02 PM [facility] 56- CO2 24 22 - 32 mmol/L 01/01/2024 1:02 PM [facility] 56 Anion Gap 11 7 - 15 mmol/L 01/01/2024 1:02 PM [facility] 56- Glucose 91 70 - 120 mg/dL 01/01/2024 1:02 PM [facility] 56- Albumin 4.5 3.8 - 5.0 g/dL 01/01/2024 1:02 PM [facility] 56 AST 20 10 - 35 U/L 01/01/2024 1:02 PM [facility] 56 Alkaline Phosphatase 69 35 - 130 U/L 01/01/2024 1:02 PM [facility] 56 Bilirubin, Total 0.2 <=1.2 mg/dL 01/01/2024 1:02 PM [facility] 56 Calcium 9.3 8.4 - 10.2 mg/dL 01/01/2024 1:02 PM [facility] 56 Protein 7.2 6.0 - 8.3 g/dL 01/01/2024 1:02 PM [facility] 56- ALT 24 10 - 35 U/L 01/01/2024 1:02 PM [facility] 56-02 Blood Venous blood specimen / Unknown Venipuncture / Unknown 01/01/2024 10:52 AM EST 01/01/2024 10:52 AM EST Lorelei Tam MD LAB BLOOD ORDERABLES [facility] [address] [place], [place] [id number] * (ABNORMAL) FERRITIN (01/01/2024 10:52 AM EST) Ferritin 5(L) 13 - 150 ng/mL 01/02/2024 12:10 AM EST [facility] Comment:Postmenopausal women have higher ferritin levels than pre-menopausal women. The above reference interval is based on pre-menopausal women. Blood Venous blood specimen / Unknown Venipuncture / Unknown 01/01/2024 10:52 AM EST 01/01/2024 10:52 AM EST Lorelei Tam MD LAB BLOOD ORDERABLES Performing Organization Address [facility]/ZIP Co de Phone Number [facility]ORY [facility] [address] [place] [address] * (ABNORMAL) IRON SCREEN, INCLUDING TIBC (01/01/2024 10:52 AM EST) Pathologist [facility] Iron 21(L) 33 - 151 ug/dL 01/01/2024 11:18 PM EST [facility] Iron Binding Capacity 433(H) 250 - 425 ug/dL 01/01/2024 11:18 PM EST [facility] Transferrin Saturation Percent 5(L) 15 - 55 % 01/01/2024 11:18 PM EST [facility] Blood Venous blood specimen / Unknown Venipuncture / Unknown 01/01/2024 10:52 AM EST 01/01/2024 10:52 AM EST Lorelei Tam MD LAB BLOOD ORDERABLES Performing Organization Address [facility] Co de Phone Number [facility]ATORY [facility] [address] [place] [address] * (ABNORMAL) CBC (01/01/2024 10:52 AM EST) WBC 4.31 4.00 - 10.80 K/uL 01/01/2024 11:07 AM EST [facility] [place] 56-02 RBC 3.78 3.85 - 5.15 M/uL 01/01/2024 11:07 AM EST [facility] [place] 56-02 HGB 8.8(L) 12.0 - 15.3 g/dL 01/01/2024 11:07 AM EST [facility] [place] 56-02 HCT 29.6(L) 36.0 - 45.2 % 01/01/2024 11:07 AM EST [facility] [place] 56-02 MCV 78.3 81.5 - 97.5 fL 01/01/2024 11:07 AM EST [facility] [place] 56-02 MCH 23.3 27.0 - 34.0 pg 01/01/2024 11:07 AM [facility] 56-02 MCHC 29.7 32.0 - 36.0 g/dL 01/01/2024 11:07 AM [facility] 56 RDW 14.9 11.5 - 15.5 % 01/01/2024 11:07 AM [facility] 56 PLT 246 140 - 400 K/uL 01/01/2024 11:07 AM [facility] 56 MPV 9.1 6.6 - 11.1 fL 01/01/2024 11:07 AM [facility] 56 Blood Venous blood specimen / Unknown Venipuncture / Unknown 01/01/2024 10:52 AM EST 01/01/2024 10:52 AM EST Lorelei Tam MD LAB BLOOD ORDERABLES Performing Organization Address City/State/[facility] Co de Phone Number [facility] 56 [address] [place] [address] documented in this encounter Visit Diagnoses Diagnosis Routine medical exam- Primary Routine general medical examination at a health care facility Hemorrhoids with complication Unspecified hemorrhoids with other complication Adenomatous polyp of colon, unspecified part of colon Eczema, unspecified type BMI 31.0-31.9,adult Body Mass Index 31.0-31.9, adult Herpes simplex virus infection Herpes simplex without mention of complication Hyperlipidemia with target LDL less than 100 Other and unspecified hyperlipidemia Iron deficiency anemia, unspecified iron deficiency anemia type PTSD (post-traumatic stress disorder) Posttraumatic stress disorder Hemorrhoids Unspecified hemorrhoids without mention of complication documented in this encounter Care Teams Machine Chain Maker Relationship Specialty Start Date End Date Lorelei Tam MD [address] [facility] [address] PCP - General Internal Medicine 12/27/22 documented as of this encounter
--- OUTSIDE RECORDS SUMMARY | 2024-02-02 06:25 | External Medical Summary | Summary of Care ---
Author Name Unknown Organization [facility] Address [address] [place] [address] Phone [phone] Care Team Providers Care Converting Technician Name Role Phone Lorelei Tam MD Primary Care Provider [phone] Reason for Visit * Reason Onset Date Comments Appointment 01/04/2024 Venofer Encounter Details Date Type Department Care Team (Late st Contact Info) Description 01/04/2024 Telephone Hematology/Oncology [facility] [address] [facility] [place] [address] Lorelei Tam MD [address] [place] [address] Appointment (Nikia) Allergies Active Allergy Reactions Criticality Noted Date Comments Pollen 04/28/2022 documented as of this encounter (statuses as of 01/04/2024) Medications Medication Sig Dispensed Refills Start Date [...] as of this encounter (statuses as of 01/04/2024) Active Problems Problem Noted Date Diagnosed Date Anemia 01/04/2024 Iron deficiency anemia 07/02/2023 Hyperlipidemia with target LDL less than 100 04/2022 Herpes simplex virus infection 04/28/2022 BMI 31.0-31.9,adult 04/28/2022 PTSD (post-traumatic stress disorder) 04/28/2022 Eczema 04/28/2022 Adenomatous polyp of colon 04/28/2022 documented as of this encounter (statuses as of 01/04/2024) Immunizations Name Administration Dates Next Due COVID-19 mRNA, LNP-s, No Pre serve, 2-Dose Series (Moderna) 10/20/2021,03/07/2021,02/07/2021 COVID-19, MRNA-LNP, 23-24, P F, 30 MCG/0.3 mL, 12 YRS AND ABOVE, IM ([facility]) 08/21/2023 Covid-19, Mrna, Lnp-s, Pf, [...] 01/04/2024 3:34 PM EST Received Venofer order. Cable plan built and routed for signature. No auth required, awaiting review. Once signed and reviewed can schedule. documented in this encounter Plan of Treatment Upcoming Encounters Date Type Department Care Team (Latest Contact Info) Description 01/12/2024 10:15 AM EST Imaging Radiology [facility] 1st [facility] [address] [facility] [place] [address] 01/21/2024 1:00 PM EST [facility] [address] [place] [address] Lorelei Tam MD 200 [facility] [place] [address] 03/25/2024 9:45 AM EDT Office Visit Dermatology [facility] [place] [address] [facility] [place] [address] Tito Escobedo MD [address] [place] [id number] 05/19/2024 7:30 AM EDT Hospital Encounter OR [facility], Operating Room, [facility] 1st Floor [address] [place] [address] Ashlyn Santo MD [address] [place], [place] [id number] 05/19/2024 7:30 AM EDT - 05/19/2024 8:45 AM EDT Surgery OR [facility], Operating Room, [facility] 1st Floor [address] [place] [address] Ashlyn Santo MD [address], [place] [id number] ANORECTAL EXAM UNDER ANESTHESIA 05/24/2024 9:00 AM EDT [facility] [address], [place] [id number] Dolly Marcos PA-C [address] [place], [place] [id number] 07/04/2024 10:40 AM EDT Office Visit Family Practice [facility] 200 [facility] [place], [place] [address] Karla Mckeon MD [address] [facility] [place] [address] Scheduled Procedures Name Priority Associated Diagnoses Date/Ti [...] filedocumented as of this encounter Care Teams Converting Technician Relationship Specialty Start Date End Date Lorelei Tam MD [address] [place] [address] PCP - General Internal Medicine 12/27/22 documented as of this encounter
--- OUTSIDE RECORDS SUMMARY | 2024-02-02 06:25 | External Medical Summary ---
Author Name Unknown Address Unknown Organization K09:[facility] [place] [address] Laboratory Report Ordering Provider Test Date Status PREETHI PAUL 01/01/2024 10:52:21 Final Observation Date Value Abnormality Reference (Units ) Status WBC, Total 01/01/2024 10:52:21 4.31 4.00-10.8 0 (K/uL) Final RBC 01/01/2024 10:52:21 3.78 3.85-5.15 (M/uL) Final Hemoglobin 01/01/2024 10:52:21 8.8 Below low normal 12 .0-15.3 (g/dL) Final HCT 01/01/2024 10:52:21 29.6 Below low normal 36. 0-45.2 (%) Final MCV 01/01/2024 10:52:21 78.3 81.5-97.5 (fL) Final MCH 01/01/2024 10:52:21 23.3 27.0-34.0 (pg) Final MCHC 01/01/2024 10:52:21 29.7 32.0-36.0 (g/dL) Final RDW 01/01/2024 10:52:21 14.9 11.5-15.5 (%) Final Platelets 01/01/2024 10:52:21 246 140-400 (K /uL) Final MPV 01/01/2024 10:52:21 9.1 6.6-11.1 ( fL) Final Performing Location [facility] [place] [address]
--- OUTSIDE RECORDS SUMMARY | 2024-02-02 06:25 | External Medical Summary | Summary of Care ---
Author Name Unknown Organization [facility] Address [address] [place] [address] Phone [phone] Care Team Providers Care Auto Rental Supervisor Name Role Phone Lorelei Tam MD Primary Care Provider Reason for Visit * Reason Onset Date Comments Allergy Injection 12/25/2023 Encounter Details Date Type Department Care Team (Late st Contact Info) Description 12/25/2023 9:30 AM EST Immunization/I njection Allergy/Immunology [facility] [address] [place] [address] Corin, Nurse Allergy [facility] [address] [place] [address] Allergic rhinitis, unspecified seasonality, unspecified trigger* Allergies Active Allergy Reactions Criticality Noted Date Comments Pollen 04/28/2022 documented as of this encounter (statuses as of 12/25/2023) Medications Medication Sig Dispensed Refills Start Date [...] as of this encounter (statuses as of 12/25/2023) Active Problems Problem Noted Date Diagnosed Date Iron deficiency anemia 07/02/2023 Hyperlipidemia with target LDL less than 100 04/2022 Herpes simplex virus infection 04/28/2022 BMI 31.0-31.9,adult 04/28/2022 PTSD (post-traumatic stress disorder) 04/28/2022 Eczema 04/28/2022 Adenomatous polyp of colon 04/28/2022 documented as of this encounter (statuses as of 12/25/2023) Immunizations Name Administration Dates Next Due COVID-19 [...] as of this encounter Progress Notes * Kandis Luna LPN - 12/25/2023 9:22 AM EST Pre-injection Questionnaire Patient identified by [...] Department Care Team (Latest Contact Info) Description 01/01/2024 10:20 AM EST Office Visit General Internal Medicine [facility] [address] [place] [address] Lorelei Tam MD [address] [facility] [place] [address] 01/12/2024 10:15 AM EST Imaging Radiology [facility] 1st [facility] [address] [place] [address] 01/21/2024 1:00 PM EST Office Visit General Internal Medicine [facility] [address] [place] [address] Lorelei Tam MD [address] [place] [address] 03/25/2024 9:45 AM EDT Office Visit Dermatology [facility] [address] [place] [address] Tito Escobedo MD [address] [place], [place] [phone] 05/19/2024 7:30 AM EDT Hospital Encounter OR [facility], Operating Room, [address] [place] [address] Ashlyn Santo MD [address] [place], [place] [phone] 05/19/2024 7:30 AM EDT - 05/19/2024 8:45 AM EDT Surgery OR [facility], Operating Room, [address] [place] [address] Ashlyn Santo MD [address] [place], [place] [phone] ANORECTAL EXAM UNDER ANESTHESIA 05/24/2024 9:00 AM EDT [facility] [address] [facility] [place] [phone] Dolly Marcos PA-C [address] [facility] [place] [phone] Scheduled Procedures Name Priority Associated Diagnoses Date/Ti me ANORECTAL EXAM UNDER ANESTHESIA Hemorrhoids 05/19/2024 7:30 AM EDT HEMORRHOIDECTOMY EXTERNAL AN D INTERNAL COMPLEX Hemorrhoids 05/19/2024 7:30 AM EDT COLONOSCOPY FLEXIBLE PROXIMA L DIAGNOSTIC Recall History of colon polyps Health Maintenance Due Date Last Done Comments DTaP,Tdap,and Td Vaccines (1 - Tdap) 1996 Pap Smear 1998 Cervical Cancer Screening 2007 HPV/Co-Test 2007 COVID-19 Vaccine (5 - 2022-24 season) 2023 11/19/2022, 10/20/2021, 03/07/2021, Additional history exists Influenza Vaccine (FLU shot) (#1) 2023 08/09/2022 Depression Screening 12/29/2023 12/29/2022 Mammogram 01/07/2024 01/07/2023, 12/24, 01/02/2023 Diabetes Screening 06/29/2026 06/29/2023, 12/27/2022 COLONOSCOPY-EVERY [...] complication documented in this encounter Care Teams Auto Rental Supervisor Relationship Specialty Start Date End Date Lorelei Tam MD [address] [place] [address] PCP - General Internal Medicine 12/27/22 documented as of this encounter
--- OUTSIDE RECORDS SUMMARY | 2024-02-02 06:25 | External Medical Summary ---
Author Name Unknown Address Unknown Organization K01:LABORATORY [facility] - [address] [place] [id number] Laboratory Report Ordering Provider Test Date Status PREETHI PAUL 01/01/2024 10:52:21 Final Observation Date Value Abnormality Reference (Units ) Status Ferritin 01/01/2024 10:52:21 5 Below low normal 13- 150 (ng/mL) Final Postmenopausal women have hi gher ferritin levels than pre-menopausal women. The above reference interval is based on pre-menopausal women. Performing Location LABORATORY [facility] - [address] [place] [id number]
--- OUTSIDE RECORDS SUMMARY | 2024-02-02 06:25 | External Medical Summary | Summary of Care ---
Author Name Unknown Organization [facility] Address [address] [place] [address] Phone [phone] Care Team Providers Care Dancer Or Choreographer Name Role Phone Lorelei Tam MD Primary Care Provider [phone] Reason for Visit * Reason Comments Outpatient Testing Encounter Details Date Type Department Care Team (Late st Contact Info) Description 01/01/2024 10:50 AM EST Laboratory Laboratory [facility] [address] [place] [phone] [facility] 200 [place] [address] Iron deficiency anemia, unspecified iron deficiency anemia type; Hyperlipidemia with target LDL less than 100 Allergies Active Allergy Reactions Criticality Noted Date Comments Pollen 04/28/2022 documented as of this encounter (statuses as of 01/01/2024) Medications Medication Sig Dispensed Refills Start Date [...] as of this encounter (statuses as of 01/01/2024) Active Problems Problem Noted Date Diagnosed Date Iron deficiency anemia 07/02/2023 Hyperlipidemia with target LDL less than 100 04/2022 Herpes simplex virus infection 04/28/2022 BMI 31.0-31.9,adult 04/28/2022 PTSD (post-traumatic stress disorder) 04/28/2022 Eczema 04/28/2022 Adenomatous polyp of colon 04/28/2022 documented as of this encounter (statuses as of 01/01/2024) Immunizations Name Administration Dates Next Due COVID-19 mRNA, LNP-s, No Pre serve, 2-Dose Series (Moderna) 10/20/2021,03/07/2021,02/07/2021 COVID-19, MRNA-LNP, 23-24, P F, 30 MCG/0.3 mL, 12 YRS AND ABOVE, IM ([employer]) 08/21/2023 Covid-19, Mrna, Lnp-s, Pf, B ivalent, [...] Description 01/12/2024 10:15 AM EST Imaging Radiology [facility] 1st [facility] [address] 01/21/2024 1:00 PM EST Office Visit General Internal Medicine [facility] [address] [place] [address] Lorelei Tam MD [address] [place] [address] 03/25/2024 9:45 AM EDT Office Visit Dermatology [facility] [address] [place] [address] Tito Escobedo MD [address] [place] [address] 05/19/2024 7:30 AM EDT Hospital Encounter OR [facility], Operating Room, [facility] 1st [facility] [address] [place] [address] Ashlyn Santo MD [address] [place] [address] 05/19/2024 7:30 AM EDT - 05/19/2024 8:45 AM EDT Surgery OR [facility], Operating Room, [facility] 1st Floor [address] [place] [address] Ashlyn Santo MD [address] [place] [address] ANORECTAL EXAM UNDER ANESTHESIA 05/24/2024 9:00 AM EDT Office Visit General Surgery, [place] [address] [place] [address] Dolly Marcos PA-C [address] [place] [address] 07/04/2024 10:40 AM EDT Office Visit Family Practice [facility] Corin Cochrane 200 [place] [address] Karla Mckeon MD [address] [place] [address] Pending Results Name Type Priority Associated Diagnoses Date /Time IRON SCREEN, INCLUDING TIBC Lab Routine Iron deficiency anemia, unspecified iron deficiency anemia type 01/01/2024 10:52 AM EST FERRITIN Lab Routine Iron deficiency anemia, unspecified iron deficiency anemia type 01/01/2024 10:52 AM EST COMPREHENSIVE METABOLIC PANEL Lab Routine Hyperlipidemia with target LDL less than 100 01/01/2024 10:52 AM EST LIPID PANEL WITH DIRECT LDL IF TG IS HIGH Lab Routine Hyperlipidemia with target LDL less than 100 01/01/2024 10:52 AM EST Scheduled Procedures Name Priority Associated Diagnoses Date/Ti [...] 01/02/2023 Depression Screening 01/01/2025 01/01/2024 Diabetes Screening 06/29/2026 06/29/2023, 12/27/2022 COLONOSCOPY-EVERY 5 [...] Not on filedocumented as of this encounter Procedures Procedure Name Priority Date/Time Associated Diagnosis Comments CBC Routine 01/01/2024 10:52 AM EST Iron deficiency anemia, unspecified iron deficiency anemia type documented in this encounter Results * (ABNORMAL) CBC (01/01/2024 10:52 AM EST) WBC 4.31 4.00 - 10.80 K/uL 01/01/2024 11:07 AM EST [facility] 56-02 RBC 3.78 3.85 - 5.15 M/uL 01/01/2024 11:07 AM EST [facility] 56-02 HGB 8.8(L) 12.0 - 15.3 g/dL 01/01/2024 11:07 AM EST [facility] [place] 56-02 HCT 29.6(L) 36.0 - 45.2 % 01/01/2024 11:07 AM EST [facility] [place] 56-02 MCV 78.3 81.5 - 97.5 fL 01/01/2024 11:07 AM [facility] 56 MCH 23.3 27.0 - 34.0 pg 01/01/2024 11:07 AM [facility] 56 MCHC 29.7 32.0 - 36.0 g/dL 01/01/2024 11:07 AM [facility] 56 RDW 14.9 11.5 - 15.5 % 01/01/2024 11:07 AM [facility] 56 PLT 246 140 - 400 K/uL 01/01/2024 11:07 AM [facility] 56 MPV 9.1 6.6 - 11.1 fL 01/01/2024 11:07 AM [facility] 56 Blood Venous blood specimen / Unknown Venipuncture / Unknown 01/01/2024 10:52 AM EST 01/01/2024 10:52 AM EST Lorelei Tam MD LAB BLOOD ORDERABLES Performing Organization Address City/State/[facility] Co de Phone Number [facility] 56 [address] [facility] [address] documented in this encounter Visit Diagnoses Diagnosis Iron deficiency anemia, unspecified iron deficiency anemia type Hyperlipidemia with target LDL less than 100 Other and unspecified hyperlipidemia Hemorrhoids Unspecified hemorrhoids without mention of complication documented in this encounter Care Teams Dancer Or Choreographer Relationship Specialty Start Date End Date Lorelei Tam MD 200 [facility] [address] PCP - General Internal Medicine 12/27/22 documented as of this encounter
--- OUTSIDE RECORDS SUMMARY | 2024-02-02 06:25 | External Medical Summary | Summary of Care ---
Author Name Unknown Organization [facility] Address [address] [place] [address] Phone [phone] Care Team Providers Care Aba Tutor Name Role Phone Lorelei Tam MD Primary Care Provider [phone] Encounter Details Date Type Department Care Team (Late st Contact Info) Description 01/04/2024 Orders Only Hematology/Oncology [facility] 200 [facility] [place] [address] Lorelei Tam MD 200 [place] [address] Allergies Active Allergy Reactions Criticality Noted Date [...] MCG/0.3 mL, 12 YRS AND ABOVE, IM ([facility]) 08/21/2023 Covid-19, Mrna, Lnp-s, Pf, [...] Description 01/12/2024 10:15 AM EST Imaging Radiology [address] [address] 01/21/2024 1:00 PM EST Office Visit General Internal Medicine [facility] [address] [place] [address] Lorelei Tam MD [address] [place] [address] 03/25/2024 9:45 AM EDT Office Visit Dermatology [facility] [address] [place] [address] Tito Escobedo MD [address] [place] [address] 05/19/2024 7:30 AM EDT Hospital Encounter OR [facility], Operating Room, [facility] 1st Floor [address] [place] [address] Ashlyn Santo MD [address] [place], [place] [phone] 05/19/2024 7:30 AM EDT - 05/19/2024 8:45 AM EDT Surgery OR [facility], Operating Room, [facility] 1st Floor [address] [place] [address] Ashlyn Santo MD [address] [place], [place] [phone] ANORECTAL EXAM UNDER ANESTHESIA 05/24/2024 9:00 AM EDT Office Visit General Surgery, [place] [address] [place] [address] Dolly Marcos PA-C [address] [place], [place] [phone] 07/04/2024 10:40 AM EDT Office Visit Family Practice [facility] 200 [facility] [place] [address] Karla Mckeon MD 200 [place] [address] Scheduled Procedures Name Priority Associated Diagnoses Date/Ti [...] filedocumented as of this encounter Care Teams Aba Tutor Relationship Specialty Start Date End Date Lorelei Tam MD 200 [facility] [place] [address] PCP - General Internal Medicine 12/27/22 documented as of this encounter
--- OUTSIDE RECORDS SUMMARY | 2024-02-02 06:25 | External Medical Summary ---
Author Name Unknown Address Unknown Organization K01[facility] [place] [address] [facility] [address] Laboratory Report Ordering Provider Test Date Status PREETHI PAUL 01/01/2024 10:52:21 Final Observation Date Value Abnormality Reference (Units ) Status Triglyceride 01/01/2024 10:52:21 78 <=174 ( mg/dL) Final Triglyceride Reference Range s (mg/dL):
<150 Acceptable
150-174 Borderline high
175-499 High
>=500 Very high Cholesterol 01/01/2024 10:52:21 168 <200 (mg /dL) Final Total Cholesterol Reference Ranges (mg/dL):
<200 Desirable
200-239 Borderline high
>=240 High HDL 01/01/2024 10:52:21 62 >49 (mg/dL ) Final HDL Cholesterol Reference Ra nges (mg/dL):
>=60 High (Desirable)
<50 Low (Undesirable) For Females
<40 Low (Undesirable) For Males NON-HDL CHOLESTEROL 01/01/2024 10:52:21 106 <=159 (mg/dL) Final Non-HDL Cholesterol Referenc e Range (mg/dL):
<100 Target level for high risk ASCVD patient
<130 Optimal for general population
130-159 Near optimal for general population
160-189 Borderline High
190-219 High
>=220 Very High LDL, (calculated) 01/01/2024 10:52:21 90 <= 129 (mg/dL) Final LDL Cholesterol Reference Ra nges (mg/dL):
<70 Target level for high risk ASCVD patient
<100 Optimal for general population
100-129 Near optimal for general population
130-159 Borderline high
160-189 High
>=190 Very high Performing Location [facility] [place] [address] [facility] [address]
--- OUTSIDE RECORDS SUMMARY | 2024-02-02 06:26 | External Medical Summary | Summary of Care ---
Author Name Unknown Organization [facility] Address [address] [place] [address] Phone [phone] Care Team Providers Care Coding Coordinator Name Role Phone Lorelei Tam MD Primary Care Provider Reason for Visit * Reason Onset Date Comments Advice 12/07/2023 script Encounter Details Date Type Department Care Team (Late st Contact Info) Description 12/07/2023 Telephone General Surgery, [place] [address] [place], [place] [phone] Ashlyn Santo MD [address] [place], [place] [phone] Advice (script) Allergies Active Allergy Reactions Criticality Noted Date Comments Pollen 04/28/2022 documented as of this encounter (statuses as of 12/07/2023) Medications Medication Sig Dispensed Refills Start Date [...] as of this encounter (statuses as of 12/07/2023) Active Problems Problem Noted Date Diagnosed Date Iron deficiency anemia 07/02/2023 Hyperlipidemia with target LDL less than 100 04/2022 Herpes simplex virus infection 04/28/2022 BMI 31.0-31.9,adult 04/28/2022 PTSD (post-traumatic stress disorder) 04/28/2022 Eczema 04/28/2022 Adenomatous polyp of colon 04/28/2022 documented as of this encounter (statuses as of 12/07/2023) Immunizations Name Administration Dates Next Due COVID-19 mRNA, LNP-s, No Pre serve, 2-Dose Series (Moderna) 10/20/2021,03/07/2021,02/07/2021 Covid-19, Mrna, Lnp-s, Pf, B ivalent, 30 Mcg, IM, 12 yrs and above ([employer]) 11/19/2022 Hepatitis B, 20+ yrs 07/06/2023,02/04/2023,01/05 Seasonal [...] encounter Miscellaneous Notes * Telephone Encounter - Eddi Law OSA - 12/07/2023 4:44 PM EST Burton from [facility].coming pharmacy called. Needs clarification on script sent by Dr Santo for "Rectal Ice Rocket" Please call pharmacy compounding dept at [phone] after 830am Thursday Thanks ASHLY Durham documented in this encounter Plan of Treatment Upcoming Encounters Date Type Department Care Team (Latest Contact Info) Description 12/10/2023 3:30 PM EST Immunization/Injec tion Allergy/Immunology [facility] [address] [place] [address] Corin Nurse Allergy [facility] [address] [place] [address] 01/01/2024 10:20 AM EST Office Visit General Internal Medicine [facility] [address] [place] [address] Lorelei Tam MD [address] [facility] [place] [address] 01/12/2024 10:15 AM EST Imaging Radiology [address], [place] 132 [facility] [place] [address] 01/21/2024 1:00 PM EST Office Visit General Internal Medicine [facility] [address] [place] [address] Lorelei Tam MD [address] [place] [address] 03/25/2024 9:45 AM EDT Office Visit Dermatology [facility] 200 [facility] [place] [address] Tito Escobedo MD [address] [place], [place] [phone] 05/19/2024 7:30 AM EDT Hospital Encounter OR [facility], Operating Room, [facility] 1st Floor [address] [place] [address] Ashlyn Santo MD [address] [place], [place] [phone] 05/19/2024 7:30 AM EDT - 05/19/2024 8:45 AM EDT Surgery OR [facility], Operating Room, [facility] 1st Floor [address] [place] [address] Ashlyn Santo MD [address] [place], [place] [phone] ANORECTAL EXAM UNDER ANESTHESIA 05/24/2024 9:00 AM EDT [facility] [address] [place], [place] [phone] Dolly Marcos PA-C [address] [place], [place] [phone] Scheduled Procedures Name Priority Associated Diagnoses Date/Ti me ANORECTAL EXAM UNDER ANESTHESIA Hemorrhoids 05/19/2024 7:30 AM EDT HEMORRHOIDECTOMY EXTERNAL AN D INTERNAL COMPLEX Hemorrhoids 05/19/2024 7:30 AM EDT COLONOSCOPY FLEXIBLE PROXIMA L DIAGNOSTIC Recall History of colon polyps Health Maintenance Due Date Last Done Comments DTaP,Tdap,and Td Vaccines (1 - Tdap) 1996 Pap Smear 1998 Cervical Cancer Screening 2007 HPV/Co-Test 2007 COVID-19 Vaccine ( season) 2023 11/19/2022, 10/20/2021, 03/07/2021, Additional history [...] filedocumented as of this encounter Care Teams Coding Coordinator Relationship Specialty Start Date End Date Lorelei Tam MD 200 [facility] [place] [address] PCP - General Internal Medicine 12/27/22 documented as of this encounter
--- OUTSIDE RECORDS SUMMARY | 2024-02-02 06:26 | External Medical Summary | Summary of Care ---
Author Name Unknown Organization [facility] Address [address] [place] [address] Phone [phone] Care Team Providers Care Dynamometer Mechanic Name Role Phone Lorelei Tam MD Primary Care Provider [phone] Reason for Visit * Reason Comments Follow Up L shoulder Encounter Details Date Type Department Care Team (Late st Contact Info) Description 11/25/2023 8:45 AM EST Office Visit Orthopaedics [facility] [address] [facility] [place] [address] Carlito Delacruz PA-C [address] [facility] [place] [address] Calcific tendinitis of left shoulder* Allergies Active Allergy Reactions Criticality Noted Date Comments Pollen 04/28/2022 documented as of this encounter (statuses as of 11/25/2023) Medications Medication Sig Dispensed Refills Start Date [...] as of this encounter (statuses as of 11/25/2023) Active Problems Problem Noted Date Diagnosed Date Iron deficiency anemia 07/02/2023 Hyperlipidemia with target LDL less than 100 04/2022 Herpes simplex virus infection 04/28/2022 BMI 31.0-31.9,adult 04/28/2022 PTSD (post-traumatic stress disorder) 04/28/2022 Eczema 04/28/2022 Adenomatous polyp of colon 04/28/2022 documented as of this encounter (statuses as of 11/25/2023) Immunizations Name Administration Dates Next Due COVID-19 [...] as of this encounter Progress Notes * Carlito Delacruz PA-C - 11/25/2023 8:06 AM EST Six week follow-up for left shoulder pain secondary to calcific tendinitis. Recommended conservative treatment, including physical therapy, ice, rest, NSAIDs, behavior modification and further time. Patient reports 90-95% improvement with the thinning formal physical therapy 2 days a week. Icing and using NSAIDs as well. Pleased with her results. [place] like she is beginning to experience similar symptoms in the right shoulder and physical therapy immediately address this and beginning treating both. She feels like she is doing well. No further questions or concerns. Would like to transition tohome therapy exercises she is learned. She feels comfortable doing that per her report. complete review of systems negative General: alert and oriented x3 female, no acute distress, appears currently stated age, pleasant, well nourished Skin: Left upper extremity including shoulder does not reveal any erythema, ecchymosis, abrasion, laceration, skin breakdown otherwise Neurovascular: Left upper extremity reveals distal pulses +2, capillary refill is under 2 seconds, good sensation light touch, +5 budget clerk strength, axillary median ulnar radial nerve assess fully intact Musculoskeletal: LEFT SHOULDER: Forward Flexion: 180 degrees Abduction: 180 degrees External rotation at 90 degrees abduction: 90 degrees Internal rotation at 90 degrees abduction: 90 degrees External rotation at 0 degrees: 70 degrees Internal Rotation: T7 Strength: Forward flexion: 5/5 Abduction: 5/5 External Rotation: 5/5 Internal Rotation: 5/5 Speed test: negative Yergason's: negative Tender to palpation ACJ (acromioclavicular joint): negative Tender to palpation LHB (long head of biceps): negative Sears test: negative [place] test: negative Hornblower: negative Lift off: negative Belly Press: negative Bear Hug: negative External lag sign: negative Cross-body adduction: negative Sulcus sign: negative Impression: Left shoulder calcific tendinitis, much improved Plan: Today 's findings were discussed with the patient. They were educated regarding their diagnosis. Multiple treatment options discussed and agreed upon, including completing her physical therapy.She may continue with conservative measures such as ice treatment and NSAIDs with food as tolerable. Again, she would like to transition to doing her exercises at home and feels like she has enough equipment and has learned the exercises where that would be beneficial and I feel that is fine, especially with her report of 90-94% improvement. She will continue with treatments on her right shoulderas well. She can follow up as needed. No need for an MRI at this point. The patient has no other questions or concerns. Pleased with today 's care. Call sooner if needed. This chart was completed in part utilizing [employer] Speech Voice Recognition Software. Grammatical errors, random word insertions, prounoun errors, and incomplete sentences are an occasional consequence of this system due to software limitations, ambient noise, and hardware issues. Any formal questions or concerns about the content, text, or information contained within the body of this dictation should be directly addressed to the provider for clarification. documented in this encounter Nursing Notes * Shazia Jorgensen LPN - 11/25/2023 8:06 AM EST Pt presents for 6 week follow up L shoulder, went to PT, feels she is at 90-95%. Now having the same pain in R shoulder, working on R shoulder at PT x 3 weeks, + helpful. Noticing more popping and cracking when moving the R shoulder (did not have this in the L) uses ice packs to both shoulders. documented in this encounter Plan of Treatment Upcoming Encounters Date Type Department Care Team (Latest Contact Info) Description 11/26/2023 3:30 PM EST Immunization/Injec tion Allergy/Immunology [facility] [address] [place], [place] [address] [place], Nurse Allergy Scenery [address] [place] [address] 12/03/2023 3:45 PM EST Immunization/Injec tion Allergy/Immunology [facility] [address] [place] [address] [place], Nurse Allergy Scenery [address] [place] [address] 12/10/2023 3:30 PM EST Immunization/Injec tion Allergy/Immunology [facility] [address] [place] [address] [place], Nurse Allergy Scenery [address] [place] [address] 01/01/2024 10:20 AM EST Office Visit General Internal Medicine [facility] [address] [place] [address] Lorelei Tam MD [address] [place] [address] 01/12/2024 10:15 AM EST Imaging Radiology [address] [place] [address] 01/21/2024 1:00 PM EST Office Visit General Internal Medicine [facility] [address] [place] [address] Lorelei Tam MD [address] [place] [address] 03/25/2024 9:45 AM EDT Office Visit Dermatology [facility] [address] [place] [address] Tito Escobedo MD [address] [place] [address] 05/19/2024 7:30 AM EDT Hospital Encounter OR [facility], Operating Room, [facility] 1st Floor [address] [place] [address] Ashlyn Santo MD [address] [place] [address] 05/19/2024 7:30 AM EDT - 05/19/2024 8:45 AM EDT Surgery OR [facility], Operating Room, [facility] 1st Floor [address] [place] [address] Ashlyn Santo MD [address] [place], [place] [id number] ANORECTAL EXAM UNDER ANESTHESIA 05/24/2024 9:00 AM EDT Office Visit General Surgery, [place] [address] [place], [place] [id number] Dolly Marcos PA-C [address] [place], [place] [phone] Pending Results Name Type Priority Associated Diagnoses Date /Time XR SHOULDER, 2 OR MORE VIEWS Medical Imaging Routine 11/25/2023 8:14 AM EST Scheduled Procedures Name Priority Associated [...] as of this encounter Visit Diagnoses Diagnosis Calcific tendinitis of left shoulder- Primary Calcifying tendinitis of shoulder Hemorrhoids Unspecified hemorrhoids without mention of complication documented in this encounter Care Teams Dynamometer Mechanic Relationship Specialty Start Date End Date Lorelei Tam MD 200 [facility] [place] [address] PCP - General Internal Medicine 12/27/22 documented as of this encounter
--- OUTSIDE RECORDS SUMMARY | 2024-02-02 06:26 | External Medical Summary | Summary of Care ---
Author Name Unknown Organization [facility] Address [address] [place] [address] Phone [phone] Care Team Providers Care Dispatcher Tugboat Name Role Phone Lorelei Tam MD Primary Care Provider [phone] Reason for Visit * Reason Onset Date Comments Allergy Injection 11/24/2023 Encounter Details Date Type Department Care Team (Late st Contact Info) Description 11/24/2023 3:30 PM EST Nurse Only Allergy/Immunology [facility] [address] [place] [address] Corin Nurse Allergy [facility] [address] [place] [address] Allergy Injection Allergies Active Allergy Reactions Criticality Noted Date Comments Pollen 04/28/2022 documented as of this encounter (statuses as of 11/24/2023) Medications Medication Sig Dispensed Refills Start Date [...] as of this encounter (statuses as of 11/24/2023) Active Problems Problem Noted Date Diagnosed Date Iron deficiency anemia 07/02/2023 Hyperlipidemia with target LDL less than 100 04/2022 Herpes simplex virus infection 04/28/2022 BMI 31.0-31.9,adult 04/28/2022 PTSD (post-traumatic stress disorder) 04/28/2022 Eczema 04/28/2022 Adenomatous polyp of colon 04/28/2022 documented as of this encounter (statuses as of 11/24/2023) Immunizations Name Administration Dates Next Due COVID-19 mRNA, LNP-s, No Pre serve, 2-Dose Series (Moderna) 10/20/2021,03/07/2021,02/07/2021 Covid-19, Mrna, Lnp-s, Pf, B ivalent, 30 Mcg, IM, 12 yrs and above ([facility]) 11/19/2022 Hepatitis B, 20+ yrs 07/06/2023,02/04/2023,01/05 Seasonal [...] Progress Notes * Kandis Luna LPN - 11/24/2023 4:26 PM EST Pre-injection Questionnaire Patient identified by stating [...] Department Care Team (Latest Contact Info) Description 11/25/2023 8:45 AM EST Office Visit Orthopaedics [facility] [address] [place] [address] Carlito Delacruz PA-C [address] [place] [address] 11/26/2023 3:30 PM EST Immunization/Injec tion Allergy/Immunology [facility] [address] [place], [place] [address] [place], Nurse Allergy Scenery [address] [place], [place] [address] 12/03/2023 3:45 PM EST Immunization/Injec tion Allergy/Immunology [facility] [place] [address] [place], [place] [address] Corin, Nurse Allergy Scenery [address] [place] [address] 12/10/2023 3:30 PM EST Immunization/Injec tion Allergy/Immunology [facility] [place] [address] [place] [address] [place], Nurse Allergy Scenery [address] [place] [address] 01/01/2024 10:20 AM EST Office Visit General Internal Medicine [facility] [address] [place] [address] Lorelei Tam MD [address] [facility] [place] [address] 01/12/2024 10:15 AM EST Imaging Radiology [address] [place] [address] 01/21/2024 1:00 PM EST Office Visit General Internal Medicine [facility] [address] [place] [address] Lorelei Tam MD [address] [facility] [place] [address] 03/25/2024 9:45 AM EDT Office Visit Dermatology [facility] [address] [place] [address] Tito Escobedo MD [address] [place] [address] 05/19/2024 7:30 AM EDT Hospital Encounter OR [facility], Operating Room, [facility] 1st Floor [address] [place] [address] Ashlyn Santo MD [address] [place] [address] 05/19/2024 7:30 AM EDT - 05/19/2024 8:45 AM EDT Surgery OR [facility], Operating Room, [facility] 1st Floor [address] [place] [address] Ashlyn Santo MD [address] [place], [place] [phone] ANORECTAL EXAM UNDER ANESTHESIA 05/24/2024 9:00 AM EDT [facility] [address] [place], [place] [phone] Dolly Marcos PA-C [address] [place], [place] [phone] Scheduled Procedures Name Priority Associated Diagnoses Date/Ti me ANORECTAL EXAM UNDER ANESTHESIA Hemorrhoids 05/19/2024 7:30 AM EDT HEMORRHOIDECTOMY EXTERNAL AN D INTERNAL COMPLEX Hemorrhoids 05/19/2024 7:30 AM EDT COLONOSCOPY FLEXIBLE PROXIMA L DIAGNOSTIC Recall History of colon polyps Health Maintenance Due Date Last Done Comments DTaP,Tdap,and Td Vaccines (1 - Tdap) 1996 Pap Smear 1998 Cervical Cancer Screening 2007 HPV/Co-Test 2007 COVID-19 Vaccine (2022- season) 2023 11/19/2022, 10/20/2021, 03/07/2021, Additional history [...] complication documented in this encounter Care Teams Dispatcher Tugboat Relationship Specialty Start Date End Date Lorelei Tam MD 200 [place] [address] PCP - General Internal Medicine 12/27/22 documented as of this encounter
--- OUTSIDE RECORDS SUMMARY | 2024-02-02 06:26 | External Medical Summary | Summary of Care ---
Author Name Unknown Organization [facility] Address [address] [place] [address] Phone [phone] Care Team Providers Care Scientific Diver Name Role Phone Lorelei Tam MD Primary Care Provider [phone] Reason for Visit * Reason Comments Follow Up L shoulder Encounter Details Date Type Department Care Team (Late st Contact Info) Description 11/25/2023 8:45 AM EST Office Visit Orthopaedics [facility] [address] [facility] [place] [address] Carlito Delacruz PA-C [address] [facility] [place] [address] Calcific tendinitis of left shoulder* Allergies Active [...] NSAIDs as well. Pleased with her results. [place] like she is beginning to experience similar [...] 2 seconds, good sensation light touch, +5 orthopedic rn strength, axillary median ulnar radial nerve assess [...] head of biceps): negative Sears test: negative [place] test: negative Hornblower: negative Lift off: negative [...] This chart was completed in part utilizing [employer] Speech Voice Recognition Software. Grammatical errors, random [...] 11/26/2023 3:30 PM EST Immunization/Injec tion Allergy/Immunology [facility] [address] [place], [place] [address] [place], Nurse Allergy Scenery [address] [place] [address] 12/03/2023 3:45 PM EST Immunization/Injec tion Allergy/Immunology [facility] [place] [address] [place] [address] [place], Nurse Allergy Scenery [address] [place] [address] 12/10/2023 3:30 PM EST Immunization/Injec tion Allergy/Immunology [facility] [place] [address] [place] [address] [place], Nurse Allergy Scenery [address] [place] [address] 01/01/2024 10:20 AM EST Office Visit General Internal Medicine [facility] [address] [place] [address] Lorelei Tam MD [address] [place] [address] 01/12/2024 10:15 AM EST Imaging Radiology [address] [place] [address] 01/21/2024 1:00 PM EST Office Visit General Internal Medicine [facility] [address] [place] [address] Lorelei Tam MD [address] [place] [address] 03/25/2024 9:45 AM EDT Office Visit Dermatology [facility] [address] [place] [address] Tito Escobedo MD [address] [place] [address] 05/19/2024 7:30 AM EDT Hospital Encounter OR [facility], Operating Room, [facility] 1st Floor [address] [place] [address] Ashlyn Santo MD [address] [place] [address] 05/19/2024 7:30 AM EDT - 05/19/2024 8:45 AM EDT Surgery OR [facility], Operating Room, [facility] 1st Floor [address] [place] [address] Ashlyn Santo MD [address] [place], [place] [phone] ANORECTAL EXAM UNDER ANESTHESIA 05/24/2024 9:00 AM EDT Office Visit General Surgery, [place] [address] [place], [place] [phone] Dolly Marcos PA-C [address] [place], [place] [phone] Pending Results Name Type Priority Associated Diagnoses [...] complication documented in this encounter Care Teams Scientific Diver Relationship Specialty Start Date End Date Lorelei Tam MD 200 [facility] [place] [address] PCP - General Internal Medicine 12/27/22 documented as of this encounter
--- OUTSIDE RECORDS SUMMARY | 2024-02-02 06:26 | External Medical Summary | Summary of Care ---
Author Name Unknown Organization [facility] Address [address] [place] [address] Phone [phone] Care Team Providers Care Equipment Lead Name Role Phone Lorelei Tam MD Primary Care Provider [phone] Reason for Visit * Reason Onset Date Comments Allergy Injection 11/17/2023 Encounter Details Date Type Department Care Team (Late st Contact Info) Description 11/17/2023 9:30 AM EST Immunization/I njection Allergy/Immunology [facility] [address] [place] [address] [place], Nurse Allergy [facility] [address] [place] [address] Allergic rhinitis, unspecified seasonality, unspecified trigger* Allergies Active Allergy Reactions Criticality Noted Date Comments Pollen 04/28/2022 documented as of this encounter (statuses as of 11/17/2023) Medications Medication Sig Dispensed Refills Start Date [...] as of this encounter (statuses as of 11/17/2023) Active Problems Problem Noted Date Diagnosed Date Iron deficiency anemia 07/02/2023 Hyperlipidemia with target LDL less than 100 04/2022 Herpes simplex virus infection 04/28/2022 BMI 31.0-31.9,adult 04/28/2022 PTSD (post-traumatic stress disorder) 04/28/2022 Eczema 04/28/2022 Adenomatous polyp of colon 04/28/2022 documented as of this encounter (statuses as of 11/17/2023) Immunizations Name Administration Dates Next Due COVID-19 [...] Progress Notes * Kandis Luna LPN - 11/17/2023 10:36 AM EST Pre-injection Questionnaire Patient identified by [...] Visit Orthopaedics [facility] [address] [place] [address] Carlito Delacruz PA-C [address] [place] [address] 01/01/2024 10:20 AM EST Office Visit General Internal Medicine [facility] [place] [address] [place] [address] Lorelei Tam MD [address] [place] [address] 01/12/2024 10:15 AM EST Imaging Radiology [address] 132 [facility] [place] [address] 01/21/2024 1:00 PM EST Office Visit General Internal Medicine [facility] [address] [place] [address] Lorelei Tam MD [address] [facility] [place] [address] 03/25/2024 9:45 AM EDT Office Visit Dermatology [facility] [address] [place] [address] Tito Escobedo MD [address] [place] [address] 05/19/2024 7:30 AM EDT Hospital Encounter OR [facility], Operating Room, [address] [place] [address] Ashlyn Santo MD [address] [place], [place] [phone] 05/19/2024 7:30 AM EDT - 05/19/2024 8:45 AM EDT Surgery OR [facility], Operating Room, [address] [place] [address] Ashlyn Santo MD [address] [place], [place] [phone] ANORECTAL EXAM UNDER ANESTHESIA 05/24/2024 9:00 AM EDT Office Visit [facility] [address] [place] [address] Dolly Marcos PA-C [address] [place] [address] Scheduled Procedures Name Priority Associated Diagnoses Date/Ti [...] complication documented in this encounter Care Teams Equipment Lead Relationship Specialty Start Date End Date Lorelei Tam MD 200 [facility] [place] [address] PCP - General Internal Medicine 12/27/22 documented as of this encounter
--- OUTSIDE RECORDS SUMMARY | 2024-02-02 06:26 | External Medical Summary | Summary of Care ---
Author Name Unknown Organization [facility] Address [address] [place] [address] Phone [phone] Care Team Providers Care Fitter Welder Name Role Phone Lorelei Tam MD Primary Care Provider [phone] Reason for Visit * Reason Onset Date Comments Allergy Injection 12/03/2023 Encounter Details Date Type Department Care Team (Late st Contact Info) Description 12/03/2023 3:45 PM EST Immunization/I njection Allergy/Immunology [facility] [address] [place] [address] [place]in, Nurse Allergy [facility] 200 [place] [address] Allergic rhinitis, unspecified seasonality, unspecified trigger* Allergies Active Allergy Reactions Criticality Noted Date Comments Pollen 04/28/2022 documented as of this encounter (statuses as of 12/03/2023) Medications Medication Sig Dispensed Refills Start Date [...] as of this encounter (statuses as of 12/03/2023) Active Problems Problem Noted Date Diagnosed Date Iron deficiency anemia 07/02/2023 Hyperlipidemia with target LDL less than 100 04/2022 Herpes simplex virus infection 04/28/2022 BMI 31.0-31.9,adult 04/28/2022 PTSD (post-traumatic stress disorder) 04/28/2022 Eczema 04/28/2022 Adenomatous polyp of colon 04/28/2022 documented as of this encounter (statuses as of 12/03/2023) Immunizations Name Administration Dates Next Due COVID-19 [...] Progress Notes * Heike Serrano LPN - 12/03/2023 3:33 PM EST Pre-injection Questionnaire Patient identified by [...] 12/10/2023 3:30 PM EST Immunization/Injec tion Allergy/Immunology [facility] [place] [address] [place] [address] Cor[place] Nurse Allergy [facility] [address] [place] [address] 01/01/2024 10:20 AM EST Office Visit General Internal Medicine [facility] [address] [place] [address] Lorelei Tam MD [address] [place] [address] 01/12/2024 10:15 AM EST Imaging Radiology [address] [facility] [address] 01/21/2024 1:00 PM EST Office Visit General Internal Medicine [facility] [address] [place] [address] Lorelei Tam MD [address] [place] [address] 03/25/2024 9:45 AM EDT Office Visit Dermatology [facility] [address] [place] [address] Tito Escobedo MD [address] [place] [address] 05/19/2024 7:30 AM EDT Hospital Encounter OR [facility], Operating Room, [place] [address] [place] [address] Ashlyn Santo MD [address] [place], [place] [phone] 05/19/2024 7:30 AM EDT - 05/19/2024 8:45 AM EDT Surgery OR [facility], Operating Room, [address] [place] [address] Ashlyn Santo MD [address] [place], [place] [phone] ANORECTAL EXAM UNDER ANESTHESIA 05/24/2024 9:00 AM EDT Office Visit General [facility] [address] [place], [place] [phone] Dolly Marcos PA-C [address] [place] [address] Scheduled Procedures Name Priority Associated Diagnoses Date/Ti [...] complication documented in this encounter Care Teams Fitter Welder Relationship Specialty Start Date End Date Lorelei Tam MD 200 [place] [address] PCP - General Internal Medicine 12/27/22 documented as of this encounter
--- OUTSIDE RECORDS SUMMARY | 2024-02-02 06:26 | External Medical Summary | Summary of Care ---
Author Name Unknown Organization [facility] Address [address] [place] [address] Phone [phone] Care Team Providers Care Professor Of Graphic Design Name Role Phone Lorelei Tam MD Primary Care Provider [phone] Reason for Visit * Reason Onset Date Comments Advice 12/07/2023 script Encounter Details Date Type Department Care Team (Late st Contact Info) Description 12/07/2023 Telephone General Surgery, [place] [address], [place] [phone] Ashlyn Santo MD [address], [place] [phone] Advice (script) Allergies Active Allergy Reactions Criticality Noted Date Comments Pollen 04/28/2022 documented as of this encounter (statuses as of 12/08/2023) Medications Medication Sig Dispensed Refills Start Date [...] as of this encounter (statuses as of 12/08/2023) Active Problems Problem Noted Date Diagnosed Date Iron deficiency anemia 07/02/2023 Hyperlipidemia with target LDL less than 100 04/2022 Herpes simplex virus infection 04/28/2022 BMI 31.0-31.9,adult 04/28/2022 PTSD (post-traumatic stress disorder) 04/28/2022 Eczema 04/28/2022 Adenomatous polyp of colon 04/28/2022 documented as of this encounter (statuses as of 12/08/2023) Immunizations Name Administration Dates Next Due COVID-19 mRNA, LNP-s, No Pre serve, 2-Dose Series (Moderna) 10/20/2021,03/07/2021,02/07/2021 Covid-19, Mrna, Lnp-s, Pf, B ivalent, 30 Mcg, IM, 12 yrs and above (Wellkeeper) 11/19/2022 Hepatitis B, 20+ yrs 07/06/2023,02/04/2023,01/05 Seasonal [...] encounter Miscellaneous Notes * Telephone Encounter - Elisa Mcelroy LPN - 12/08/2023 9:29 AM EST Returned call to [facility] and after talking with Dr. Santo medication clarified. * Telephone Encounter - Eddi Law OSA - 12/07/2023 4:44 PM EST Burton from [facility] pharmacy called. Needs clarification on script sent by Dr Santo for "Rectal Ice Rocket" Please call pharmacy compounding dept at [phone] after 830am Thursday Thanks ASHLY Durham documented in this encounter Plan of Treatment Upcoming Encounters Date Type Department Care Team (Latest Contact Info) Description 12/10/2023 3:30 PM EST Immunization/Injec tion Allergy/Immunology [facility] Haley Coombs [address] [place] [address] Corin, Nurse Allergy [facility] [address] [place] [address] 01/01/2024 10:20 AM EST Office Visit General Internal Medicine [facility] Haley Coombs [address] [place] [place] [address] Lorelei Tam MD [address] [place] [address] 01/12/2024 10:15 AM EST Imaging Radiology [facility] 1st [facility] 132 [facility] [place] [address] 01/21/2024 1:00 PM EST Office Visit General Internal Medicine [facility] [address] [place] [address] Lorelei Tam MD [address] [place] [address] 03/25/2024 9:45 AM EDT Office Visit Dermatology [facility] [address] [place] [address] Tito Escobedo MD [address] [place] [address] 05/19/2024 7:30 AM EDT Hospital Encounter OR [facility], Operating Room, [address] [place] [address] Ashlyn Santo MD [address], [place] [phone] 05/19/2024 7:30 AM EDT - 05/19/2024 8:45 AM EDT Surgery OR [facility], Operating Room, [address] [place] [address] Ashlyn Santo MD [address], [place] [phone] ANORECTAL EXAM UNDER ANESTHESIA 05/24/2024 9:00 AM EDT Office Visit General [facility] [address], [place] [phone] Dolly Marcos PA-C [address] [place] [address] Scheduled Procedures Name Priority Associated Diagnoses Date/Ti [...] filedocumented as of this encounter Care Teams Professor Of Graphic Design Relationship Specialty Start Date End Date Lorelei Tam MD 200 [place] [address] PCP - General Internal Medicine 12/27/22 documented as of this encounter
--- OUTSIDE RECORDS SUMMARY | 2024-02-02 06:27 | External Medical Summary | Summary of Care ---
Author Name Unknown Organization [facility] Address [address] [place] [address] Phone [phone] Care Team Providers Care Operational Meteorologist Name Role Phone Lorelei Tam MD Primary Care Provider [phone] Encounter Details Date Type Department Care Team (Late st Contact Info) Description 10/23/2023 Patient Reported Data Patient Survey Ortho [facility] Allergies Active Allergy Reactions Criticality Noted Date Comments Pollen 04/28/2022 documented as of this encounter (statuses as of 10/23/2023) Medications Medication Sig Dispensed Refills Start Date [...] as of this encounter (statuses as of 10/23/2023) Active Problems Problem Noted Date Diagnosed Date Iron deficiency anemia 07/02/2023 Hyperlipidemia with target LDL less than 100 04/2022 Herpes simplex virus infection 04/28/2022 BMI 31.0-31.9,adult 04/28/2022 PTSD (post-traumatic stress disorder) 04/28/2022 Eczema 04/28/2022 Adenomatous polyp of colon 04/28/2022 documented as of this encounter (statuses as of 10/23/2023) Immunizations Name Administration Dates Next Due COVID-19 mRNA, LNP-s, No Pre serve, 2-Dose Series (Moderna) 10/20/2021,03/07/2021,02/07/2021 Covid-19, Mrna, Lnp-s, Pf, B ivalent, 30 Mcg, IM, 12 yrs and above (Pfizer) 11/19/2022 Hepatitis B, 20+ yrs 07/06/2023,02/04/2023,01/05 SEASONAL INFLUENZA, PF, 6 M & Above, IM , (FLULAVAL or FLUZONE) 08/09/2022 documented as of this encounter Social [...] Department Care Team (Latest Contact Info) Description 10/28/2023 1:20 PM EST Office Visit General Internal Medicine [facility] [address] [place] [address] [address] Lorelei Tam MD [address] [place] [address] 10/29/2023 9:00 AM EST Immunization/Injec tion Allergy/Immunology [facility] [place] [address] [place] [address] Corin, Nurse Allergy [facility] [address] [place] [address] 11/25/2023 8:45 AM EST Office Visit Orthopaedics [facility] [place] [address] Carlito Delacruz PA-C [facility] [address] 01/01/2024 10:20 AM EST Office Visit General Internal Medicine [facility] [address] [place] [address] Lorelei Tam MD [address] [place] [address] 01/12/2024 10:15 AM EST Imaging Radiology [address] 132 [facility] [place] [address] 01/14/2024 10:00 AM EST Office Visit Allergy/Immunology [facility] [address] [place] [address] [address] Cayden Stewart MD [address] [place] [address] 03/25/2024 9:45 AM EDT Office Visit Dermatology [facility] [place] 200 [place] [address] Tito Escobedo MD [address] [place], [place] [phone] 05/19/2024 7:30 AM EDT Hospital Encounter OR [facility], Operating Room, [facility] 1st Floor [address] [place] [address] Ashlyn Santo MD [address], [place] [phone] 05/19/2024 7:30 AM EDT - 05/19/2024 8:45 AM EDT Surgery OR [facility], Operating Room, [facility] 1st Floor [address] [place] [address] Ashlyn Santo MD [address], [place] [phone] ANORECTAL EXAM UNDER ANESTHESIA 05/24/2024 9:00 AM EDT [facility] [address], [place] [phone] Dolly Marcos PA-C [address], [place] [phone] Scheduled Procedures Name Priority Associated Diagnoses Date/Ti [...] filedocumented as of this encounter Care Teams Operational Meteorologist Relationship Specialty Start Date End Date Lorelei Tam MD 200 [place] [address] PCP - General Internal Medicine 12/27/22 documented as of this encounter
--- OUTSIDE RECORDS SUMMARY | 2024-02-02 06:27 | External Medical Summary | Summary of Care ---
Author Name Unknown Organization [facility] Address [address] [place] [address] Phone [phone] Care Team Providers Care Production Maintenance Mechanic Name Role Phone Lorelei Tam MD Primary Care Provider [phone] Reason for Visit * Reason Onset Date Comments Referral 10/14/2023 Encounter Details Date Type Department Care Team (Late st Contact Info) Description 10/14/2023 Telephone Orthopaedics [facility] [address] [facility] [place] [address] Carlito Delacruz PA-C [address] [facility] [address] Referral Allergies Active Allergy Reactions Criticality Noted Date Comments Pollen 04/28/2022 documented as of this encounter (statuses as of 10/14/2023) Medications Medication Sig Dispensed Refills Start Date [...] as of this encounter (statuses as of 10/14/2023) Active Problems Problem Noted Date Diagnosed Date Iron deficiency anemia 07/02/2023 Hyperlipidemia with target LDL less than 100 04/2022 Herpes simplex virus infection 04/28/2022 BMI 31.0-31.9,adult 04/28/2022 PTSD (post-traumatic stress disorder) 04/28/2022 Eczema 04/28/2022 Adenomatous polyp of colon 04/28/2022 documented as of this encounter (statuses as of 10/14/2023) Immunizations Name Administration Dates Next Due COVID-19 [...] encounter Miscellaneous Notes * Telephone Encounter - Kristin Farooq - 10/14/2023 11:15 AM EST Per patients request PT order successfully faxed to [facility] documented in this encounter Plan of Treatment Upcoming Encounters Date Type Department Care Team (Latest Contact Info) Description 10/20/2023 10:45 AM EST Immunization/Injec tion Allergy/Immunology [facility] [address] [place] [address] Corin Nurse Allergy [facility] [address] [place] [address] 11/25/2023 8:45 AM EST Office Visit Orthopaedics [facility] [place] [address] Carlito Delacruz PA-C [address] [place] [address] 01/01/2024 10:20 AM EST Office Visit General Internal Medicine [facility] [address] [place] [place] [address] Lorelei Tam MD [address] [facility] [place] [address] 01/12/2024 10:15 AM EST Imaging Radiology [address] [employer] [address] [place] [address] 01/14/2024 10:00 AM EST Office Visit Allergy/Immunology [facility] [address] [place] [address] Cayden Stewart MD [address] [place] [address] 03/25/2024 9:45 AM EDT Office Visit Dermatology [facility] [address] [place] [address] Tito Escobedo MD [address] [place] [address] 05/19/2024 7:30 AM EDT Hospital Encounter OR [facility], Operating Room, [address] [place] [address] Ashlyn Santo MD [address] [place] [address] 05/19/2024 7:30 AM EDT - 05/19/2024 8:45 AM EDT Surgery OR [facility], Operating Room, [address] [place] [address] Ashlyn Santo MD [address], [place] [phone] ANORECTAL EXAM UNDER ANESTHESIA 05/24/2024 9:00 AM EDT [facility] [address], [place] [phone] Dolly Marcos PA-C [address], [place] [phone] Scheduled Procedures Name Priority Associated Diagnoses Date/Ti [...] filedocumented as of this encounter Care Teams Production Maintenance Mechanic Relationship Specialty Start Date End Date Lorelei Tam MD 200 [facility] [place] [address] PCP - General Internal Medicine 12/27/22 documented as of this encounter
--- OUTSIDE RECORDS SUMMARY | 2024-02-02 06:27 | External Medical Summary | Summary of Care ---
Author Name Unknown Organization [facility] Address [address] [place] [address] Phone [phone] Care Team Providers Care Central Supply Technician Name Role Phone Lorelei Tam MD Primary Care Provider [phone] Reason for Referral * Evaluate & Treat - Unlimited Visits (Within 10 days (routine)) - Authorized Specialty Diagnoses / Procedures Referred By Nazia gibson Referred To Contact Physical Therapy / Physical Medicine And Rehab Diagnoses Calcific tendinitis of left shoulder Carlito Delacruz PA-C [address] [place] [address] Referral ID Status Reason Start Date Expiration Date Visits Requested Visits Authorized [id number] Authorized Specialty Services Required 3 [phone] Question Answer Referral Priority Within 10 days (routine) Where should this appointment be scheduled? [facility] Reason for Visit * Reason Comments NEW PATIENT Left shoulder Encounter Details Date Type Department Care Team (Late st Contact Info) Description 10/14/2023 10:15 AM EST Office Visit Orthopaedics [facility] [address] [place] [address] Carlito Delacruz PA-C [address] [place] [address] Calcific tendinitis of left shoulder* Allergies Active [...] Progress Notes * Carlito Delacruz PA-C - 10/14/2023 10:08 AM EST Subjective Lima Dickerson is a 48 year old female. Chief Complaint Patient presents with NEW PATIENT Left shoulder HPI: New patient presents to Orthopedics complaining of left shoulder pain x1 week after hanging a mirror in her bathroom. She points towards the anterior leading edge and lateral aspect of her rotator cuff referred location. Denies any weakness or loss of motion. Pain with shoulder level and overhead activity. Will need x-rays today. Does feel like it has slightly improved over the past week with NSAIDs thermal modalities and behavior modification. PMH: Patient Active Problem List Diagnosis Code Hyperlipidemia with target LDL less than 100 E78.5 Herpes simplex virus infection B00.9 BMI 31.0-31.9,adult Z68.31 PTSD (post-traumatic stress disorder) F43.10 Eczema L30.9 Adenomatous polyp of colon D12.6 Iron deficiency anemia D50.9 Current Outpatient Medications Medication Sig Dispense Refill valACYclovir HCl 500 MG Oral Tablet (Valtrex) Take 1 Tablet by mouth 2 times a day as needed. Levonorgestrel 20 MCG/24HR Intrauterine Intrauterine Device (Mirena) Insert 1 Each into uterus once. Mometasone Furoate 0.1 % External Cream APPLY [...] DAY IN THE MORNING) 90 Tablet 3 No current facility-administered medications for this visit. Past Medical History: Diagnosis Date Adenomatous polyp of colon 04/28/2022 Anemia Eczema 04/28/2022 Hemorrhoids Herpes simplex virus infection 04/28/2022 Hyperlipidemia with target LDL less than 100 04/28/2022 PTSD (post-traumatic stress disorder) 04/28/2022 Past Surgical History: Procedure Laterality Date COLONOSCOPY, DIAGNOSTIC (RECTUM) 05/28/2023 hemorrhoids/biopsies show adenomatous polyps/recall recall 5 years/COLONOSCOPY FLEXIBLE PROXIMAL DIAGNOSTIC performed by Melissa Tabor MD at [facility] EGD, FLEXIBLE, DIAGNOSTIC 05/28/2023 biopsies from stomach show H pylori/ESOPHAGOGASTRODUODENOSCOPY (EGD), FLEXIBLE, TRANSORAL, DIAGNOSTIC performed by Melissa Tabor MD at [facility]OSCOPY [facility] ID SURGICAL PATHOLOGY LEVEL 3 GROSS & MICROSCOPIC EXAMINATION ID TONSILLECTOMY & ADENOIDECTOMY AGE 12 OR MORE Review of patient's allergies indicates: Allergen Reactions [...] Specified) PGMA (Not Specified) PGFA (Not Specified) Social History Socioeconomic History Marital status: Spouse name: Not on file Number of children: Not on file Years of education: Not on file Highest education level: Not on file Occupational History Not on file Tobacco Use Smoking status: Never Smokeless tobacco: Never Vaping Use Vaping Use: Never used Substance and Sexual Activity Alcohol use: Never Drug use: Never Comment: Uses CBD/THC gummies at times Sexual activity: Yes Partners: Male control/protection: I.U.D. Comment: Dinah IUD 2016 Other Topics Concern Not on file Social History Narrative . Originally from [place] Social Determinants of Health Financial Resource Strain: Not on file Food Insecurity: No Food Insecurity (12/26/2022) Hunger Vital Sign Worried About Running Out of Food in the Last Year: Never true Ran Out of Food in the Last Year: Never true Transportation Needs: Not on file Physical Activity: Not on file Stress: Not on file Social Connections: Not on file Intimate Partner Violence: Not on file Housing Stability: Not on file Objective There were no vitals taken for this visit. complete review of systems negative General: alert and oriented x3 female, no acute distress, appears currently stated age, pleasant, well nourished Skin: Left upper extremity including shoulder does not reveal any erythema, ecchymosis, abrasion, laceration, skin breakdown otherwise Neurovascular: Left upper extremity reveals distal pulses +2, capillary refill is under 2 seconds, good sensation light touch, +5 parenting skills instructor strength, axillary median ulnar radial nerve assess fully intact Musculoskeletal: Exam of the left LEFT SHOULDER: Forward Flexion: 180 degrees with pain Abduction: 180 degrees with pain External rotation at 0 degrees: 70 degrees Internal Rotation: T7 Strength: Forward flexion: 5/5 with pain Abduction: 5/5 with pain External Rotation: 5/5 Internal Rotation: 5/5 Porfirio's test empty can: Painful but no weakness Speed test: Positive Yergason's: negative Tender to palpation ACJ (acromioclavicular joint): negative Tender to palpation LHB (long head of biceps): negative Sears test: Positive [place] test: negative Hornblower: negative Lift off: negative Belly Press: negative Bear Hug: negative External lag sign: negative Cross-body adduction: negative Sulcus sign: negative X-rays of the patient's left shoulder reveal humeral head located in glenoid fossa. There is no superior migration humeral head. The AC joint is free of separation and degeneration. There is no evidence of osteoarthritis in the glenohumeral joint. No acute findings such as fracture dislocation subluxation. Calcification identified faintly at the rotator cuff footprint that I believe is clinicallyrelevant. Unable to identify any type of obvious cystic change or masses in the bone. ASSESSMENT/PLAN: There are no diagnoses linked to this encounter. Impression: Left rotator cuff calcific tendinitis Plan: Today 's findings were discussed with the patient. They were educated regarding their diagnosis. Multiple treatment options discussed and agreed upon, including formal physical therapy, thermalmodalities, behavior modification, NSAIDs with food as tolerated discontinue with any GI upset, behavior modification and rest. Follow up in 6 weeks. No improvement and I would obtain an MRI to confirm she does not have a surgical diagnosis and discuss injectables. Patient is in agreement. The patient has no other questions or concerns. Pleased with today 's care. Call sooner if needed. This chart was completed in part utilizing [employer] Speech Voice Recognition Software. Grammatical errors, random word insertions, prounoun errors, and incomplete sentences are an occasional consequence of this system due to software limitations, ambient noise, and hardware issues. Any formal questions or concerns about the content, text, or information contained within the body of this dictation should be directly addressed to the provider for clarification. Carlito Delacruz PA-C documented in this encounter Nursing Notes * Lisbeth Gonzalez RN - 10/14/2023 10:10 AM EST Pt presents today for left shoulder pain. Pain x few months last week got worse could not lift arm.Denies injury, sx, PT, or injections. RHD. Ice and Tylenol, Advil helps. Heat works better. Pain 3/10 waking up at night. Pain to elbow. Denies numbness or tingling. Lisbeth Gonzalez RN documented in this encounter Plan of Treatment Upcoming Encounters Date Type Department Care Team (Latest Contact Info) Description 10/20/2023 10:45 AM EST Immunization/Injec tion Allergy/Immunology [facility] [address] [place] [address] Corin Nurse Allergy [facility] [address] [place] [address] 11/25/2023 8:45 AM EST Office Visit Orthopaedics [facility] 132 [place] [address] Carlito Delacruz PA-C 132 [place] [address] 01/01/2024 10:20 AM EST Office Visit General Internal Medicine [facility] [address] [place] [address] Lorelei Tam MD [address] [place] [address] 01/12/2024 10:15 AM EST Imaging Radiology [address] [place] [address] 01/14/2024 10:00 AM EST Office Visit Allergy/Immunology [facility] [address] [place] [address] Cayden Stewart MD [address] [place] [place] [address] 03/25/2024 9:45 AM EDT Office Visit Dermatology [facility] [address] [place] [place] [address] Tito Escobedo MD [address] [place] [address] 05/19/2024 7:30 AM EDT Hospital Encounter OR [facility], Operating Room, [facility] 1st Floor [address] [place] [address] Ashlyn Santo MD [address] [place], [place] [address] 05/19/2024 7:30 AM EDT - 05/19/2024 8:45 AM EDT Surgery OR [facility], Operating Room, [facility] 1st Floor [address] [place] [address] Ashlyn Santo MD [address] [place], [place] [phone] ANORECTAL EXAM UNDER ANESTHESIA 05/24/2024 9:00 AM EDT Office Visit General Surgery, [place] [address] [place], [place] [phone] Dolly Marcos PA-C [address] [place], [place] [phone] Pending Results Name Type Priority Associated Diagnoses Date /Time XR SHOULDER, 2 OR MORE VIEWS Medical Imaging Routine 10/14/2023 10:37 AM EST Scheduled Procedures Name Priority Associated Diagnoses Date/Ti me ANORECTAL EXAM UNDER ANESTHESIA Hemorrhoids 05/19/2024 7:30 AM EDT HEMORRHOIDECTOMY EXTERNAL AN D INTERNAL COMPLEX Hemorrhoids 05/19/2024 7:30 AM EDT COLONOSCOPY FLEXIBLE PROXIMA L DIAGNOSTIC Recall History of colon polyps Scheduled Referrals Name Type Priority Associated Diagnoses Orde r Schedule PHYSICAL THERAPY REFERRAL OP Referral Within 10 days (routine) Calcific tendinitis of left shoulder Ordered: 10/14/2023 Health Maintenance Due Date Last Done Comments [...] complication documented in this encounter Care Teams Central Supply Technician Relationship Specialty Start Date End Date Lorelei Tam MD 200 [facility] [place] [address] PCP - General Internal Medicine 12/27/22 documented as of this encounter
--- OUTSIDE RECORDS SUMMARY | 2024-02-02 06:27 | External Medical Summary | Summary of Care ---
Author Name Unknown Organization [facility] Address [address] [place] [address] Phone [phone] Care Team Providers Care Delivery Man Name Role Phone Lorelei Tam MD Primary Care Provider [phone] Reason for Visit * Reason Onset Date Comments Allergy Injection 10/22/2023 Encounter Details Date Type Department Care Team (Late st Contact Info) Description 10/22/2023 9:00 AM EST Immunization/I njection Allergy/Immunology [facility] [address] [place] [address] Corin, Nurse Allergy [facility] [address] [place] [address] Allergic rhinitis, unspecified seasonality, unspecified trigger* Allergies Active Allergy Reactions Criticality Noted Date Comments Pollen 04/28/2022 documented as of this encounter (statuses as of 10/22/2023) Medications Medication Sig Dispensed Refills Start Date [...] as of this encounter (statuses as of 10/22/2023) Active Problems Problem Noted Date Diagnosed Date Iron deficiency anemia 07/02/2023 Hyperlipidemia with target LDL less than 100 04/2022 Herpes simplex virus infection 04/28/2022 BMI 31.0-31.9,adult 04/28/2022 PTSD (post-traumatic stress disorder) 04/28/2022 Eczema 04/28/2022 Adenomatous polyp of colon 04/28/2022 documented as of this encounter (statuses as of 10/22/2023) Immunizations Name Administration Dates Next Due COVID-19 [...] Progress Notes * Kandis Luna LPN - 10/22/2023 12:31 PM EST Pre-injection Questionnaire Patient identified by [...] PM EST Office Visit General Internal Medicine [facility] [address] [place] [address] Lorelei Tam MD [address] [facility] [place] [address] 10/29/2023 9:00 AM EST Immunization/Injec tion Allergy/Immunology [facility] [address] [place] [address] Corin Nurse Allergy [facility] [address] [place] [address] 11/25/2023 8:45 AM EST Office Visit Orthopaedics [facility] [address] [facility] [place] [address] Carlito Delacruz PA-C 132 [place] [address] 01/01/2024 10:20 AM EST Office Visit General Internal Medicine [facility] [address] [place] [address] Lorelei Tam MD [address] [place] [address] 01/12/2024 10:15 AM EST Imaging Radiology [address] 132 [facility] [place] [address] 01/14/2024 10:00 AM EST Office Visit Allergy/Immunology [facility] [address] [place] [address] Cayden Stewart MD [address] [place] [address] 03/25/2024 9:45 AM EDT Office Visit Dermatology [facility] [address] [place] [address] Tito Escobedo MD [address] [place] [address] 05/19/2024 7:30 AM EDT Hospital Encounter OR [facility], Operating Room, [facility] 1st Floor 10[address] [place] [address] Ashlyn Santo MD [address] [place] [address] 05/19/2024 7:30 AM EDT - 05/19/2024 8:45 AM EDT Surgery OR [facility], Operating Room, [facility] 1st Floor 10[address] [place] [address] Ashlyn Santo MD [address] [place] [address] ANORECTAL EXAM UNDER ANESTHESIA 05/24/2024 9:00 AM EDT Office Visit General Surgery, [place] [address] [place], [place] [phone] Dolly Marcos PA-C [address] [place], [place] [phone] Scheduled Procedures Name Priority Associated Diagnoses Date/Ti [...] complication documented in this encounter Care Teams Delivery Man Relationship Specialty Start Date End Date Lorelei Tam MD 200 [facility] [place] [address] PCP - General Internal Medicine 12/27/22 documented as of this encounter
--- OUTSIDE RECORDS SUMMARY | 2024-02-02 06:27 | External Medical Summary | Summary of Care ---
Author Name Unknown Organization [facility] Address [address] [place] [address] Phone [phone] Care Team Providers Care Emotionally Impaired Teacher Name Role Phone Lorelei Tam MD Primary Care Provider [phone] Encounter Details Date Type Department Care Team [...] PM EST Office Visit General Internal Medicine [facility] [address] [place] [address] [place] [address] Lorelei Tam MD [address] [place] [address] 10/29/2023 9:00 AM EST Immunization/Injec tion Allergy/Immunology [facility] [place] [address] [place] [address] [address] Corin, Nurse Allergy [facility] [address] [place] [address] 11/25/2023 8:45 AM EST Office Visit Orthopaedics [facility] [address] Carlito Delacruz PA-C 132 [facility] [address] 01/01/2024 10:20 AM EST Office Visit General Internal Medicine [facility] [address] [place] [address] Lorelei Tam MD [address] [place] [address] 01/12/2024 10:15 AM EST Imaging Radiology [address] 132 [facility] [place] [address] 01/14/2024 10:00 AM EST Office Visit Allergy/Immunology [facility] [address] [place] [address] [place] [address] Cayden Stewart MD [address] [place] [address] 03/25/2024 9:45 AM EDT Office Visit Dermatology [facility] [place] 200 [facility] [place] [address] Tito Escobedo MD [address] [place], [place] [address] 05/19/2024 7:30 AM EDT Hospital Encounter OR [facility], Operating Room, [facility] 1st Floor 10[address] [place] [address] Ashlyn Santo MD [address] [place], [place] [address] 05/19/2024 7:30 AM EDT - 05/19/2024 8:45 AM EDT Surgery OR [facility], Operating Room, [facility] 1st Floor 10[address] [place] [address] Ashlyn Santo MD [address] [place], [place] [phone] ANORECTAL EXAM UNDER ANESTHESIA 05/24/2024 9:00 AM EDT [facility] [address] [place], [place] [phone] Dolly Marcos PA-C [address] [place], [place] [phone] Scheduled Procedures Name Priority Associated Diagnoses Date/Ti [...] filedocumented as of this encounter Care Teams Emotionally Impaired Teacher Relationship Specialty Start Date End Date Lorelei Tam MD 200 [place] [address] PCP - General Internal Medicine 12/27/22 documented as of this encounter
--- OUTSIDE RECORDS SUMMARY | 2024-02-02 06:27 | External Medical Summary | Summary of Care ---
Author Name Unknown Organization [facility] Address [address] [place] [address] Phone [phone] Care Team Providers Care Manifest/Order Organizer Print Orders Name Role Phone Lorelei Tam MD Primary Care Provider [phone] Encounter Details Date Type Department Care Team [...] PM EST Office Visit General Internal Medicine [facility] [address] [place] [address] [place] [address] Lorelei Tam MD [address] [place] [address] [address] 10/29/2023 9:00 AM EST Immunization/Injec tion Allergy/Immunology [facility] [place] [address] [place] [address] [address] Corin, Nurse Allergy [facility] [address] [address] 11/25/2023 8:45 AM EST Office Visit Orthopaedics [facility] 132 [facility] [address] Carlito Delacruz PA-C 132 [facility] [address] 01/01/2024 10:20 AM EST Office Visit General Internal Medicine [facility] [address] [place] [address] [address] Lorelei Tam MD [address] [place] [address] [address] 01/12/2024 10:15 AM EST Imaging Radiology [address] 132 [facility] [place] [address] 01/14/2024 10:00 AM EST Office Visit Allergy/Immunology [facility] [address] [place] [address] [address] Cayden Stewart MD [address] [place] [address] [place] [address] 03/25/2024 9:45 AM EDT Office Visit Dermatology [facility] [place] 200 [place] [address] Tito Escobedo MD 16 [place], [place] [address] 05/19/2024 7:30 AM EDT Hospital Encounter OR [facility], Operating Room, [facility] 1st Floor 1020 [place] [address] Ashlyn Santo MD [address] [place], [place] [address] 05/19/2024 7:30 AM EDT - 05/19/2024 8:45 AM EDT Surgery OR [facility], Operating Room, [facility] 1st Floor 1020 [place] [address] Ashlyn Santo MD [address] [place], [place] [phone] ANORECTAL EXAM UNDER ANESTHESIA 05/24/2024 9:00 AM EDT [facility] [address] [place], [place] [phone] Dolly Marcos PA-C [address] [place], [place] [phone] Scheduled Procedures Name Priority Associated Diagnoses Date/Ti [...] filedocumented as of this encounter Care Teams Manifest/Order Organizer Print Orders Relationship Specialty Start Date End Date Lorelei Tam MD 200 [facility] [place] [address] PCP - General Internal Medicine 12/27/22 documented as of this encounter
--- OUTSIDE RECORDS SUMMARY | 2024-02-02 06:27 | External Medical Summary | Summary of Care ---
Author Name Unknown Organization [facility] Address [address] [place] [address] Phone [phone] Care Team Providers Care Patternmaker Helper Name Role Phone Lorelei Tam MD Primary Care Provider Reason for Visit * Reason Onset Date Comments Allergy Injection 11/05/2023 Encounter Details Date Type Department Care Team (Late st Contact Info) Description 11/05/2023 10:45 AM EST Immunization/I njection Allergy/Immunology [facility] [address] [place] [address] Corin, Nurse Allergy [facility] 200 [place] [address] Allergic rhinitis, unspecified seasonality, unspecified trigger* Allergies Active Allergy Reactions Criticality Noted Date Comments Pollen 04/28/2022 documented as of this encounter (statuses as of 11/05/2023) Medications Medication Sig Dispensed Refills Start Date [...] as of this encounter (statuses as of 11/05/2023) Active Problems Problem Noted Date Diagnosed Date Iron deficiency anemia 07/02/2023 Hyperlipidemia with target LDL less than 100 04/2022 Herpes simplex virus infection 04/28/2022 BMI 31.0-31.9,adult 04/28/2022 PTSD (post-traumatic stress disorder) 04/28/2022 Eczema 04/28/2022 Adenomatous polyp of colon 04/28/2022 documented as of this encounter (statuses as of 11/05/2023) Immunizations Name Administration Dates Next Due COVID-19 [...] Progress Notes * Heike Serrano LPN - 11/05/2023 10:49 AM EST Pre-injection Questionnaire Patient identified by [...] Department Care Team (Latest Contact Info) Description 11/10/2023 9:15 AM EST Immunization/Injec tion Allergy/Immunology [facility] [place] [address] [place] [address] Corin Nurse Allergy [facility] [address] [place] [address] 11/17/2023 9:30 AM EST Immunization/Injec tion Allergy/Immunology [facility] [address] [place] [address] Corin Nurse Allergy [facility] 200 [facility] [place] [address] 11/25/2023 8:45 AM EST Office Visit Orthopaedics [facility] 132 [facility] [place] [address] Carlito Delacruz PA-C 132 [place] [address] 01/01/2024 10:20 AM EST Office Visit General Internal Medicine [facility] [address] [place] [address] Lorelei Tam MD [address] [address] 01/12/2024 10:15 AM EST Imaging Radiology [address] 132 [facility] [address] 01/21/2024 1:00 PM EST Office Visit General Internal Medicine [facility] [address] [address] Lorelei Tam MD [address] [place] [address] 03/25/2024 9:45 AM EDT Office Visit Dermatology [facility] [address] [address] Tito Escobedo MD [address] [place] [address] 05/19/2024 7:30 AM EDT Hospital Encounter OR [facility], Operating Room, [facility] 1st Floor 10[address] [place] [address] Ashlyn Santo MD [address] [place] [address] 05/19/2024 7:30 AM EDT - 05/19/2024 8:45 AM EDT Surgery OR [facility], Operating Room, [facility] 1st Floor [address] [place] [address] Ashlyn Santo MD [address] [place] [address] ANORECTAL EXAM UNDER ANESTHESIA 05/24/2024 9:00 AM EDT Office Visit General Surgery, [place] [address] [place], [place] [phone] Dolly Marcos PA-C [address] [place], [place] [phone] Scheduled Procedures Name Priority Associated Diagnoses Date/Ti [...] complication documented in this encounter Care Teams Patternmaker Helper Relationship Specialty Start Date End Date Lorelei Tam MD 200 [place] [address] PCP - General Internal Medicine 12/27/22 documented as of this encounter
--- OUTSIDE RECORDS SUMMARY | 2024-02-02 06:27 | External Medical Summary | Summary of Care ---
Author Name Unknown Organization [facility] Address [address] [place] [address] Phone [phone] Care Team Providers Care Animal Attendant Name Role Phone Lorelei Tam MD Primary Care Provider [phone] Encounter Details Date Type Department Care Team [...] PM EST Office Visit General Internal Medicine [facility] [address] [place] [address] Lorelei Tam MD [address] [place] [address] 10/29/2023 9:00 AM EST Immunization/Injec tion Allergy/Immunology [facility] [address] [place] [address] Corin, Nurse Allergy [facility] [address] [address] 11/25/2023 8:45 AM EST Office Visit Orthopaedics [facility] 132 [facility] [address] Carlito Delacruz PA-C 132 [facility] [address] 01/01/2024 10:20 AM EST Office Visit General Internal Medicine [facility] [address] [address] Lorelei Tam MD [address] [place] [address] 01/12/2024 10:15 AM EST Imaging Radiology [address] 132 [facility] [place] [address] 01/14/2024 10:00 AM EST Office Visit Allergy/Immunology [facility] [address] [address] Cayden Stewart MD [address] [place] [address] 03/25/2024 9:45 AM EDT Office Visit Dermatology [facility] 200 [place] [address] Tito Escobedo MD 16 [place], [place] [address] 05/19/2024 7:30 AM EDT Hospital Encounter OR [facility], Operating Room, [facility] 1st Floor [address] [place] [address] Ashlyn Santo MD [address] [place], [place] [address] 05/19/2024 7:30 AM EDT - 05/19/2024 8:45 AM EDT Surgery OR [facility], Operating Room, [facility] 1st Floor [address] [place] [address] Ashlyn Santo MD [address] [place], [place] [phone] ANORECTAL EXAM UNDER ANESTHESIA 05/24/2024 9:00 AM EDT [facility] [address] [place], [place] [phone] Dolly Marcos PA-C [address] [place], [place] [phone] Scheduled Procedures Name Priority Associated Diagnoses Date/Ti [...] filedocumented as of this encounter Care Teams Animal Attendant Relationship Specialty Start Date End Date Lorelei Tam MD 200 [place] [address] PCP - General Internal Medicine 12/27/22 documented as of this encounter
--- OUTSIDE RECORDS SUMMARY | 2024-02-02 06:27 | External Medical Summary | Summary of Care ---
Author Name Unknown Organization [facility] Address [address] [place] [address] Phone [phone] Care Team Providers Care Case Fitter Name Role Phone Lorelei Tam MD Primary Care Provider [phone] Encounter Details Date Type Department Care Team [...] PM EST Office Visit General Internal Medicine [facility] [address] [place] [address] Lorelei Tam MD [address] [place] [address] [place] [address] 10/29/2023 9:00 AM EST Immunization/Injec tion Allergy/Immunology [facility] [address] [place] [address] [place] [address] Corin, Nurse Allergy [facility] [address] [address] 11/25/2023 8:45 AM EST Office Visit Orthopaedics [facility] 132 [facility] [address] Carlito Delacruz PA-C 132 [facility] [address] 01/01/2024 10:20 AM EST Office Visit General Internal Medicine [facility] [address] [address] Lorelei Tam MD [address] [place] [address] 01/12/2024 10:15 AM EST Imaging Radiology [address] 132 [facility] [place] [address] 01/14/2024 10:00 AM EST Office Visit Allergy/Immunology [facility] [address] [place] [address] [address] Cayden Stewart MD [address] [place] [address] 03/25/2024 9:45 AM EDT Office Visit Dermatology [facility] [place] 200 [place] [address] Tito Escobedo MD 16 [place], [place] [address] 05/19/2024 7:30 AM EDT Hospital Encounter OR [facility], Operating Room, [facility] 1st Floor 1020 [place] [address] Ashlyn Santo MD [address] [place], [place] [address] 05/19/2024 7:30 AM EDT - 05/19/2024 8:45 AM EDT Surgery [facility], Operating Room, [facility] 1st Floor 10[address] [place] [address] Ashlyn Santo MD [address] [place], [place] [phone] ANORECTAL EXAM UNDER ANESTHESIA 05/24/2024 9:00 AM EDT [facility] [address] [place], [place] [phone] Dolly Marcos PA-C [address] [place], [place] [phone] Scheduled Procedures Name Priority Associated Diagnoses Date/Ti [...] filedocumented as of this encounter Care Teams Case Fitter Relationship Specialty Start Date End Date Lorelei Tam MD 200 [place] [address] PCP - General Internal Medicine 12/27/22 documented as of this encounter
--- OUTSIDE RECORDS SUMMARY | 2024-02-02 06:27 | External Medical Summary | Summary of Care ---
Author Name Unknown Organization [facility] Address [address] [place] [address] Phone [phone] Care Team Providers Care Diesel Locomotive Firer/Fireman Name Role Phone Lorelei Tam MD Primary Care Provider [phone] Reason for Visit * Reason Onset Date Comments Allergy Injection 11/10/2023 Encounter Details Date Type Department Care Team (Late st Contact Info) Description 11/10/2023 10:15 AM EST Immunization/I njection Allergy/Immunology [facility] [address] [place] [address] Corin, Nurse Allergy [facility] 200 [place] [address] Allergic rhinitis, unspecified seasonality, unspecified trigger* Allergies Active Allergy Reactions Criticality Noted Date Comments Pollen 04/28/2022 documented as of this encounter (statuses as of 11/10/2023) Medications Medication Sig Dispensed Refills Start Date [...] as of this encounter (statuses as of 11/10/2023) Active Problems Problem Noted Date Diagnosed Date Iron deficiency anemia 07/02/2023 Hyperlipidemia with target LDL less than 100 04/2022 Herpes simplex virus infection 04/28/2022 BMI 31.0-31.9,adult 04/28/2022 PTSD (post-traumatic stress disorder) 04/28/2022 Eczema 04/28/2022 Adenomatous polyp of colon 04/28/2022 documented as of this encounter (statuses as of 11/10/2023) Immunizations Name Administration Dates Next Due COVID-19 [...] Progress Notes * Heike Serrano LPN - 11/10/2023 10:11 AM EST Pre-injection Questionnaire Patient identified by [...] Department Care Team (Latest Contact Info) Description 11/17/2023 9:30 AM EST Immunization/Injec tion Allergy/Immunology [facility] [place] [address] [place] [address] Corin Nurse Allergy [facility] [address] [place] [address] 11/25/2023 8:45 AM EST Office Visit Orthopaedics [facility] 132 [place] [address] Carlito Delacruz PA-C 132 [place] [address] 01/01/2024 10:20 AM EST Office Visit General Internal Medicine [facility] [address] [place] [address] Lorelei Tam MD [address] [place] [address] 01/12/2024 10:15 AM EST Imaging Radiology [address] 132 [facility] [address] 01/21/2024 1:00 PM EST Office Visit General Internal Medicine [facility] [address] [place] [address] Lorelei Tam MD [address] [place] [address] 03/25/2024 9:45 AM EDT Office Visit Dermatology [facility] [address] [place] [address] Tito Escobedo MD [address] [place] [address] 05/19/2024 7:30 AM EDT Hospital Encounter OR [facility], Operating Room, [facility] 1st Floor [address] [place] [address] Ashlyn Santo MD [address] [place] [address] 05/19/2024 7:30 AM EDT - 05/19/2024 8:45 AM EDT Surgery OR [facility], Operating Room, [facility] 1st Floor 10[address] [place], [place] [address] Ashlyn Santo MD [address] [place] [address] ANORECTAL EXAM UNDER ANESTHESIA 05/24/2024 9:00 AM EDT Office Visit General Surgery, [place] [address] [place] [address] Dolly Marcos PA-C [address] [place] [address] Scheduled Procedures Name Priority Associated Diagnoses Date/Ti [...] complication documented in this encounter Care Teams Diesel Locomotive Firer/Fireman Relationship Specialty Start Date End Date Lorelei Tam MD 200 [place] [address] PCP - General Internal Medicine 12/27/22 documented as of this encounter
--- OUTSIDE RECORDS SUMMARY | 2024-02-02 06:27 | External Medical Summary | Summary of Care ---
Author Name Unknown Organization [facility] Address [address] [place] [address] Phone [phone] Care Team Providers Care General Merchandise Manager Name Role Phone Lorelei Tam MD Primary Care Provider [phone] Reason for Visit * Reason Onset Date Comments Allergy Injection 10/12/2023 Encounter Details Date Type Department Care Team (Late st Contact Info) Description 10/12/2023 9:15 AM EST Immunization/I njection [facility] [address] [place] [address] Corin, Nurse Allergy [facility] 200 [place] [address] Allergic rhinitis, unspecified seasonality, unspecified trigger* Allergies Active Allergy Reactions Criticality Noted Date Comments Pollen 04/28/2022 documented as of this encounter (statuses as of 10/12/2023) Medications Medication Sig Dispensed Refills Start Date [...] as of this encounter (statuses as of 10/12/2023) Active Problems Problem Noted Date Diagnosed Date Iron deficiency anemia 07/02/2023 Hyperlipidemia with target LDL less than 100 04/2022 Herpes simplex virus infection 04/28/2022 BMI 31.0-31.9,adult 04/28/2022 PTSD (post-traumatic stress disorder) 04/28/2022 Eczema 04/28/2022 Adenomatous polyp of colon 04/28/2022 documented as of this encounter (statuses as of 10/12/2023) Immunizations Name Administration Dates Next Due COVID-19 [...] Progress Notes * Heike Serrano LPN - 10/12/2023 9:03 AM EST Pre-injection Questionnaire Patient identified by [...] Department Care Team (Latest Contact Info) Description 10/14/2023 10:15 AM EST Office Visit Orthopaedics [facility] [address] [place] [address] Carlito Delacruz PA-C [address] [place] [address] 01/01/2024 10:20 AM EST Office Visit [facility] Internal Medicine [facility] [address] [place] [address] Lorelei Tam MD [address] [place] [address] 01/12/2024 10:15 AM EST Imaging Radiology [address] [facility] [place] [address] 01/14/2024 10:00 AM EST Office [facility] [address] [place] [address] Cayden Stewart MD [address] [place] [address] 03/25/2024 9:45 AM EDT Office [facility] [address] [place] [address] Tito Escobedo MD [address] [place] [id number] 05/19/2024 7:30 AM EDT Hospital Encounter OR [facility], Operating Room, [address] 1020 [place] [address] Ashlyn Santo MD [address] [place], [place] [phone] 05/19/2024 7:30 AM EDT - 05/19/2024 8:45 AM EDT Surgery OR [facility], Operating Room, [address] [place] [address] Ashlyn Santo MD [facility] [address] [place], [place] [phone] ANORECTAL EXAM UNDER ANESTHESIA 05/24/2024 9:00 AM EDT Office Visit [facility] [address] [place] [address] Dolly Marcos PA-C [address] [place] [address] Scheduled Procedures Name Priority Associated Diagnoses Date/Ti [...] complication documented in this encounter Care Teams General Merchandise Manager Relationship Specialty Start Date End Date Lorelei Tam MD 200 [facility] [place] [address] PCP - General Internal Medicine 12/27/22 documented as of this encounter
--- OUTSIDE RECORDS SUMMARY | 2024-02-02 06:27 | External Medical Summary | Summary of Care ---
Author Name Unknown Organization [facility] Address [address] [place] [address] Phone [phone] Care Team Providers Care Supervisor Coin Machine Name Role Phone Lorelei Tam MD Primary Care Provider [phone] Encounter Details Date Type Department Care Team [...] Medicine [facility] [address] [place] [address] Lorelei Tam MD [address] [place] [address] 10/29/2023 9:00 AM EST Immunization/Injec tion Allergy/Immunology [facility] [address] [address] Corin, Nurse Allergy [facility] [address] [place] [address] 11/25/2023 8:45 AM EST Office Visit [facility]opaedics [facility] 132 [facility] [address] Carlito Delacruz PA-C 132 [facility] [address] 01/01/2024 10:20 AM EST Office Visit General Internal Medicine [facility] [address] [address] Lorelei Tam MD [address] [place] [address] 01/12/2024 10:15 AM EST Imaging Radiology [address] 132 [facility] [place] [address] 01/14/2024 10:00 AM EST Office Visit Allergy/Immunology [facility] [address] [place] [address] Cayden Stewart MD [address] [place] [address] 03/25/2024 9:45 AM EDT Office Visit Dermatology [facility] 200 [place] [address] Tito Escobedo MD 16 [place], [place] [phone] 05/19/2024 7:30 AM EDT Hospital Encounter OR [facility], Operating Room, [facility] 1st Floor [address] [place] [address] Ashlyn Santo MD [address] [place], [place] [id number] 05/19/2024 7:30 AM EDT - 05/19/2024 8:45 AM EDT Surgery OR [facility], Operating Room, [facility] 1st Floor [address] [place] [address] Ashlyn Santo MD [address] [place], [place] [phone] ANORECTAL EXAM UNDER ANESTHESIA 05/24/2024 9:00 AM EDT [facility] [address] [place], [place] [phone] Dolly Marcos PA-C [address] [place], [place] [phone] Scheduled Procedures Name Priority Associated Diagnoses Date/Ti [...] filedocumented as of this encounter Care Teams Supervisor Coin Machine Relationship Specialty Start Date End Date Lorelei Tam MD 200 [facility] [address] PCP - General Internal Medicine 12/27/22 documented as of this encounter
--- OUTSIDE RECORDS SUMMARY | 2024-02-02 06:27 | External Medical Summary | Summary of Care ---
Author Name Unknown Organization [facility] Address [address] [place] [address] Phone [phone] Care Team Providers Care Explosives Handler Name Role Phone Lorelei Tam MD Primary Care Provider [phone] Reason for Visit * Reason Onset Date Comments Allergy Injection 10/29/2023 Encounter Details Date Type Department Care Team (Late st Contact Info) Description 10/29/2023 9:00 AM EST Immunization/I njection Allergy/Immunology [facility] [address] [place] [address] Corin, Nurse Allergy [facility] 200 [place] [address] Allergic rhinitis, unspecified seasonality, unspecified trigger* Allergies Active Allergy Reactions Criticality Noted Date Comments Pollen 04/28/2022 documented as of this encounter (statuses as of 10/29/2023) Medications Medication Sig Dispensed Refills Start Date [...] as of this encounter (statuses as of 10/29/2023) Active Problems Problem Noted Date Diagnosed Date Iron deficiency anemia 07/02/2023 Hyperlipidemia with target LDL less than 100 04/2022 Herpes simplex virus infection 04/28/2022 BMI 31.0-31.9,adult 04/28/2022 PTSD (post-traumatic stress disorder) 04/28/2022 Eczema 04/28/2022 Adenomatous polyp of colon 04/28/2022 documented as of this encounter (statuses as of 10/29/2023) Immunizations Name Administration Dates Next Due COVID-19 [...] Progress Notes * Heike Serrano LPN - 10/29/2023 8:58 AM EST Pre-injection Questionnaire Patient identified by [...] 11/25/2023 8:45 AM EST Office Visit Orthopaedics [facility] [address] [place] [address] Carlito Delacruz PA-C [address] [place] [address] 01/01/2024 10:20 AM EST Office Visit General Internal Medicine [facility] [address] [place] [address] Lorelei Tam MD [address] [facility] [place] [address] 01/12/2024 10:15 AM EST Imaging Radiology [address] 132 [facility] [place] [address] 01/14/2024 10:00 AM EST Office Visit Allergy/Immunology [facility] [address] [place] [address] Cayden Stewart MD [address] [place] [address] 01/21/2024 1:00 PM EST Office Visit General Internal Medicine [facility] [address] [place] [address] Lorelei Tam MD [address] [facility] [place], [place] [address] 03/25/2024 9:45 AM EDT Office Visit Dermatology [facility] [address] [place] [address] Tito Escobedo MD [address] [place] [address] 05/19/2024 7:30 AM EDT Hospital Encounter OR [facility], Operating Room, [facility] [address] [address] Ashlyn Santo MD [address] [place] [address] 05/19/2024 7:30 AM EDT - 05/19/2024 8:45 AM EDT Surgery OR [facility], Operating Room, [facility] 1st Floor 1020 [place], [place] [address] Ashlyn Santo MD [address] [place] [address] ANORECTAL EXAM UNDER ANESTHESIA 05/24/2024 9:00 AM EDT Office Visit General Surgery, [place] [address] [place] [address] Dolly Marcos PA-C [address] [place] [address] Scheduled Procedures Name Priority Associated Diagnoses Date/Ti [...] complication documented in this encounter Care Teams Explosives Handler Relationship Specialty Start Date End Date Lorelei Tam MD 200 [place] [address] PCP - General Internal Medicine 12/27/22 documented as of this encounter
--- OUTSIDE RECORDS SUMMARY | 2024-02-02 06:28 | External Medical Summary | Summary of Care ---
Author Name Unknown Organization [facility] Address [address] [place] [address] Phone [phone] Care Team Providers Care Screen Printing Loader Unloader Name Role Phone Lorelei Tam MD Primary Care Provider [phone] Encounter Details Date Type Department Care Team (Late st Contact Info) Description 10/08/2023 Patient Reported Data Patient Survey Ortho [facility] Allergies Active Allergy Reactions Criticality Noted Date Comments Pollen 04/28/2022 documented as of this encounter (statuses as of 10/08/2023) Medications Medication Sig Dispensed Refills Start Date [...] as of this encounter (statuses as of 10/08/2023) Active Problems Problem Noted Date Diagnosed Date Iron deficiency anemia 07/02/2023 Hyperlipidemia with target LDL less than 100 04/2022 Herpes simplex virus infection 04/28/2022 BMI 31.0-31.9,adult 04/28/2022 PTSD (post-traumatic stress disorder) 04/28/2022 Eczema 04/28/2022 Adenomatous polyp of colon 04/28/2022 documented as of this encounter (statuses as of 10/08/2023) Immunizations Name Administration Dates Next Due COVID-19 [...] Department Care Team (Latest Contact Info) Description 10/08/2023 3:15 PM EST Immunization/Injec tion Allergy/Immunology [facility] [place] [address] [place] [address] Corin Nurse Allergy [facility] [address] [place] [address] 10/12/2023 9:15 AM EST Immunization/Injec tion Allergy/Immunology [facility] [place] [address] [place] [address] Corin Nurse Allergy [facility] [address] [place] [place] [address] 10/14/2023 10:15 AM EST Office Visit Orthopaedics [facility] 132 [facility] [address] Carlito Delacruz PA-C 132 [place] [address] 01/01/2024 10:20 AM EST Office Visit General Internal Medicine [facility] [address] [place] [address] Lorelei Tam MD [address] [facility] [place] [address] 01/12/2024 10:15 AM EST Imaging Radiology [address] 132 [facility] [address] 01/14/2024 10:00 AM EST Office Visit Allergy/Immunology [facility] [address] [place] [address] Cayden Stewart MD [address] [place] [address] 03/25/2024 9:45 AM EDT Office Visit Dermatology [facility] [place] [address] [place] [facility] [place] [address] Tito Escobedo MD 16 [place] [address] 05/06/2024 7:30 AM EDT Hospital Encounter OR [facility], Operating Room, [facility] - 2nd Floor [address] [place] [address] Ashlyn Santo MD [address] [place] [address] 05/06/2024 7:30 AM EDT - 05/06/2024 8:46 AM EDT Surgery OR [facility], Operating Room, [facility] Floor [address] [place] [address] Ashlyn Santo MD [address] [place] [address] ANORECTAL EXAM UNDER ANESTHESIA 05/24/2024 9:00 AM EDT [facility] [address] [place], [place] [phone] Dolly Marcos PA-C [address] [place], [place] [phone] Scheduled Procedures Name Priority Associated Diagnoses Date/Ti me ANORECTAL EXAM UNDER ANESTHESIA Hemorrhoids 05/06/2024 7:30 AM EDT HEMORRHOIDECTOMY EXTERNAL AN D INTERNAL COMPLEX Hemorrhoids 05/06/2024 7:30 AM EDT COLONOSCOPY FLEXIBLE PROXIMA L [...] filedocumented as of this encounter Care Teams Screen Printing Loader Unloader Relationship Specialty Start Date End Date Lorelei Tam MD [address] [place] [address] PCP - General Internal Medicine 12/27/22 documented as of this encounter
--- OUTSIDE RECORDS SUMMARY | 2024-02-02 06:28 | External Medical Summary | Summary of Care ---
Author Name Unknown Organization [facility] Address [address] [place] [address] Phone [phone] Care Team Providers Care Marketing Operations Coordinator Name Role Phone Lorelei Tam MD Primary Care Provider [phone] Encounter Details Date Type Department Care Team [...] 10/08/2023 3:15 PM EST Immunization/Injec tion Allergy/Immunology [facility] [place] [address] [place] [address] Corin Nurse Allergy [facility] [address] [address] 10/12/2023 9:15 AM EST Immunization/Injec tion Allergy/Immunology [facility] [place] [address] [place] [address] Corin Nurse Allergy [facility] [address] [place] [place] [address] 10/14/2023 10:15 AM EST Office Visit Orthopaedics [facility] 132 [facility] [address] Carlito Delacruz PA-C 132 [place] [address] 01/01/2024 10:20 AM EST Office Visit General Internal Medicine [facility] [address] [place] [address] Lorelei Tam MD [address] [facility] [place] [address] 01/12/2024 10:15 AM EST Imaging Radiology [address] 132 [facility] [address] 01/14/2024 10:00 AM EST Office Visit Allergy/Immunology [facility] [address] [place] [address] Cayden Stewart MD [address] [place] [address] 03/25/2024 9:45 AM EDT Office Visit Dermatology [facility] [place] [address] [facility] [place] [address] Tito Escobedo MD 16 [place] [address] 05/06/2024 7:30 AM EDT Hospital Encounter OR [facility], Operating Room, [facility] - 2nd Floor [address] [place] [address] Ashlyn Santo MD [address] [place] [address] 05/06/2024 7:30 AM EDT - 05/06/2024 8:46 AM EDT Surgery OR [facility], Operating Room, [facility] Floor [address] [place] [address] Ashlyn Santo MD [address] [place] [address] ANORECTAL EXAM UNDER ANESTHESIA 05/24/2024 9:00 AM EDT [facility] [address] [place], [place] [address] Dolly Marcos PA-C [address] [place], [place] [address] Scheduled Procedures Name Priority Associated Diagnoses Date/Ti [...] filedocumented as of this encounter Care Teams Marketing Operations Coordinator Relationship Specialty Start Date End Date Lorelei Tam MD [address] [place] [address] PCP - General Internal Medicine 12/27/22 documented as of this encounter
--- OUTSIDE RECORDS SUMMARY | 2024-02-02 06:28 | External Medical Summary | Summary of Care ---
Author Name Unknown Organization [facility] Address [address] [place] [address] Phone [phone] Care Team Providers Care Space Officer Name Role Phone Lorelei Tam MD Primary Care Provider [phone] Reason for Visit * Reason Onset Date Comments Allergy Injection 10/08/2023 Encounter Details Date Type Department Care Team (Late st Contact Info) Description 10/08/2023 3:15 PM EST Immunization/I njection Allergy/Immunology [facility] [address] [place] [address] Corin, Nurse Allergy [facility] 200 [place] [address] Allergic rhinitis, unspecified seasonality, unspecified trigger* Allergies [...] Progress Notes * Kandis Luna LPN - 10/08/2023 3:20 PM EST Pre-injection Questionnaire Patient identified by [...] Department Care Team (Latest Contact Info) Description 10/12/2023 9:15 AM EST Immunization/Injec tion Allergy/Immunology [facility] [address] [place] [address] Corin Nurse Allergy [facility] [address] [place] [address] 10/14/2023 10:15 AM EST Office Visit Orthopaedics [facility] 132 [place] [address] aCrlito Delacruz PA-C 132 [place] [address] 01/01/2024 10:20 AM EST Office Visit General Internal Medicine [facility] [address] [place] [address] Lorelei Tam MD [address] [place] [address] 01/12/2024 10:15 AM EST Imaging Radiology [address] 132 [place] [address] 01/14/2024 10:00 AM EST Office Visit Allergy/Immunology [facility] [address] [place] [address] Cayden Stewart MD [address] [place] [address] 03/25/2024 9:45 AM EDT Office Visit Dermatology [facility] [address] [place] [address] Tito Escobedo MD [address] [place] [address] 05/19/2024 7:30 AM EDT Hospital Encounter OR [facility], Operating Room, [facility] 1st Floor [address] [place] [address] Ashlyn Santo MD [address] [place] [id number] 05/19/2024 7:30 AM EDT - 05/19/2024 8:45 AM EDT Surgery OR [facility], Operating Room, [facility] 1st Floor [address] [place], [place] [address] Ashlyn Santo MD [address] [place] [address] ANORECTAL EXAM UNDER ANESTHESIA 05/24/2024 9:00 AM EDT Office Visit General Surgery, [place] [address] [place] [address] Dolly Marcos PA-C [address] [place], [place] [phone] Scheduled Procedures Name Priority Associated Diagnoses Date/Ti [...] complication documented in this encounter Care Teams Space Officer Relationship Specialty Start Date End Date Lorelei Tam MD 200 [facility] [address] PCP - General Internal Medicine 12/27/22 documented as of this encounter
--- OUTSIDE RECORDS SUMMARY | 2024-02-02 06:28 | External Medical Summary | Summary of Care ---
Author Name Unknown Organization [facility] Address [address] [place] [address] Phone [phone] Care Team Providers Care Real Estate Sales Supervisor Name Role Phone Lorelei Tam MD Primary Care Provider [phone] Encounter Details Date Type Department Care Team [...] 10/08/2023 3:15 PM EST Immunization/Injec tion Allergy/Immunology [facility] [place] [address] [place] [address] Corin Nurse Allergy [facility] [address] [place] [address] 10/12/2023 9:15 AM EST Immunization/Injec tion Allergy/Immunology [facility] [place] [address] [place] [address] Corin Nurse Allergy [facility] [address] [place] [place] [address] 10/14/2023 10:15 AM EST Office Visit Orthopaedics [facility] 132 [facility] [address] Carlito Delacruz PA-C 132 [place] [address] 01/01/2024 10:20 AM EST Office Visit General Internal Medicine [facility] [address] [place] [address] Lorelei Tam MD [address] [facility] [place] [address] 01/12/2024 10:15 AM EST Imaging Radiology [address] 132 [facility] [address] 01/14/2024 10:00 AM EST Office Visit Allergy/Immunology [facility] [address] [place] [address] Cayden Stewart MD [address] [place] [address] 03/25/2024 9:45 AM EDT Office Visit Dermatology [facility] [place] [address] [facility] [place] [address] Tito Escobedo MD 16 [place] [address] 05/06/2024 7:30 AM EDT Hospital Encounter OR [facility], Operating Room, [facility] - 2nd Floor [address] [place] [address] Ashlyn Santo MD [address] [place] [address] 05/06/2024 7:30 AM EDT - 05/06/2024 8:46 AM EDT Surgery OR [facility], Operating Room, [facility] [place] [facility] Floor [address] [place] [address] Ashlyn Santo MD [address] [place] [address] ANORECTAL EXAM UNDER ANESTHESIA 05/24/2024 9:00 AM EDT [facility] [address] [place], [place] [address] Dolly Marcos PA-C [address] [place], [place] [phone] Scheduled Procedures Name Priority Associated Diagnoses Date/Ti [...] filedocumented as of this encounter Care Teams Real Estate Sales Supervisor Relationship Specialty Start Date End Date Lorelei Tam MD [address] [place] [address] PCP - General Internal Medicine 12/27/22 documented as of this encounter
--- OUTSIDE RECORDS SUMMARY | 2024-02-02 06:28 | External Medical Summary | Summary of Care ---
Author Name Unknown Organization [facility] Address [address] [place] [address] Phone [phone] Care Team Providers Care Accounts Adjustable Clerk Name Role Phone Lorelei Tam MD Primary Care Provider [phone] Encounter Details Date Type Department Care Team [...] 10/08/2023 3:15 PM EST Immunization/Injec tion Allergy/Immunology [facility] [place] [address] [place] [address] Corin Nurse Allergy [facility] [address] [place] [address] 10/12/2023 9:15 AM EST Immunization/Injec tion Allergy/Immunology [facility] [place] [address] [place] [address] Corin Nurse Allergy [facility] [address] [address] 10/14/2023 10:15 AM EST Office Visit Orthopaed[facility] 132 [facility] [address] Carlito Delacruz PA-C 132 [place] [address] 01/01/2024 10:20 AM EST Office Visit General Internal Medicine [facility] [address] [place] [address] Lorelei Tam MD [address] [facility] [place] [address] 01/12/2024 10:15 AM EST Imaging Radiology [address] 132 [facility] [address] 01/14/2024 10:00 AM EST Office Visit Allergy/Immunology [facility] [address] [place] [address] Cayden Stewart MD [address] [place] [address] 03/25/2024 9:45 AM EDT Office Visit Dermatology [facility] [place] [address] [facility] [place] [address] Tito Escobedo MD 16 [place] [address] 05/06/2024 7:30 AM EDT Hospital Encounter OR [facility], Operating Room, [facility] - 2nd Floor [address] [place] [address] Ashlyn Santo MD [address] [place] [address] 05/06/2024 7:30 AM EDT - 05/06/2024 8:46 AM EDT Surgery OR [facility], Operating Room, [facility] Floor [address] [place] [address] Ashlyn Santo MD [address] [place] [address] ANORECTAL EXAM UNDER ANESTHESIA 05/24/2024 9:00 AM EDT [facility] [address] [place], [place] [phone] Dolly Marcos PA-C [address] [place], [place] [phone] Scheduled Procedures Name Priority Associated Diagnoses Date/Ti [...] filedocumented as of this encounter Care Teams Accounts Adjustable Clerk Relationship Specialty Start Date End Date Lorelei Tam MD [address] [place] [address] PCP - General Internal Medicine 12/27/22 documented as of this encounter
--- OUTSIDE RECORDS SUMMARY | 2024-02-02 06:28 | External Medical Summary | Summary of Care ---
Author Name Unknown Organization [facility] Address [address] [place] [address] Phone [phone] Care Team Providers Care Skein Yarn Dyer Name Role Phone Lorelei Tam MD Primary Care Provider [phone] Encounter Details Date Type Department Care Team [...] 10/08/2023 3:15 PM EST Immunization/Injec tion Allergy/Immunology [facility] [place] [address] [place] [address] Corin Nurse Allergy [facility] [address] [place] [place] [address] 10/12/2023 9:15 AM EST Immunization/Injec tion Allergy/Immunology [facility] [place] [address] [place] [address] Corin Nurse Allergy [facility] [address] [place] [address] 10/14/2023 10:15 AM EST Office Visit [facility] 132 [facility] [address] Carlito Delacruz PA-C 132 [place] [address] 01/01/2024 10:20 AM EST Office Visit General Internal Medicine [facility] [address] [place] [address] Lorelei Tam MD [address] [facility] [place] [address] 01/12/2024 10:15 AM EST Imaging Radiology [address] 132 [facility] [address] 01/14/2024 10:00 AM EST Office Visit Allergy/Immunology [facility] [address] [place] [address] Cayden Stewart MD [address] [place] [address] 03/25/2024 9:45 AM EDT Office Visit Dermatology [facility] [address] [facility] [place] [address] Tito Escobedo MD 16 [place] [address] 05/06/2024 7:30 AM EDT Hospital Encounter OR [facility], Operating Room, [facility] - 2nd Floor [address] [place] [address] Ashlyn Santo MD [address] [place] [address] 05/06/2024 7:30 AM EDT - 05/06/2024 8:46 AM EDT Surgery OR [facility], Operating Room, [facility] Floor [address] [place] [address] Ashlyn Santo MD [address] [place] [address] ANORECTAL EXAM UNDER ANESTHESIA 05/24/2024 9:00 AM EDT [facility] [address] [place], [place] [phone] Dolly Marcos PA-C [address] [place], [place] [phone] Scheduled Procedures Name Priority Associated Diagnoses Date/Ti [...] filedocumented as of this encounter Care Teams Skein Yarn Dyer Relationship Specialty Start Date End Date Lorelei Tam MD [address] [place] [address] PCP - General Internal Medicine 12/27/22 documented as of this encounter
--- OUTSIDE RECORDS SUMMARY | 2024-02-02 06:28 | External Medical Summary | Summary of Care ---
Author Name Unknown Organization [facility] Address [address] [place] [address] Phone [phone] Care Team Providers Care Manager Environmental Health Name Role Phone Lorelei Tam MD Primary Care Provider [phone] Encounter Details Date Type Department Care Team [...] 10/08/2023 3:15 PM EST Immunization/Injec tion Allergy/Immunology [facility] [place] [address] [place] [address] [address] [facility] [address] [place] [address] 10/12/2023 9:15 AM EST Immunization/Injec tion Allergy/Immunology [facility] [place] [address] [place] [address] [address] [facility] [address] [place] [address] 10/14/2023 10:15 AM EST Office Visit [facility]opaedics [facility] [address] Carlito Delacruz PA-C 132 [place] [address] 01/01/2024 10:20 AM EST Office Visit General Internal Medicine [facility] [address] [place] [address] Lorelei Tam MD [address] [facility] [place] [address] 01/12/2024 10:15 AM EST Imaging Radiology [address] [facility] [address] 01/14/2024 10:00 AM EST Office Visit Allergy/Immunology [facility] [address] [place] [address] Cayden Stewart MD [address] [place] [address] 03/25/2024 9:45 AM EDT Office Visit Dermatology [facility] [place] [address] [place] [address] Tito Escobedo MD [address] [place] [address] 05/06/2024 7:30 AM EDT Hospital Encounter OR [facility], Operating Room, [facility] - 2nd Floor [address] [place] [address] Ashlyn Santo MD [address] [place] [address] 05/06/2024 7:30 AM EDT - 05/06/2024 8:46 AM EDT Surgery OR [facility], Operating Room, [facility] Floor [address] [place] [address] Ashlyn Santo MD [address] [place] [address] ANORECTAL EXAM UNDER ANESTHESIA 05/24/2024 9:00 AM EDT [facility] [address] [place], [place] [phone] Dolly Marcos PA-C [address] [facility], [place] [phone] Scheduled Procedures Name Priority Associated Diagnoses Date/Ti [...] filedocumented as of this encounter Care Teams Manager Environmental Health Relationship Specialty Start Date End Date Lorelei Tam MD [address] [place] [address] PCP - General Internal Medicine 12/27/22 documented as of this encounter
--- OUTSIDE RECORDS SUMMARY | 2024-02-02 06:28 | External Medical Summary | Summary of Care ---
Author Name Unknown Organization [facility] Address [address] [place] [address] Phone [phone] Care Team Providers Care Radio Maintainer Name Role Phone Lorelei Tam MD Primary Care Provider [phone] Encounter Details Date Type Department Care Team [...] 10/08/2023 3:15 PM EST Immunization/Injec tion Allergy/Immunology [facility] [place] [address] [place] [address] Corin Nurse Allergy [facility] [address] [place] [address] 10/12/2023 9:15 AM EST Immunization/Injec tion Allergy/Immunology [facility] [place] [address] [place] [address] Corin Nurse Allergy [facility] [address] [place] [address] 10/14/2023 10:15 AM EST Office Visit Orthopaedics [facility] [address] Carlito Delacruz PA-C 132 [place] [address] 01/01/2024 10:20 AM EST Office Visit General Internal Medicine [facility] [address] [place] [address] Lorelei Tam MD [address] [facility] [place] [address] 01/12/2024 10:15 AM EST Imaging Radiology [address] [facility] [address] 01/14/2024 10:00 AM EST Office Visit Allergy/Immunology [facility] [address] [place] [address] Cayden Stewart MD [address] [place] [address] 03/25/2024 9:45 AM EDT Office Visit Dermatology [facility] [place] [address] [facility] [place] [address] Tito Escobedo MD [address] [place] [address] 05/06/2024 7:30 AM EDT Hospital Encounter OR [facility], Operating [facility], [facility] 2[facility] Floor [address] [place] [address] Ashlyn Santo MD [address] [place] [address] 05/06/2024 7:30 AM EDT - 05/06/2024 8:46 AM EDT Surgery OR [facility], Operating Room, [facility] Floor [address] [place] [address] Ashlyn Santo MD [address] [place] [address] ANORECTAL EXAM UNDER ANESTHESIA 05/24/2024 9:00 AM EDT [facility] [address] [place], [place] [phone] Dolly Marcos PA-C [address] [place], [place] [phone] Scheduled Procedures Name Priority Associated Diagnoses Date/Ti [...] filedocumented as of this encounter Care Teams Radio Maintainer Relationship Specialty Start Date End Date Lorelei Tam MD [address] [place] [address] PCP - General Internal Medicine 12/27/22 documented as of this encounter
--- OUTSIDE RECORDS SUMMARY | 2024-02-02 06:29 | External Medical Summary ---
Author Name Unknown Address Unknown Organization [id number]:[facility] [place] [address] Laboratory Report Ordering Provider Test Date Status NUBIA RUSHING 09/10/2023 15:34:57 Final Observation Date Value Abnormality Reference (Units ) Status SYNC LEUKOCYTES IN BLOOD BY AUTOMATED COUNT 09/10/2023 15:34:57 6.47 4.00-10.80 (K/uL) Final Segs 09/10/2023 15:34:57 56.6 40.0-75.0 (%) Final Lymphs % 09/10/2023 15:34:57 30.3 18.0-42.0 (%) Final Monos 09/10/2023 15:34:57 9.0 1.0-11.0 (%) Final Eosinophils 09/10/2023 15:34:57 3.6 0.0-6.0 (%) Final Basos 09/10/2023 15:34:57 0.5 0.0-2.0 (%) Final Absolute Segs 09/10/2023 15:34:57 3.67 1.80-7.70 (K/uL) Final Lymphs, absolute 09/10/2023 15:34:57 1.96 1.00-4.80 (K/ul) Final Monos, Abs 09/10/2023 15:34:57 0.58 0.00-1.10 (K/uL) Final Eos, Abs 09/10/2023 15:34:57 0.23 0.00-0.70 (K/uL) Final Basos, Abs 09/10/2023 15:34:57 0.03 0.00-0.20 (K/uL) Final Performing Location [facility] [place] [address]
--- OUTSIDE RECORDS SUMMARY | 2024-02-02 06:29 | External Medical Summary ---
Author Name Unknown Address Unknown Organization [id number]:[facility] [place] [facility] [address] [place] [address] Laboratory Report Ordering Provider Test Date Status PREETHI PAUL 09/10/2023 15:34:57 Final Observation Date Value Abnormality Reference (Units) Status CELIAC DISEASE SCREEN INTERP - [facility] 09/10/2023 15:34:57 No serological evidence of celiac disease. Final Tissue transglutaminase IgA Ab [Units/volume] in Serum by Immunoassay 09/10/2023 15:34:57 0.5 <7 (U/mL) Final Tissue transglutaminase IgA Ab [Presence] in Serum by Immunoassay 09/10/2023 15:34:57 Negative Negative Final IgA 09/10/2023 15:34:57 324 70-400 (mg/dL) Final Performing Location [facility] [place] [facility] [address] [place] [address]
--- OUTSIDE RECORDS SUMMARY | 2024-02-02 06:29 | External Medical Summary | Summary of Care ---
Author Name Unknown Organization [facility] Address [address] [place] [address] Phone [phone] Care Team Providers Care Felt Washing Machine Tender Name Role Phone Lorelei Tam MD Primary Care Provider [phone] Reason for Visit * Reason Onset Date Comments Allergy Injection 09/28/2023 Encounter Details Date Type Department Care Team (Late st Contact Info) Description 09/28/2023 3:30 PM EST Immunization/I njection Allergy/Immunology [facility] Haley Coombs [address] [place] [address] Corin, Nurse Allergy [facility] [address] [place] [address] Allergic rhinitis, unspecified seasonality, unspecified trigger* Allergies Active Allergy Reactions Criticality Noted Date Comments Pollen 04/28/2022 documented as of this encounter (statuses as of 09/28/2023) Medications Medication Sig Dispensed Refills Start Date [...] DAY IN THE MORNING, Reported on 05/22/2023 Gabapentin 300 MG Oral Capsule (Neurontin) Take 1 Capsule by mouth in the morning and 1 Capsule before bedtime. Do all this for 14 days. 28 Capsule 0 09/22/2023 10/06/2023 Active documented as of this encounter (statuses as of 09/28/2023) Active Problems Problem Noted Date Diagnosed Date Iron deficiency anemia 07/02/2023 Hyperlipidemia with target LDL less than 100 04/2022 Herpes simplex virus infection 04/28/2022 BMI 31.0-31.9,adult 04/28/2022 PTSD (post-traumatic stress disorder) 04/28/2022 Eczema 04/28/2022 Adenomatous polyp of colon 04/28/2022 documented as of this encounter (statuses as of 09/28/2023) Immunizations Name Administration Dates Next Due COVID-19 [...] Progress Notes * Heike Serrano LPN - 09/28/2023 3:35 PM EST Pre-injection Questionnaire Patient identified by [...] Upcoming Encounters Date Type Department Care Team (Late st Contact Info) Description 10/08/2023 9:30 AM EST Office Visit Gastroenterology, [facility] 132 [facility] [place] [address] Onur Aburto CRNP 132 [place] [address] 01/01/2024 10:20 AM EST Office Visit General Internal Medicine [facility] 200 [facility] [place] [address] Lorelei Tam MD 200 [facility] [place] [address] 01/12/2024 10:15 AM EST Imaging Radiology [address] 132 [facility] [place] [address] 01/14/2024 10:00 AM EST Office Visit Allergy/Immunology [facility] 200 [facility] [place] [address] Cayden Stewart MD 200 [facility] [place] [address] 03/25/2024 9:45 AM EDT Office Visit Dermatology [facility] 200 [facility] [place] [address] Tito Escobedo MD [address] [place] [address] Scheduled Procedures Name Priority Associated Diagnoses Date/Ti me COLONOSCOPY FLEXIBLE PROXIMAL DIAGNOSTIC Recall History of colon polyps Health [...] Allergic rhinitis, unspecified seasonality, unspecified trigger- Primary documented in this encounter Care Teams Felt Washing Machine Tender Relationship Specialty Start Date End Date Lorelei Tam MD [address] [place] [address], [place] [address] PCP - General Internal Medicine 12/27/22 documented as of this encounter
--- OUTSIDE RECORDS SUMMARY | 2024-02-02 06:29 | External Medical Summary | Summary of Care ---
Author Name Unknown Organization [facility] Address [address] [place] [address] Phone [phone] Care Team Providers Care Eeg Technologist Name Role Phone Lorelei Tam MD Primary Care Provider [phone] Reason for Visit * Reason Comments Follow Up Acne Patient here for F/u acne and brown spots on face Encounter Details Date Type Department Care Team (Late st Contact Info) Description 09/25/2023 11:30 AM EDT Office Visit Dermatology [facility] 200 [facility] [place] [address] Tito Escobedo MD [address] [place] [address] Neoplasm of skin of leg or hip, benign, left*; Melasma; Skin lesion Allergies Active Allergy Reactions Criticality Noted Date Comments Pollen 04/28/2022 documented as of this encounter (statuses as of 09/25/2023) Medications Medication Sig Dispensed Refills Start Date [...] as of this encounter (statuses as of 09/25/2023) Active Problems Problem Noted Date Diagnosed Date Iron deficiency anemia 07/02/2023 Hyperlipidemia with target LDL less than 100 04/2022 Herpes simplex virus infection 04/28/2022 BMI 31.0-31.9,adult 04/28/2022 PTSD (post-traumatic stress disorder) 04/28/2022 Eczema 04/28/2022 Adenomatous polyp of colon 04/28/2022 documented as of this encounter (statuses as of 09/25/2023) Immunizations Name Administration Dates Next Due COVID-19 [...] as of this encounter Progress Notes * Tito Escobedo MD - 09/25/2023 11:57 AM EDT BlessingCassy Dickerson is a 48 year old female here for follow up. Melasma improved but she still notices it in photos and is bothersome for her. Other skin problems today: yes: left leg lesion was removed in the past and has regrown, gets caught and irritated on clothing. Also soft growing lump for many years on the right leg. Current Outpatient Medications Medication Sig Dispense Refill [...] DAY IN THE MORNING) 90 Tablet 3 Gabapentin 300 MG Oral Capsule (Neurontin) Take 1 Capsule by mouth in the morning and 1 Capsule before bedtime. Do all this for 14 days. 28 Capsule 0 No current facility-administered medications for this visit. O. Well-developed female type 1 skin, no acute distress, alert and oriented Face, areas of legs examined and normal except has faint sage patches suprabrow and lateral forehead, has 4mm pink pedunculated papule lt post leg, has soft 2cm nodule rt leg below knee with overlyinglichenification Assessment: / Plan: 1. Melasma Partial response to hydroquinone compound. Discussed can be difficult to completely clear; she had tried peels and lasers prior to coming here but is interested in further topical therapy. Will add AA agent (see below) to residual lesions. Hold off on prior agent in these areas. Continue sunscreen use. Azelaic Acid: 20% Kojic Acid: 6% Niacinamide: 4% Vehicle: Cream 2. Irritated fibroma or nevus/leg Shave of the lesion noted above to remove and confirm diagnosis. The procedure, risks, benefits, alternatives and expected outcomes were discussed with the patient and consent was obtained. Time out called. Patient identified, procedure verified, site identified and verified. Patient and staff present in agreement. Area prepped with alcohol and anesthetized using 0.2 ropivacaine. Shave of lesion performed. 20% AlCl and bandaging applied. Specimen sent to pathology. Patient instructed in routinepost-op care. 3. Rt leg nodule - likely lipoma given softness but some lichenification overtop (from shaving?) suggests possible dermatofibroma component. Offered removal as it is growing; she will consider and let me know if lesion continues to chage Follow up: 6mo Tito Escobedo MD 09/25/2023 11:57 AM documented in this encounter Nursing Notes * Tiana Carreno, MED ASSIST - 09/25/2023 11:31 AM EDT Chief Complaint Patient presents with Follow Up Acne Patient here for F/u acne and brown spots on face 03/27/2023 documented in this encounter Plan of Treatment Upcoming Encounters Date Type Department Care Team (Late st Contact Info) Description 09/28/2023 3:30 PM EST Immunization/Injec tion Allergy/Immunology [facility] [address] [place] [address] Corin Nurse Allergy [facility] 200 [facility] [place] [address] 10/08/2023 9:30 AM EST Office Visit Gastroenterology, [facility] 132 [place] [address] Onur Aburto CRNP 132 [place] [address] 01/01/2024 10:20 AM EST Office Visit General Internal Medicine [facility] [address] [place] [address] Lorelei Tam MD [facility] [place] [address] 01/12/2024 10:15 AM EST Imaging Radiology [address] 132 [place] [address] 01/14/2024 10:00 AM EST Office Visit Allergy/Immunology [facility] [place] [address] [place] [place] [address] Cayden Stewart MD [address] [place] [address] [address] 03/25/2024 9:45 AM EDT Office Visit Dermatology [facility] [place] [address] [place] [place] [address] Tito Escobedo MD [address] [place] [address] Pending Results Name Type Priority Associated Diagnoses Date /Time SURGICAL PATHOLOGY Pathology Routine Neoplasm of skin of leg or hip, benign, left 09/25/2023 11:55 AM EDT Scheduled Procedures Name Priority Associated Diagnoses Date/Ti [...] as of this encounter Visit Diagnoses Diagnosis Neoplasm of skin of leg or hip, benign, left- Primary Melasma Other dyschromia Skin lesion Unspecified disorder of skin and subcutaneous tissue documented in this encounter Care Teams Eeg Technologist Relationship Specialty Start Date End Date Lorelei Tam MD 200 [facility] [place] [address] PCP - General Internal Medicine 12/27/22 documented as of this encounter
--- OUTSIDE RECORDS SUMMARY | 2024-02-02 06:29 | External Medical Summary | Summary of Care ---
Author Name Unknown Organization [facility] Address [address] [place] [address] Phone [phone] Care Team Providers Care Cooperative Education Coordinator Name Role Phone Lorelei Tam MD Primary Care Provider [phone] Reason for Visit * Reason Comments Outpatient Testing Encounter Details Date Type Department Care Team Description 09/10/2023 Laboratory Laboratory [facility] Haley Coombs [address] [place] [phone] [facility] [address] [place] [address] Iron deficiency anemia, unspecified iron deficiency anemia type Allergies Active Allergy Reactions Severity Noted Date Comments Pollen 04/28/2022 documented as of this encounter (statuses as of 09/10/2023) Medications Medication Sig Dispensed Refills Start Date [...] as of this encounter (statuses as of 09/10/2023) Active Problems Problem Noted Date Iron deficiency anemia 07/02/2023 Hyperlipidemia with target LDL less than 100 04/28/2022 Herpes simplex virus infection BMI 31.0-31.9,adult 04/28/2022 PTSD (post-traumatic stress disorder) Eczema 04/28/2022 Adenomatous polyp of colon 04/28/2022 documented as of this encounter (statuses as of 09/10/2023) Immunizations Name Administration Dates Next Due COVID-19 [...] drink = 0.6 oz pur e alcohol) Alcohol Habits Answer Date Recorded How often do you have a drink containing alcohol ? Never 04/28/2022 How many drinks containing a lcohol do you have on a typical day when you are drinking? Not asked How often do you have six or more drinks on one occasion? Not asked Food Insecurity Answer Date Recorded Within the past 12 months, y ou worried that your food would run out before you got money to buy more. Never true 12/26/2022 Within the past 12 months, t he food you bought just didn't last and you didn't have money to get more. Never true 12/26/2022 Sex Assigned at Date Recorded Female 08/21/2022 1:37 PM E DT Job Start Date Occupation Industry Not on file Not on file Not on file documented as of this encounter Plan of Treatment Upcoming Encounters Date Type Specialty Care Team Description 09/14/2023 Immunization/[facility] [place], Nurse Allergy [facility] [address] [place] [address] 09/17/2023 Immunization/Injecti [facility] [place], Nurse Allergy [facility] [address] [place] [address] 09/22/2023 Office Visit General Surgery Ashlyn Santo MD [address] [place] [address] 09/24/2023 Immunization/Injecti [facility] [place], Nurse Allergy [facility] [address] [place] [address] 09/25/2023 Office Visit Dermatology Tito Escobedo MD [address] [place] [address] 09/28/2023 Immunization/Injecti on [facility] [place], Nurse Allergy [facility] [address] [place] [address] 10/08/2023 Office Visit Gastroenterology Onur Aburto CRNP [address] [place] [address] 01/01/2024 Office Visit Internal Medicine Lorelei Tam MD [address] [place] [address] 01/12/2024 Imaging Radiology 01/14/2024 Office Visit Allergy & Immunology Cayden Stewart MD 200 [facility] [place] [address] Pending Results Name Type Priority Associated Diagnoses Date /Time CBC WITH WBC DIFFERENTIAL Lab Routine Iron deficiency anemia, unspecified iron deficiency anemia type 09/10/2023 3:34 PM EDT FERRITIN Lab Routine Iron deficiency anemia, unspecified iron deficiency anemia type 09/10/2023 3:34 PM EDT CBC Lab Routine Iron deficiency anemia, unspecified iron deficiency anemia type 09/10/2023 3:34 PM EDT DIFFERENTIAL, AUTOMATED Lab Routine Iron deficiency anemia, unspecified iron deficiency anemia type 09/10/2023 3:34 PM EDT Scheduled Procedures Name Priority Associated Diagnoses [...] deficiency anemia type documented in this encounter Care Teams Cooperative Education Coordinator Relationship Specialty Start Date End Date Lorelei Tam MD 200 [facility] [place] [address] PCP - General Internal Medicine 12/27/22 documented as of this encounter
--- OUTSIDE RECORDS SUMMARY | 2024-02-02 06:29 | External Medical Summary ---
Author Name Unknown Address Unknown Organization K01:[facility] [place] [address] [place] [address] Laboratory Report Ordering Provider Test Date Status PREETHI PAUL 09/10/2023 15:34:57 Final Observation Date Value Abnormality Reference (Units ) Status Folic Acid 09/10/2023 15:34:57 >20.0 >4.5 (ng/ mL) Final Performing Location [facility] [place] [facility] [address] [place] [address]
--- OUTSIDE RECORDS SUMMARY | 2024-02-02 06:29 | External Medical Summary | Summary of Care ---
Author Name Unknown Organization [facility] Address [address] [place] [address] Phone [phone] Care Team Providers Care Web Content & Social Media Manager Name Role Phone Lorelei Tam MD Primary Care Provider [phone] Reason for Visit * Reason Onset Date Comments Allergy Injection 09/17/2023 Encounter Details Date Type Department Care Team (Late st Contact Info) Description 09/17/2023 2:15 PM EDT Immunization/I njection Allergy/Immunology [facility] Haley Coombs [address] [place] [address] Corin Nurse Allergy [facility] [address] [place] [address] Allergic rhinitis, unspecified seasonality, unspecified trigger* Allergies Active Allergy Reactions Criticality Noted Date Comments Pollen 04/28/2022 documented as of this encounter (statuses as of 09/17/2023) Medications Medication Sig Dispensed Refills Start Date [...] as of this encounter (statuses as of 09/17/2023) Active Problems Problem Noted Date Diagnosed Date Iron deficiency anemia 07/02/2023 Hyperlipidemia with target LDL less than 100 04/2022 Herpes simplex virus infection 04/28/2022 BMI 31.0-31.9,adult 04/28/2022 PTSD (post-traumatic stress disorder) 04/28/2022 Eczema 04/28/2022 Adenomatous polyp of colon 04/28/2022 documented as of this encounter (statuses as of 09/17/2023) Immunizations Name Administration Dates Next Due COVID-19 [...] Progress Notes * Heike Serrano LPN - 09/17/2023 2:26 PM EDT Pre-injection Questionnaire Patient identified by stating name [...] Care Team (Late st Contact Info) Description 09/22/2023 3:00 PM EDT Office Visit General Surgery, [facility] [address] [facility]anto [facility] [address] [facility] [address] 09/24/2023 9:00 AM EDT Immunization/Injec tion Allergy/Immunology [facility] [address] [place] [address] [place], Nurse Allergy Scenery [address] [place] [address] 09/25/2023 11:30 AM EDT Office Visit Dermatology [facility] [address] [place] [address] Tito Escobedo MD [address] [place] [address] 09/28/2023 3:30 PM EST Immunization/Injec tion Allergy/Immunology [facility] [address] [place] [address] Corin Nurse Allergy Scenery [address] [place] [address] 10/08/2023 9:30 AM EST Office Visit Gastroenterology, [facility] [address] [place] [address] Onur Aburto CRNP 132 [place] [address] 01/01/2024 10:20 AM EST Office Visit General Internal Medicine [facility] [address] [place] [address] Lorelei Tam MD [address] [facility] [place] [address] 01/12/2024 10:15 AM EST Imaging Radiology [address] 132 [place] [address] 01/14/2024 10:00 AM EST Office Visit Allergy/Immunology [facility] [address] [place] [address] Cayden Stewart MD 200 [facility] [place] [address] Scheduled Procedures Name Priority Associated Diagnoses Date/Ti [...] Primary documented in this encounter Care Teams Web Content & Social Media Manager Relationship Specialty Start Date End Date Lorelei Tam MD [address] [place] [address] PCP - General Internal Medicine 12/27/22 documented as of this encounter
--- OUTSIDE RECORDS SUMMARY | 2024-02-02 06:29 | External Medical Summary ---
Author Name Unknown Address Unknown Organization K01:[facility] - [address] [place] [address] Laboratory Report Ordering Provider Test Date Status PREETHI PAUL 09/10/2023 15:34:57 Final Observation Date Value Abnormality Reference (Units ) Status Vitamin B12 09/10/2023 15:34:57 126 [id number] (pg/mL) Final Performing Location [facility] - [address] [place] [address]
--- OUTSIDE RECORDS SUMMARY | 2024-02-02 06:29 | External Medical Summary | Summary of Care ---
Author Name Unknown Organization [facility] Address [address] [place] [address] Phone [phone] Care Team Providers Care Mutual Funds Agent Name Role Phone Lorelei Tam MD Primary Care Provider [phone] Reason for Visit * Reason Onset Date Comments Allergy Injection 09/24/2023 Encounter Details Date Type Department Care Team (Late st Contact Info) Description 09/24/2023 9:00 AM EDT Immunization/I njection Allergy/Immunology [facility] Haley Coombs [address] [place] [address] Corin Nurse Allergy [facility] [address] [place] [address] Allergic rhinitis, unspecified seasonality, unspecified trigger* Allergies Active Allergy Reactions Criticality Noted Date Comments Pollen 04/28/2022 documented as of this encounter (statuses as of 09/24/2023) Medications Medication Sig Dispensed Refills Start Date [...] as of this encounter (statuses as of 09/24/2023) Active Problems Problem Noted Date Diagnosed Date Iron deficiency anemia 07/02/2023 Hyperlipidemia with target LDL less than 100 04/2022 Herpes simplex virus infection 04/28/2022 BMI 31.0-31.9,adult 04/28/2022 PTSD (post-traumatic stress disorder) 04/28/2022 Eczema 04/28/2022 Adenomatous polyp of colon 04/28/2022 documented as of this encounter (statuses as of 09/24/2023) Immunizations Name Administration Dates Next Due COVID-19 [...] Progress Notes * Kandis Luna LPN - 09/24/2023 9:21 AM EDT Pre-injection Questionnaire Patient identified by stating [...] 09/25/2023 11:30 AM EDT Office Visit Dermatology [place] [address] [place] [address] Tito Escobedo MD 16 [place] [address] 09/28/2023 3:30 PM EST Immunization/Injec tion Allergy/Immunology [facility] [address] [place] [address] Corin Nurse Allergy [facility] 200 [facility] [place] [address] 10/08/2023 9:30 AM EST Office Visit Gastroenterology, [facility] [address] [place] [address] Onur Aburto CRNP 132 [place] [address] 01/01/2024 10:20 AM EST Office Visit General Internal Medicine [facility] 200 [facility] [place] [address] Lorelei Tam MD 200 [facility] [place] [address] 01/12/2024 10:15 AM EST Imaging Radiology [address] [place] [address] 01/14/2024 10:00 AM EST Office Visit Allergy/Immunology [facility] [address] [place] [address] Cayden Stewart MD [address] [place] [address] Scheduled Procedures Name Priority Associated Diagnoses Date/Ti [...] Primary documented in this encounter Care Teams Mutual Funds Agent Relationship Specialty Start Date End Date Lorelei Tam MD 200 [facility] [place] [address] PCP - General Internal Medicine 12/27/22 documented as of this encounter
--- OUTSIDE RECORDS SUMMARY | 2024-02-02 06:29 | External Medical Summary | Summary of Care ---
Author Name Unknown Organization [facility] Address [address] [place] [address] Phone [phone] Care Team Providers Care Grain Blender Name Role Phone Lorelei Tam MD Primary Care Provider [phone] Reason for Visit * Reason Comments NEW PATIENT Hemorrhoids * Evaluate & Treat - Unlimited Visits (Within 30 days (routine)) - Authorized Specialty Diagnoses / Procedures Referred By Contac t Referred To Contact Colon and Rectal Surgery / General Surgery Diagnoses Iron deficiency anemia, unspecified iron deficiency anemia type Internal hemorrhoids without complication Onur Aburto CRNP [address] [place] [address] Referral ID Status Reason Start Date Expiration Date Visits Requested Visits Authorized [id number] Authorized Specialty Services Required 07/01/2023 [id number] Encounter Details Date Type Department Care Team (Late st Contact Info) Description 09/22/2023 3:00 PM EDT Office Visit General Surgery, [facility] [address] [place] [address] Ashlyn Santo MD [address] [place], [place] [phone] Bleeding internal hemorrhoids*; Internal hemorrhoids without complication Allergies Active Allergy Reactions Criticality Noted Date Comments Pollen 04/28/2022 documented as of this encounter (statuses as of 09/22/2023) Medications Medication Sig Dispensed Refills Start Date [...] as of this encounter (statuses as of 09/22/2023) Active Problems Problem Noted Date Diagnosed Date Iron deficiency anemia 07/02/2023 Hyperlipidemia with target LDL less than 100 04/2022 Herpes simplex virus infection 04/28/2022 BMI 31.0-31.9,adult 04/28/2022 PTSD (post-traumatic stress disorder) 04/28/2022 Eczema 04/28/2022 Adenomatous polyp of colon 04/28/2022 documented as of this encounter (statuses as of 09/22/2023) Immunizations Name Administration Dates Next Due COVID-19 [...] Date Smoking Tobacco: Never Smokeless Tobacco: Never Tobacco Cessation:Counseling Given: Not Answered Alcohol Use Standard Drinks/Week Comments Never 0 [...] Sign Reading Time Taken Comments Blood Pressure 117/64 09/22/2023 3:04 PM EDT Pulse 77 09/22/2023 3:04 PM EDT Temperature 36.8 C (98.3 F) 09/22/2023 3:04 PM ED T Respiratory Rate - - Oxygen Saturation - - Inhaled Oxygen Concentration - - Weight 80.5 kg (177 lb 6.4 oz) 09/22/2023 3:04 P M EDT Height - - Body Mass Index 33.52 06/30/2023 1:03 PM EDT documented in this encounter Patient Instructions * Patient Instructions* Ashlyn Santo MD - 09/22/2023 3:52 PM EDT POST-OPERATIVE INSTRUCTIONS FOR AMBULATORY ANORECTAL SURGERY Wound Care -Take all the bandages off in the late afternoon or evening and take the first hot bath -The bath water should be as warm as tolerable, without causing almonte -It is NOT necessary to add anything to the water (such as Epsom salt) -Hot baths should be used at least 3-4 times each day AND especially after each bowel movement -The "packing" (if present) should be removed from the anus during the first bath -Expect some oozing or slight bleeding -No bandages are necessary, but may be used as desired to absorb any drainage: plain gauze or maxi pads Pain -Start taking the gabapentin 2 days prior to surgery, 1 tab twice daily. Continue after surgery until the prescription runs out. -The anesthetic that was injected at the time of surgery should last 3-6 hours -It is normal for the anal area to be very painful for several days to a week, and especially afterthe initial bowel movements -HOT BATHS PROVIDE THE BEST PAIN RELIEF, and should be used liberally -The prescription you have been given is for a strong narcotic pain medication. Take 1-2 tabs every4-6 hours as needed for pain -Use the pain medication as necessary, but be aware that it will cause some degree of constipation -You should take Tylenol (XS, 1000mg) every 6 hours and ibuprofen (3-4 tabs, 600-800mg) every 6 hours around the clock for the first day or two. That means, you should be taking either Tylenol or ibuprofen every 3 hours. Use the oxycodone in addition to that as needed. -Dermaplast (or something like it) is a freezing spray available at most drug [employer] (or on [employer])and is inexpensive. Patients before have reported that this feels very good on the area to relieve pain. Diet -Eat as much fiber as possible: fruits, vegetables, salads, whole grain breads, bran cereals, bran muffins, prunes and prune juice -Drink lots of fluids: water and juices -Avoid spicy foods until the wounds are healed Bowel Movements -It is common not to move your bowels for 2 or 3 days after surgery -It is important to try to avoid becoming constipated -A high fiber diet is essential -Take a stool softener such as Metamucil once or twice a day, and/or Colace three times a day -Excessive pressure in the rectum (or even pain) may indicate the need to have a bowel movement -If a laxative is required usually try two tablespoons of Milk of Magnesia; if this is not effective, take Miralax -THE FIRST BOWEL MOVEMENT HURTS!!! Activity -You may resume normal activities, including exercising, as soon as you feel up to it -You can return to work whenever you feel able -There is no way you can do yourself any harm or affect the success of the surgery by excessive activity Things To Watch For -A small amount of bleeding or oozing is normal, especially with bowel movements; if bleeding is heavy, or does not stop after bowel movements, call me immediately. -It is not unusual to have difficulty urinating after surgery; often it is necessary it urinate while sitting in the hot bath; frequent urination of very small volumes is abnormal and requires that you call me. If you have not urinated at all by the first evening, you must call. Follow-up Information -If there are questions or problems either I or one of my partners can be reached 24 hours a day, seven days a week. Call the office and the service will take a message and arrange a call back. documented in this encounter Progress Notes * Ashlyn Santo MD - 09/22/2023 3:17 PM EDT Images from the original note were not included. COLORECTAL SURGERY [facility] Lima Dickerson [id number] 09/22/2023 Cc: Hemorrhoids/iron deficiency anemia HPI: Lima Dickerson is a 48 year old female referred by TOÑO C[place] who presents in clinicfor hemorrhoids. Twins, and 10 lb baby after that. She has had banding before. Didn't help. Banded during a colonoscopy and that was painful. Didn't help. Bleeds 3 times per week. Bleeds 10-15min, constant spray. Lifting will cause bleeding. Takaing pre-pro biotics, fiber, and pre-camden vitamins. Not constipated. Doesn't sit a long time, doenst find ifdifficult. Capsule Endoscopy 07/08/23: Last Colonoscopy: 05/28/2023 Impression: - The examined colon appeared normal. - One 4 mm polyp in the transverse colon, removed with a cold biopsy forceps. Resected and retrieved. - Internal hemorrhoids. - The examination was otherwise normal on direct and retroflexion views. EGD 05/28/23: Impression: - Normal esophagus. - Z-line regular, 35 cm from the incisors. - Normal stomach. Biopsied. - Normal duodenal bulb and second portion of the duodenum. Biopsied. Review of Systems: Review of Systems Constitutional: Negative for activity change, appetite change, fatigue, fever and unexpected weightchange. HENT: Negative for ear pain and hearing loss. Eyes: Negative for visual disturbance. Respiratory: Negative for chest tightness and shortness of breath. Cardiovascular: Negative for chest pain and palpitations. Gastrointestinal: Positive for anal bleeding. Negative for abdominal distention and abdominal pain. Genitourinary: Negative for difficulty urinating. Musculoskeletal: Negative for arthralgias. Hematological: Does not bruise/bleed easily. All other systems reviewed and negative. Past Medical History: Diagnosis Date Adenomatous polyp of colon 04/28/2022 Anemia Eczema 04/28/2022 Hemorrhoids Herpes simplex virus infection 04/28/2022 Hyperlipidemia with target LDL less than 100 04/28/2022 PTSD (post-traumatic stress disorder) 04/28/2022 Past Surgical History: Procedure Laterality Date COLONOSCOPY, DIAGNOSTIC (RECTUM) 05/28/2023 hemorrhoids/biopsies show adenomatous polyps/recall recall 5 years/COLONOSCOPY FLEXIBLE PROXIMAL DIAGNOSTIC performed by Melissa Tabor MD at ENDOSCOPY [facility] EGD, FLEXIBLE, DIAGNOSTIC 05/28/2023 biopsies from stomach show H pylori/ESOPHAGOGASTRODUODENOSCOPY (EGD), FLEXIBLE, TRANSORAL, DIAGNOSTIC performed by Melissa Tabor MD at ENDOSCOPY [facility] NV SURGICAL PATHOLOGY LEVEL 3 GROSS & MICROSCOPIC EXAMINATION NV TONSILLECTOMY & ADENOIDECTOMY AGE 12 OR MORE Current Outpatient Medications Medication Sig Dispense Refill [...] No current facility-administered medications for this visit. Review of patient's allergies indicates: Allergen Reactions Environmental [Pollen] Family History Problem Relation Age of Onset Lung cancer Mother 74 2nd hand smoking Hyperlipidemia Mother Skin cancer Mother Heart disease Father 44 s/p CABG Hyperlipidemia Father Alcohol and Other Disorders Associated Father Alcoholic Lung cancer Grandfather (Maternal) Heart attack Grandmother (Paternal) Heart attack Grandfather (Paternal) Social History Tobacco Use Smoking status: Never Smokeless tobacco: Never Vaping Use Vaping Use: Never used Substance Use Topics Alcohol use: Never Drug use: Never Comment: Uses CBD/THC gummies at times Physical Examination: BP 117/64 | Pulse 77 | Temp 36.8 C (98.3 F) | Wt 80.5 kg (177 lb 6.4 oz) | BMI 33.52 kg/m | BSA 1.86 m Physical Exam Constitutional: General: She is not in acute distress. Appearance: She is well-developed. HENT: Head: Normocephalic and atraumatic. Eyes: Pupils: Pupils are equal, round, and reactive to light. Cardiovascular: Rate and Rhythm: Normal rate. Pulmonary: Effort: Pulmonary effort is normal. No respiratory distress. Abdominal: Palpations: Abdomen is soft. Genitourinary: Comments: External Exam: Circumferential external hemorrhoids, moderately sized MILES: Normal tone, no mucosal abnormalities Anoscopy: (Performed by Dr. Santo) The anoscope was inserted into the anal canal. The patient tolerated this well. A circumferential inspection of the anal canal was performed and was notable for large, friable internal hemorrhoids in the typical quadrants, most notable perhaps anteriorly. Musculoskeletal: General: Normal range of motion. Cervical back: Normal range of motion. Skin: General: Skin is warm and dry. Findings: No erythema. Neurological: Mental Status: She is alert and oriented to person, place, and time. Labs: NA Radiology: NA Assessment: 48 year old female with large, bleeding internal hemorrhoids (grade III), causing iron deficiency anemia. Plan: 1. Proceed with EUA, excisional hemorrhoidectomy. 2. Pre-op gabapentin, 300mg BID, to start 2 days prior to hemorrhoidectomy, prescribed. Attending Attestation: I have personally interviewed the patient and/or family, and performed pertinent physical examination. I personally formulated the above assessment and plan, based on the information available to me today. My assessment was discussed in detail with the patient and all feasible options were entertained. Ample time was allotted for discussion of my findings and then all questions were answered in detail to the patient's and/or family's satisfaction. Ashlyn Santo MD [address] [place] [phone] 09/22/2023 (This note was completed using the dictation program Fluency Direct. As such, there may be misspellings, word substitutions, or other variations that should not change the essence of the clinical content of this encounter note. If there is need for further clarification, please direct questions to the provider listed above.) documented in this encounter Nursing Notes * Janeth Alvarez LPN - 09/22/2023 3:05 PM EDT Chief Complaint Patient presents with NEW PATIENT Hemorrhoids Patient has had these for a while since she had her last son, they do bleed and she has had them banded but it did not work. documented in this encounter Plan of Treatment Upcoming Encounters Date Type Department Care Team (Late st Contact Info) Description 09/24/2023 9:00 AM EDT Immunization/Injec tion [facility]ergy[facility] Haley Adams [address] [place] [address] [place], Nurse Allergy Scenery [address] [place] [address] 09/25/2023 11:30 AM EDT Office Visit Dermatology [facility] 200 [facility] [place] [address] Tito Escobedo MD [address] [place] [address] 09/28/2023 3:30 PM EST Immunization/Injec tion Allergy/Immunology [facility] [address] [place] [address] Corin, Nurse Allergy [facility] 200 [facility] [place] [address] 10/08/2023 9:30 AM EST Office Visit Gastroenterology, [facility] 132 [place] [address] Onur Aburto CRNP 132 [place] [address] 01/01/2024 10:20 AM EST Office Visit General Internal Medicine [facility] 200 [facility] [place] [address] Lorelei Tam MD 200 [facility] [place] [address] 01/12/2024 10:15 AM EST Imaging Radiology [address] 132 [place] [address] 01/14/2024 10:00 AM EST Office Visit Allergy/Immunology [facility] [address] [place] [address] Cayden Stewart MD 200 [facility] [place] [address] Scheduled Procedures Name Priority Associated Diagnoses Date/Ti me COLONOSCOPY FLEXIBLE PROXIMAL DIAGNOSTIC Recall History of colon polyps Health Maintenance Due Date Last Done Comments DTaP,Tdap,and Td Vaccines (1 - Tdap) 1996 Pap Smear 1998 Cervical Cancer Screening 2007 HPV/Co-Test 2007 COVID-19 Vaccine (24 season) 2023 11/19/2022, 10/20/2021, 03/07/2021, Additional history [...] as of this encounter Visit Diagnoses Diagnosis Bleeding internal hemorrhoids- Primary Internal hemorrhoids with other complication Internal hemorrhoids without complication Internal hemorrhoids without mention of complication documented in this encounter Care Teams Grain Blender Relationship Specialty Start Date End Date Lorelei Tam MD 200 [facility] [place] [address] PCP - General Internal Medicine 12/27/22 documented as of this encounter
--- OUTSIDE RECORDS SUMMARY | 2024-02-02 06:30 | External Medical Summary | Summary of Care ---
Author Name Unknown Organization [facility] Address [address] [place] [address] Phone [phone] Care Team Providers Care Quality Control Auditor Name Role Phone Lorelei Tam MD Primary Care Provider [phone] Reason for Visit * Reason Onset Date Comments Allergy Injection 08/24/2023 Encounter Details Date Type Department Care Team Description 08/24/2023 Immunization/In jection Allergy/Immunology [facility] [place] [address] [place] [address] [place] Nurse Allergy [facility] [address] [place] [address] Allergic rhinitis, unspecified seasonality, unspecified trigger* Allergies Active Allergy Reactions Severity Noted Date Comments Pollen 04/28/2022 documented as of this encounter (statuses as of 08/24/2023) Medications Medication Sig Dispensed Refills Start Date [...] as of this encounter (statuses as of 08/24/2023) Active Problems Problem Noted Date Iron deficiency anemia 07/02/2023 Hyperlipidemia with target LDL less than 100 04/28/2022 Herpes simplex virus infection BMI 31.0-31.9,adult 04/28/2022 PTSD (post-traumatic stress disorder) Eczema 04/28/2022 Adenomatous polyp of colon 04/28/2022 documented as of this encounter (statuses as of 08/24/2023) Immunizations Name Administration Dates Next Due COVID-19 mRNA, LNP-s, No Pre serve, 2-Dose Series (Moderna) 10/20/2021,03/07/2021,02/07/2021 Covid-19, Mrna, Lnp-s, Pf, B ivalent, 30 Mcg, IM, 12 yrs and above ([employer]) 11/19/2022 Hepatitis B, 20+ yrs 07/06/2023,02/04/2023,01/05 SEASONAL [...] Progress Notes * Kandis Luna LPN - 08/24/2023 5:37 PM EDT Pre-injection Questionnaire Patient identified by [...] Encounters Date Type Specialty Care Team Description 08/27/2023 Immunization/Injecti on Allergy & Immunology Nurse [place] [facility] [address] [place] [address] 08/31/2023 Immunization/Injecti on Allergy & Immunology [place] Nurse Allergy [facility] [address] [place] [address] [address] 09/03/2023 Immunization/Injecti on Allergy & Immunology [place], Nurse Allergy Scenery [address] [place] [address] 09/07/2023 Immunization/Injecti on Allergy & Immunology [place], Nurse Allergy Scenery [address] [place] [address] 09/08/2023 Office Visit General Surgery Ashlyn Santo MD [address] [place] [address] 09/10/2023 Immunization/Injecti on Allergy & Immunology [place], Nurse Allergy Scenery [address] [place] [address] 09/14/2023 Immunization/Injecti on Allergy & Immunology [place], Nurse Allergy Scen[facility] [address] [place] [address] 09/17/2023 Immunization/Injecti on Allergy & Immunology [place], Nurse Allergy Scenery [address] [place] [address] 09/24/2023 Immunization/Injecti on Allergy & Immunology [place], Nurse Allergy Scenery [address] [place] [address] 09/25/2023 Office Visit Dermatology Tito Escobedo MD [address] [place] [address] 09/28/2023 Immunization/Injecti on Allergy & Immunology [place], Nurse Allergy Scenery [address] [place] [address] 10/08/2023 Office Visit Gastroenterology Onur Aburto CRNP 132 [facility] [place] [address] 01/01/2024 Office Visit Internal Medicine Lorelei Tam MD 200 [place] [address] 01/12/2024 Imaging Radiology 01/14/2024 Office Visit Allergy & Immunology Cayden Stewart MD 200 [place] [address] Health Maintenance Due Date Last Done Comments DTaP,Tdap,and Td Vaccines (1 - Tdap) 1996 Pap Smear 1998 Cervical Cancer Screening 2007 HPV/Co-Test 2007 Influenza Vaccine (FLU shot) (#1) 2023 08/09/2022 Depression Screening 12/29/2023 12/29/2022 Mammogram 01/07/2024 01/07/2023, 01/02/2023 Diabetes Screening 06/29/2026 06/29/2023, 12/27/2022 COLONOSCOPY-EVERY 5 YRS AGES 18-100 05/28/2028 05/28/2023, 05/28/2023 Lipid Panel 06/29/2028 06/29/2023, 12/27/2022 COVID-19 Vaccine Completed 11/19/2022, , 03/07/2021, Additional history exists Colonoscopy Discontinued 05/28/2023, 05/28/2023 Colorectal Cancer Screening [...] Primary documented in this encounter Care Teams Quality Control Auditor Relationship Specialty Start Date End Date Lorelei Tam MD 200 [place] [address] PCP - General Internal Medicine 12/27/22 documented as of this encounter
--- OUTSIDE RECORDS SUMMARY | 2024-02-02 06:30 | External Medical Summary | Summary of Care ---
Author Name Unknown Organization [facility] Address [address] [place] [address] Phone [phone] Care Team Providers Care Staff Attorney Name Role Phone Lorelei Tam MD Primary Care Provider [phone] Reason for Visit * Reason Onset Date Comments Allergy Injection 09/03/2023 Encounter Details Date Type Department Care Team Description 09/03/2023 Immunization/In jection Allergy/Immunology [facility] [place] [address] [place] [address] [place] Nurse Allergy [facility] [address] [place] [address] Allergic rhinitis, unspecified seasonality, unspecified trigger* Allergies Active Allergy Reactions Severity Noted Date Comments Pollen 04/28/2022 documented as of this encounter (statuses as of 09/03/2023) Medications Medication Sig Dispensed Refills Start Date [...] as of this encounter (statuses as of 09/03/2023) Active Problems Problem Noted Date Iron deficiency anemia 07/02/2023 Hyperlipidemia with target LDL less than 100 04/28/2022 Herpes simplex virus infection BMI 31.0-31.9,adult 04/28/2022 PTSD (post-traumatic stress disorder) Eczema 04/28/2022 Adenomatous polyp of colon 04/28/2022 documented as of this encounter (statuses as of 09/03/2023) Immunizations Name Administration Dates Next Due COVID-19 mRNA, LNP-s, No Pre serve, 2-Dose Series (Moderna) 10/20/2021,03/07/2021,02/07/2021 Covid-19, Mrna, Lnp-s, Pf, B ivalent, 30 Mcg, IM, 12 yrs and above ([employer]) 11/19/2022 Hepatitis B, 20+ yrs 07/06/2023,02/04/2023,01/05 SEASONAL [...] Progress Notes * Kandis Luna LPN - 09/03/2023 9:05 AM EDT Pre-injection Questionnaire Patient identified by [...] Encounters Date Type Specialty Care Team Description 09/07/2023 Immunization/Injecti on Allergy & Immunology Nurse [place] [facility] [address] [place] [address] 09/08/2023 Office Visit General Surgery Ashlyn Santo MD [address] [facility] [place] [address] 09/10/2023 Immunization/Injecti on Allergy & Immunology [place], Nurse Allergy Scenery [address] [place], [place] [address] 09/14/2023 Immunization/Injecti on Allergy & Immunology [place], Nurse Allergy Scenery [address] [place] [address] 09/17/2023 Immunization/Injecti on Allergy & Immunology [place], Nurse Allergy Scenery [address] [place] [address] 09/24/2023 Immunization/Injecti on Allergy & Immunology [place], Nurse Allergy Scenery [address] [place], [place] [address] 09/25/2023 Office Visit Dermatology Tito Escobedo MD [address] [place] [address] 09/28/2023 Immunization/Injecti on Allergy & Immunology [place], Nurse Allergy Scenery [address] [place], [place] [address] 10/08/2023 Office Visit Gastroenterology Onur Aburto CRNP [address] [place] [address] 01/01/2024 Office Visit Internal Medicine Lorelei Tam MD [address] [place], [place] [address] 01/12/2024 Imaging Radiology 01/14/2024 Office Visit Allergy & Immunology Cayden Stewart MD [address] [place], [place] [address] Health Maintenance Due Date Last Done Comments [...] Primary documented in this encounter Care Teams Staff Attorney Relationship Specialty Start Date End Date Lorelei Tam MD 200 [place] [address] PCP - General Internal Medicine 12/27/22 documented as of this encounter
--- OUTSIDE RECORDS SUMMARY | 2024-02-02 06:30 | External Medical Summary ---
Author Name Unknown Address Unknown Organization K09:[facility] [place] [place] [id number] Laboratory Report Ordering Provider Test Date Status NUBIA RUSHING 09/10/2023 15:34:57 Final Observation Date Value Abnormality Reference (Units ) Status Nucleated erythrocytes/100 leukocytes [Ratio] in Blood by Automated count 09/10/2023 15:34:57 Final Performing Location [facility] [place] [address]
--- OUTSIDE RECORDS SUMMARY | 2024-02-02 06:30 | External Medical Summary | Summary of Care ---
Author Name Unknown Organization [facility] Address [address] [place] [address] Phone [phone] Care Team Providers Care Clinic Md Associate Name Role Phone Lorelei Tam MD Primary Care Provider Reason for Visit * Reason Onset Date Comments Allergy Injection 08/20/2023 Encounter Details Date Type Department Care Team Description 08/20/2023 Immunization/In jection Allergy/Immunology [facility] [place] [address] [place] [address] [place] Nurse Allergy [facility] [address] [place] [address] Allergic rhinitis, unspecified seasonality, unspecified trigger* Allergies Active Allergy Reactions Severity Noted Date Comments Pollen 04/28/2022 documented as of this encounter (statuses as of 08/20/2023) Medications Medication Sig Dispensed Refills Start Date [...] as of this encounter (statuses as of 08/20/2023) Active Problems Problem Noted Date Iron deficiency anemia 07/02/2023 Hyperlipidemia with target LDL less than 100 04/28/2022 Herpes simplex virus infection BMI 31.0-31.9,adult 04/28/2022 PTSD (post-traumatic stress disorder) Eczema 04/28/2022 Adenomatous polyp of colon 04/28/2022 documented as of this encounter (statuses as of 08/20/2023) Immunizations Name Administration Dates Next Due COVID-19 mRNA, LNP-s, No Pre serve, 2-Dose Series (Moderna) 10/20/2021,03/07/2021,02/07/2021 Covid-19, Mrna, Lnp-s, Pf, B ivalent, 30 Mcg, IM, 12 yrs and above (Pfizer) 11/19/2022 Hepatitis B, 20+ yrs 07/06/2023,02/04/2023,01/05 Seasonal Influenza, PF, 6 mo ns & Above, IM , (Flulaval) 08/09/2022 documented as of this encounter Social [...] Progress Notes * Kandis Luna LPN - 08/20/2023 9:19 AM EDT Pre-injection Questionnaire Patient identified by [...] Encounters Date Type Specialty Care Team Description 08/24/2023 Immunization/Injecti on Allergy & Immunology Nurse [place] [address] [place] [address] [address] 08/27/2023 Immunization/Injecti on Allergy & Immunology [place] Nurse Allergy Scen[facility] [address] [place] [address] [address] 08/31/2023 Immunization/Injecti on Allergy & Immunology [place], Nurse Allergy Scenery [address] [place] [address] 09/03/2023 Immunization/Injecti on Allergy & Immunology [place], Nurse Allergy Scenery [address] [place] [address] 09/07/2023 Immunization/Injecti on Allergy & Immunology [place], Nurse Allergy Scenery [address] [place] [address] 09/08/2023 Office Visit General Surgery Ashlyn Santo MD [address] [place] [address] 09/10/2023 Immunization/Injecti on Allergy & Immunology [place], Nurse Allergy Scenery [address] [place] [address] 09/14/2023 Immunization/Injecti on Allergy & Immunology [place], Nurse Allergy Scenery [address] [place] [address] 09/17/2023 Immunization/Injecti on Allergy & Immunology [place], Nurse Allergy Scenery [address] [place] [address] 09/24/2023 Immunization/Injecti on Allergy & Immunology [place], Nurse Allergy Scenery [address] [place] [address] 09/25/2023 Office Visit Dermatology Tito Escobedo MD [address] [place] [address] 09/28/2023 Immunization/Injecti on Allergy & Immunology [place], Nurse Allergy Scenery [address] [place] [address] 10/08/2023 Office Visit Gastroenterology Onur Aburto CRNP [address] [place] [address] 01/01/2024 Office Visit Internal Medicine Lorelei Tam MD 200 [place] [address] 01/12/2024 Imaging Radiology 01/14/2024 Office Visit Allergy & Immunology Cayden Stewart MD [address] [facility] [place] [address] Health Maintenance Due Date Last Done Comments [...] Primary documented in this encounter Care Teams Clinic Md Associate Relationship Specialty Start Date End Date Lorelei Tam MD 200 [facility] [place] [address] PCP - General Internal Medicine 12/27/22 documented as of this encounter
--- OUTSIDE RECORDS SUMMARY | 2024-02-02 06:30 | External Medical Summary ---
Author Name Unknown Address Unknown Organization [id number]:[facility] [place] - [address] [place] [address] Laboratory Report Ordering Provider Test Date Status PREETHI PAUL 09/10/2023 15:34:57 Final Observation Date Value Abnormality Reference (Units ) Status Iron 09/10/2023 15:34:57 55 33-151 (ug/dL) Final Iron-binding capacity 09/10/2023 15:34:57 397 250-425 (ug/dL) Final Transferrin Sat % 09/10/2023 15:34:57 14 Below low normal 15-55 (%) Final Performing Location [facility] [place] - [address] [place] [address]
--- OUTSIDE RECORDS SUMMARY | 2024-02-02 06:30 | External Medical Summary | Summary of Care ---
Author Name Unknown Organization [facility] Address [address] [place] [address] Phone [phone] Care Team Providers Care Construction Manager Name Role Phone Lorelei Tam MD Primary Care Provider [phone] Reason for Visit * Reason Onset Date Comments Allergy Injection 09/07/2023 Encounter Details Date Type Department Care Team Description 09/07/2023 Immunization/In jection Allergy/Immunology [facility] [place] [address] [place] [address] [address] [address] [facility] [address] [place] [address] Allergic rhinitis, unspecified seasonality, unspecified trigger* Allergies Active Allergy Reactions Severity Noted Date Comments Pollen 04/28/2022 documented as of this encounter (statuses as of 09/07/2023) Medications Medication Sig Dispensed Refills Start Date [...] as of this encounter (statuses as of 09/07/2023) Active Problems Problem Noted Date Iron deficiency anemia 07/02/2023 Hyperlipidemia with target LDL less than 100 04/28/2022 Herpes simplex virus infection BMI 31.0-31.9,adult 04/28/2022 PTSD (post-traumatic stress disorder) Eczema 04/28/2022 Adenomatous polyp of colon 04/28/2022 documented as of this encounter (statuses as of 09/07/2023) Immunizations Name Administration Dates Next Due COVID-19 mRNA, LNP-s, No Pre serve, 2-Dose Series (Moderna) 10/20/2021,03/07/2021,02/07/2021 Covid-19, Mrna, Lnp-s, Pf, B ivalent, 30 Mcg, IM, 12 yrs and above ([employer]) 11/19/2022 Hepatitis B, 20+ yrs 07/06/2023,02/04/2023,01/05 SEASONAL [...] Progress Notes * Kandis Luna LPN - 09/07/2023 9:15 AM EDT Pre-injection Questionnaire Patient identified by [...] Encounters Date Type Specialty Care Team Description 09/08/2023 Office Visit General [facility] [address] 09/10/2023 Immunization/Injecti on Allergy & Immunology Nurse [place] All[facility] [address] [place] [address] 09/14/2023 Immunization/Injecti on Allergy & Immunology [place], Nurse Allergy Scenery [address] [place] [address] 09/17/2023 Immunization/Injecti on Allergy & Immunology [place], Nurse Allergy Scenery [address] [place] [address] 09/24/2023 Immunization/Injecti on Allergy & Immunology [place], Nurse Allergy Scenery [address] [place] [address] 09/25/2023 Office Visit Dermatology Tito Escobedo MD [address] [place] [address] 09/28/2023 Immunization/Injecti on Allergy & Immunology [place], Nurse Allergy Scenery [address] [place] [address] 10/08/2023 Office Visit Gastroenterology Onur Aburto, [place] [address] [facility] [place] [address] 01/01/2024 Office Visit Internal Medicine Lorelei Tam MD [address] [place] [address] 01/12/2024 Imaging Radiology 01/14/2024 Office Visit Allergy & Immunology Cayden [place] MD [address] [place] [address] Scheduled Procedures Name Priority Associated Diagnoses Date/Ti [...] Primary documented in this encounter Care Teams Construction Manager Relationship Specialty Start Date End Date Lorelei Tam MD [address] [facility] [place] [address] PCP - General Internal Medicine 12/27/22 documented as of this encounter
--- OUTSIDE RECORDS SUMMARY | 2024-02-02 06:30 | External Medical Summary ---
Author Name Unknown Address Unknown Organization K01:[facility] [place] - [address] [place] [address] Laboratory Report Ordering Provider Test Date Status NUBIA RUSHING 09/10/2023 15:34:57 Final Observation Date Value Abnormality Reference (Units ) Status Ferritin 09/10/2023 15:34:57 19 13-150 (ng /mL) Final Postmenopausal women have hi gher ferritin levels than pre-menopausal women. The above reference interval is based on pre-menopausal women. Performing Location [facility] [place] - [address] [place] [address]
--- OUTSIDE RECORDS SUMMARY | 2024-02-02 06:30 | External Medical Summary | Summary of Care ---
Author Name Unknown Organization [facility] Address [address] [place] [address] Phone [phone] Care Team Providers Care Roper Operator Name Role Phone Lorelei Tam MD Primary Care Provider [phone] Reason for Visit * Reason Onset Date Comments Allergy Injection 08/17/2023 Encounter Details Date Type Department Care Team Description 08/17/2023 Immunization/In jection Allergy/Immunology [facility] [place] [address] [place] [address] [place] Nurse Allergy [facility] [address] [place] [address] Allergic rhinitis, unspecified seasonality, unspecified trigger* Allergies Active Allergy Reactions Severity Noted Date Comments Pollen 04/28/2022 documented as of this encounter (statuses as of 08/17/2023) Medications Medication Sig Dispensed Refills Start Date [...] as of this encounter (statuses as of 08/17/2023) Active Problems Problem Noted Date Iron deficiency anemia 07/02/2023 Hyperlipidemia with target LDL less than 100 04/28/2022 Herpes simplex virus infection BMI 31.0-31.9,adult 04/28/2022 PTSD (post-traumatic stress disorder) Eczema 04/28/2022 Adenomatous polyp of colon 04/28/2022 documented as of this encounter (statuses as of 08/17/2023) Immunizations Name Administration Dates Next Due COVID-19 [...] Progress Notes * Heike Serrano LPN - 08/17/2023 2:06 PM EDT Pre-injection Questionnaire Patient identified by [...] Encounters Date Type Specialty Care Team Description 08/20/2023 Immunization/Injecti on Allergy & Immunology Nurse [place] [facility] [place] [address] [place] [address] [address] 08/24/2023 Immunization/Injecti on Allergy & Immunology [place] Nurse Allergy [place] [address] [place] [address] [address] 08/27/2023 Immunization/Injecti on Allergy & Immunology [place], Nurse Allergy Scenery [address] [place] [address] 08/31/2023 Immunization/Injecti on Allergy & Immunology [place], Nurse Allergy Scenery [address] [place] [address] 09/03/2023 Immunization/Injecti on Allergy & Immunology [place], Nurse Allergy Scenery [address] [place] [address] 09/07/2023 Immunization/Injecti on Allergy & Immunology [place], Nurse Allergy Scenery [address] [place] [address] 09/08/2023 Office Visit General Surgery Ashlyn Santo MD [address] [place] [address] 09/10/2023 Immunization/Injecti on Allergy & Immunology [place], Nurse Allergy Scenery [address] [place] [address] 09/14/2023 Immunization/Injecti on Allergy & Immunology [place], Nurse Allergy Scenery [address] [place] [address] 09/17/2023 Immunization/Injecti on Allergy & Immunology [place], Nurse Allergy Scenery [address] [place] [address] 09/21/2023 Immunization/Injecti on Allergy & Immunology [place], Nurse Allergy Scenery [address] [place] [address] 09/24/2023 Immunization/Injecti on Allergy & Immunology [place], Nurse Allergy Scenery [address] [place] [address] 09/25/2023 Office Visit Dermatology Tito Escobedo MD [address] [place] [address] 09/28/2023 Immunization/Injecti on Allergy & Immunology [place] Nurse Allergy [place] [address] [place] [address] 10/08/2023 Office Visit Gastroenterology Onur Aburto CRNP [address] [place] [address] 01/01/2024 Office Visit Internal Medicine Lorelei Tam MD [address] [place] [address] 01/12/2024 Imaging Radiology 01/14/2024 Office Visit Allergy & Immunology Cayden Steawrt MD [address] [place] [address] Health Maintenance Due Date Last Done Comments [...] 05/28/2023, 05/28/2023 Colorectal Cancer Screening Discontinued Hepatitis C Screening Completed 06/29/2023 , 06/29/2023, 06/29/2023 Hepatitis B Completed 07/06/2023, 01/21, 01/05/2023 Cologuard [...] Primary documented in this encounter Care Teams Roper Operator Relationship Specialty Start Date End Date Lorelei Tam MD [address] [place] [address] PCP - General Internal Medicine 12/27/22 documented as of this encounter
--- OUTSIDE RECORDS SUMMARY | 2024-02-02 06:30 | External Medical Summary ---
Author Name Unknown Address Unknown Organization K09:[facility] [place] [facility] [place] [id number] Laboratory Report Ordering Provider Test Date Status NUBIA RUSHING 09/10/2023 15:34:57 Final Observation Date Value Abnormality Reference (Units ) Status WBC, Total 09/10/2023 15:34:57 6.47 4.00-10.8 0 (K/uL) Final RBC 09/10/2023 15:34:57 4.33 3.85-5.15 (M/uL) Final Hemoglobin 09/10/2023 15:34:57 11.3 Below low normal 12 .0-15.3 (g/dL) Final HCT 09/10/2023 15:34:57 36.2 36.0-45.2 (%) Final MCV 09/10/2023 15:34:57 83.6 81.5-97.5 (fL) Final MCH 09/10/2023 15:34:57 26.1 27.0-34.0 (pg) Final MCHC 09/10/2023 15:34:57 31.2 32.0-36.0 (g/dL) Final RDW 09/10/2023 15:34:57 18.5 11.5-15.5 (%) Final Platelets 09/10/2023 15:34:57 239 140-400 (K /uL) Final MPV 09/10/2023 15:34:57 9.5 6.6-11.1 ( fL) Final Performing Location [facility] [place] [address]
--- OUTSIDE RECORDS SUMMARY | 2024-02-02 06:30 | External Medical Summary | Summary of Care ---
Author Name Unknown Organization [facility] Address [address] [place] [address] Phone [phone] Care Team Providers Care Intravenous Therapy Nurse Name Role Phone Lorelei Tam MD Primary Care Provider [phone] Reason for Visit * Reason Onset Date Comments Allergy Injection 09/10/2023 Encounter Details Date Type Department Care Team Description 09/10/2023 Immunization/In jection Allergy/Immunology [facility] [place] [address] [place] [address] [place] Nurse Allergy [facility] [address] [place] [address] Allergic rhinitis, unspecified seasonality, unspecified trigger* Allergies [...] 30 Mcg, IM, 12 yrs and above ([employer]) 11/19/2022 Hepatitis B, 20+ yrs 07/06/2023,02/04/2023,01/05 SEASONAL [...] Progress Notes * Heike Serrano LPN - 09/10/2023 9:04 AM EDT Pre-injection Questionnaire Patient identified by [...] Description 09/14/2023 Immunization/Injecti on Allergy & Immunology Nurse [place] All[facility] [address] [place] [address] [address] 09/17/2023 Immunization/Injecti on Allergy & Immunology [place] Nurse Allergy Scenery [address] [place] [address] [address] 09/22/2023 Office Visit General Surgery Ashlyn Santo MD [address] [place], [place] [address] 09/24/2023 Immunization/Injecti on Allergy & Immunology [place], Nurse Allergy Scenery [address] [place] [address] 09/25/2023 Office Visit Dermatology Tito Escobedo MD [address] [place] [address] 09/28/2023 Immunization/Injecti on Allergy & Immunology [place], Nurse Allergy Scenery [address] [place] [address] 10/08/2023 Office Visit Gastroenterology Onur Aburto CRNP [address] [place] [address] 01/01/2024 Office Visit Internal Medicine Lorelei Tam MD [address] [place] [address] 01/12/2024 Imaging Radiology 01/14/2024 Office Visit Allergy & Immunology Cayden Stewart MD [address] [place] [address] Scheduled Procedures Name Priority Associated Diagnoses Date/Ti [...] Primary documented in this encounter Care Teams Intravenous Therapy Nurse Relationship Specialty Start Date End Date Lorelei Tam MD 200 [facility] [place] [address] PCP - General Internal Medicine 12/27/22 documented as of this encounter
--- OUTSIDE RECORDS SUMMARY | 2024-02-02 06:30 | External Medical Summary | Summary of Care ---
Author Name Unknown Organization [facility] Address [address] [place] [address] Phone [phone] Care Team Providers Care Poultry Processor Name Role Phone Lorelei Tam MD Primary Care Provider [phone] Reason for Visit * Reason Onset Date Comments Allergy Injection 08/27/2023 Encounter Details Date Type Department Care Team Description 08/27/2023 Immunization/In jection Allergy/Immunology [facility] [address] [place] [address] [place] [facility] Allergy [facility] [address] [place] [address] Allergic rhinitis, unspecified seasonality, unspecified trigger* Allergies Active Allergy Reactions Severity Noted Date Comments Pollen 04/28/2022 documented as of this encounter (statuses as of 08/27/2023) Medications Medication Sig Dispensed Refills Start Date [...] as of this encounter (statuses as of 08/27/2023) Active Problems Problem Noted Date Iron deficiency anemia 07/02/2023 Hyperlipidemia with target LDL less than 100 04/28/2022 Herpes simplex virus infection BMI 31.0-31.9,adult 04/28/2022 PTSD (post-traumatic stress disorder) Eczema 04/28/2022 Adenomatous polyp of colon 04/28/2022 documented as of this encounter (statuses as of 08/27/2023) Immunizations Name Administration Dates Next Due COVID-19 mRNA, LNP-s, No Pre serve, 2-Dose Series (Moderna) 10/20/2021,03/07/2021,02/07/2021 Covid-19, Mrna, Lnp-s, Pf, B ivalent, 30 Mcg, IM, 12 yrs and above ([employer]) 11/19/2022 Hepatitis B, 20+ yrs 07/06/2023,02/04/2023,01/05 SEASONAL [...] Progress Notes * Heike Serrano LPN - 08/27/2023 9:22 AM EDT Pre-injection Questionnaire Patient identified by [...] Encounters Date Type Specialty Care Team Description 08/31/2023 Immunization/Injecti on Allergy & Immunology [facility] [address] [place] [address] 09/03/2023 Immunization/Injecti on Allergy & Immunology [place] [facility] [address] [place] [address] [address] 09/07/2023 Immunization/Injecti on Allergy & Immunology [place], [facility] [address] [place] [address] 09/08/2023 Office Visit General Surgery Ashlyn Santo MD [address] [place] [address] 09/10/2023 Immunization/Injecti on Allergy & Immunology [place], [facility] [address] [place] [address] 09/14/2023 Immunization/Injecti on Allergy & Immunology [place], [facility] [address] [place] [address] 09/17/2023 Immunization/Injecti on Allergy & Immunology [place], [facility] [address] [place] [address] 09/24/2023 Immunization/Injecti on Allergy & Immunology [place], [facility] [address] [place] [address] 09/25/2023 Office Visit Dermatology Tito Escobedo MD [address] [place] [address] 09/28/2023 Immunization/Injecti on Allergy & Immunology [place], [facility] [address] [place] [address] 10/08/2023 Office Visit Gastroenterology Onur Aburto CRNP [address] [facility] [place] [address] 01/01/2024 Office Visit Internal Medicine Lorelei Tam MD [address] [place] [address] 01/12/2024 Imaging Radiology 01/14/2024 Office Visit Allergy & Immunology Cayden Stewart MD [address] [place] [address] Health Maintenance Due Date Last Done Comments DTaP,Tdap,and Td Vaccines (1 - Tdap) 1996 Pap Smear 1998 Cervical Cancer Screening 2007 HPV/Co-Test 2007 COVID-19 Vaccine ( - 2022-24 season) 2023 11/19/2022, 10/20/2021, 03/07/2021, [...] Primary documented in this encounter Care Teams Poultry Processor Relationship Specialty Start Date End Date Lorelei Tam MD [address] [place] [address] [address] PCP - General Internal Medicine 12/27/22 documented as of this encounter
--- OUTSIDE RECORDS SUMMARY | 2024-02-02 06:31 | External Medical Summary | Summary of Care ---
Author Name Unknown Organization [facility] Address [address] [place] [address] Phone [phone] Care Team Providers Care Safety Sealer Name Role Phone Lorelei Tam MD Primary Care Provider [phone] Reason for Visit * Reason Onset Date Comments Allergy Injection 08/13/2023 Encounter Details Date Type Department Care Team Description 08/13/2023 Immunization/In jection Allergy/Immunology [facility] [place] [address] [place] [address] [place] Nurse Allergy [facility] [address] [place] [address] Allergic rhinitis, unspecified seasonality, unspecified trigger* Allergies Active Allergy Reactions Severity Noted Date Comments Pollen 04/28/2022 documented as of this encounter (statuses as of 08/13/2023) Medications Medication Sig Dispensed Refills Start Date [...] as of this encounter (statuses as of 08/13/2023) Active Problems Problem Noted Date Iron deficiency anemia 07/02/2023 Hyperlipidemia with target LDL less than 100 04/28/2022 Herpes simplex virus infection BMI 31.0-31.9,adult 04/28/2022 PTSD (post-traumatic stress disorder) Eczema 04/28/2022 Adenomatous polyp of colon 04/28/2022 documented as of this encounter (statuses as of 08/13/2023) Immunizations Name Administration Dates Next Due COVID-19 [...] Progress Notes * Heike Serrano LPN - 08/13/2023 9:09 AM EDT Pre-injection Questionnaire Patient identified by [...] General Surgery Ashlyn Santo MD [address] [place] [address] 09/25/2023 Office Visit Dermatology Tito Escobedo MD [address] [place] [id number] 10/08/2023 Office Visit Gastroenterology Onur Aburto CRNP [address] [place] [address] 01/01/2024 Office Visit Internal Medicine Lorelei Tam MD [address] [facility] [address] 01/12/2024 Imaging Radiology 01/14/2024 Office Visit Allergy & Immunology Cayden Stewart MD [address] [facility] [place] [address] Health Maintenance Due Date Last Done Comments [...] Primary documented in this encounter Care Teams Safety Sealer Relationship Specialty Start Date End Date Lorelei Tam MD [address] [facility] [place] [id number] PCP - General Internal Medicine 12/27/22 documented as of this encounter
--- OUTSIDE RECORDS SUMMARY | 2024-02-02 06:31 | External Medical Summary | Summary of Care ---
Author Name Unknown Organization [facility] Address [address] [place] [address] Phone [phone] Care Team Providers Care Bandoleer Straightener Stamper Name Role Phone Lorelei Tam MD Primary Care Provider [phone] Reason for Visit * Reason Comments Outpatient Testing Encounter Details Date Type Department Care Team Description 08/06/2023 Laboratory Laboratory [facility] [employer] [address] [place] [id number] Pod3, Specimen Drop Off [facility] [address] [place] [address] Helicobacter pylori gastritis Allergies Active Allergy Reactions Severity Noted Date Comments Pollen 04/28/2022 documented as of this encounter (statuses as of 08/06/2023) Medications Medication Sig Dispensed Refills Start Date [...] as of this encounter (statuses as of 08/06/2023) Active Problems Problem Noted Date Iron deficiency anemia 07/02/2023 Hyperlipidemia with target LDL less than 100 04/28/2022 Herpes simplex virus infection BMI 31.0-31.9,adult 04/28/2022 PTSD (post-traumatic stress disorder) Eczema 04/28/2022 Adenomatous polyp of colon 04/28/2022 documented as of this encounter (statuses as of 08/06/2023) Immunizations Name Administration Dates Next Due COVID-19 [...] Encounters Date Type Specialty Care Team Description 08/06/2023 Immunization/Injecti on Allergy & Immunology [place], [facility] [address] [place] [address] 08/10/2023 Immunization/Injecti on Allergy & Immunology [place], [facility] [address] [place] [address] 08/13/2023 Immunization/Injecti on Allergy & Immunology [place], [facility] [address] [place] [address] 09/07/2023 Office Visit General Surgery Ashlyn Santo MD [address] [place] [address] 09/25/2023 Office Visit Dermatology Tito Escobedo MD [address] [place] [address] 10/08/2023 Office Visit Gastroenterology Onur Aburto CRNP [address] [facility] [place] [address] 01/01/2024 Office Visit Internal Medicine Lorelei Tam MD [address] [place] [address] 01/12/2024 Imaging Radiology 01/14/2024 Office Visit Allergy & Immunology Cayden Stewart MD [address] [place] [address] Pending Results Name Type Priority Associated Diagnoses Date /Time HELICOBACTER PYLORI ANTIGEN, EIA, STOOL Lab Routine Helicobacter pylori gastritis 08/06/2023 8:42 AM EDT Health Maintenance Due Date Last Done Comments [...] as of this encounter Visit Diagnoses Diagnosis Helicobacter pylori gastritis Helicobacter pylori (H. pylori) documented in this encounter Care Teams Bandoleer Straightener Stamper Relationship Specialty Start Date End Date Lorelei Tam MD [address] [place] [address] PCP - General Internal Medicine 12/27/22 documented as of this encounter
--- OUTSIDE RECORDS SUMMARY | 2024-02-02 06:31 | External Medical Summary | Summary of Care ---
Author Name Unknown Organization [facility] Address [address] [place] [address] Phone [phone] Care Team Providers Care Software Architect Name Role Phone Lorelei Tam MD Primary Care Provider [phone] Reason for Visit * Reason Onset Date Comments Allergy Injection 08/06/2023 Encounter Details Date Type Department Care Team Description 08/06/2023 Immunization/In jection Allergy/Immunology [facility] [place] [address] [place] [address] [place] Nurse Allergy [facility] [address] [place] [address] Allergic rhinitis, unspecified seasonality, unspecified trigger* Allergies [...] Progress Notes * Heike Serrano LPN - 08/06/2023 3:33 PM EDT Pre-injection Questionnaire Patient identified by [...] Encounters Date Type Specialty Care Team Description 08/10/2023 Immunization/Injecti on Allergy & Immunology [facility] [place] [address] [place] [address] 08/13/2023 Immunization/Injecti on Allergy & Immunology [place] [facility] [place] [address] [place] [address] [address] 09/08/2023 Office Visit General Surgery Ashlyn Santo MD [address] [place] [address] 09/25/2023 Office Visit Dermatology Tito Escobedo MD [address] [place], [place] [id number] 10/08/2023 Office Visit Gastroenterology Onur Aburto CRNP [address] [place] [address] 01/01/2024 Office Visit Internal Medicine Lorelei Tam MD [address] [place] [address] 01/12/2024 Imaging Radiology 01/14/2024 Office Visit Allergy & Immunology Cayden Stewart MD [address] [place] [address] Health Maintenance Due Date Last Done Comments [...] Primary documented in this encounter Care Teams Software Architect Relationship Specialty Start Date End Date Lorelei Tam MD [address] [place] [address] PCP - General Internal Medicine 12/27/22 documented as of this encounter
--- OUTSIDE RECORDS SUMMARY | 2024-02-02 06:31 | External Medical Summary ---
Author Name Unknown Address Unknown Organization : Laboratory Report Ordering Provider Test Date Status NUBIA RUSHING 08/06/2023 08:42:53 Final Observation Date Value Abnormality Reference (Units ) Status result / comment 08/06/2023 08:42:53 Not Detected Not Detected Final Antimicrobials, proton pump inhibitors, and bismuth
preparations inhibit H. pylori and ingestion up to
two weeks prior to testing may cause false negative
results. If clinically indicated the test should
be repeated on a new specimen obtained two weeks
after discontinuing treatment.

Test Performed at:
[employer] [facility]
[address] [facility]
[place] [address]
Harmeet Edmond M.D., Ph.D.,Director of Laboratories Performing Location
--- OUTSIDE RECORDS SUMMARY | 2024-02-02 06:31 | External Medical Summary | Summary of Care ---
Author Name Unknown Organization [facility] Address [address] [place] [address] Phone [phone] Care Team Providers Care Drawing Supervisor Name Role Phone Lorelei Tam MD Primary Care Provider [phone] Reason for Visit * Reason Onset Date Comments Allergy Injection 08/10/2023 Encounter Details Date Type Department Care Team Description 08/10/2023 Immunization/In jection Allergy/Immunology [facility] [place] [address] [place] [address] [place] Nurse Allergy [facility] [address] [place] [address] Allergic rhinitis, unspecified seasonality, unspecified trigger* Allergies Active Allergy Reactions Severity Noted Date Comments Pollen 04/28/2022 documented as of this encounter (statuses as of 08/10/2023) Medications Medication Sig Dispensed Refills Start Date [...] as of this encounter (statuses as of 08/10/2023) Active Problems Problem Noted Date Iron deficiency anemia 07/02/2023 Hyperlipidemia with target LDL less than 100 04/28/2022 Herpes simplex virus infection BMI 31.0-31.9,adult 04/28/2022 PTSD (post-traumatic stress disorder) Eczema 04/28/2022 Adenomatous polyp of colon 04/28/2022 documented as of this encounter (statuses as of 08/10/2023) Immunizations Name Administration Dates Next Due COVID-19 [...] Progress Notes * Heike Serrano LPN - 08/10/2023 9:13 AM EDT Pre-injection Questionnaire Patient identified by [...] Encounters Date Type Specialty Care Team Description 08/13/2023 Immunization/Injecti on Allergy & Immunology [facility] [place] [place] [address] [place] [address] 09/08/2023 Office Visit [facility] [address] [facility] [address] 09/25/2023 Office Visit Dermatology Tito Escobedo MD [address] [place] [address] 10/08/2023 Office Visit Gastroenterology Onur Aburto CRNP [address] [place] [address] 01/01/2024 Office Visit Internal Medicine Lorelei Tam MD [address] [place] [address] 01/12/2024 Imaging Radiology 01/14/2024 Office Visit Allergy & Immunology Cayden Stewart MD [address] [place] [address] Health Maintenance Due Date Last Done Comments [...] Primary documented in this encounter Care Teams Drawing Supervisor Relationship Specialty Start Date End Date Lorelei Tam MD [address] [place] [address] PCP - General Internal Medicine 12/27/22 documented as of this encounter
[2024-02-02] MEDS ORDERED: methylPREDNISolone 4 MG TAB PO SCH (07:00)
[2024-02-03] MEDS ORDERED: methylPREDNISolone 4 MG TAB PO SCH (07:00)
[2024-02-04] MEDS ORDERED: methylPREDNISolone 4 MG TAB PO SCH (07:00)
[2024-02-05] MEDS ORDERED: methylPREDNISolone 4 MG TAB PO SCH (07:00)
== END 2024-02-01 18:39 | disposition home or self-care (01) ==
LOC: ED 13:29 → 2N 13:29 → SUATTDRO 18:57 → 2N 20:55